=== PATIENT | female | born 1945 | race Caucasian/White ===

== ENCOUNTER → 2017-08-16 10:18 | Outpatient (CLI) | payer MEDICARE, SELFPAY ==
--- NOTE | 2017-08-16 10:23 | MM_ITS ---
. MM Dig screening mamm BI w/CAD CAD Screening ORDERING PHYSICIAN : Artem Osborne MD PATIENT AGE: 72 years GENDER: Female COMPARISON: Previous mammograms: August 2016, July 2015, June 2014. May 2013 INDICATION: No hormones no new complaints noncontributory family history TECHNIQUE: Standard CC and MLO images were obtained. R2 CAD reviewed. FINDINGS: Low-density breast with generalized fatty replacement bilaterally . There are some small scattered benign spherical calcifications bilaterally compatible with small lipoid cysts. No new areas of concern. Stable appearance and architecture both breast. No architectural distortion.. No areas of concern. . IMPRESSION: No new areas of concern. Stable bilateral mammogram. Low-density breast with Fatty replacement bilaterally. BI-RADS Category: 1 Negative RECOMMENDED FOLLOW-UP: 1YR - 1 YEAR FOLLOW-UP (A letter has been sent to the patient regarding results of the study.)
== END ==
PROVIDERS: PCP Family Medicine; Visit Provider Family Medicine
DX: Z12.31 Encounter for screening mammogram for malignant neoplasm of breast (principal)
CPT/HCPCS: 77067

== ENCOUNTER → 2018-01-03 10:21 | Outpatient (CLI) | payer MEDICARE, SELFPAY ==
[2018-01-03 11:14] LABS: Blood Urea Nitrogen 22 mg/dL (7-18); Creatinine,Serum 1.37 mg/dL (0.55-1.02); Estimated Glomerular Filt Rate 38 ml/min (>60); GFR (African American) 46 ML/MIN (>60)
== END ==
PROVIDERS: PCP Family Medicine; Visit Provider Family Medicine
DX: R10.32 Left lower quadrant pain (principal)
CPT/HCPCS: 36415; 82565; 84520

== ENCOUNTER → 2018-01-06 09:33 | Outpatient (CLI) | payer MEDICARE, SELFPAY ==
[2018-01-06 10:44] LABS: Blood Urea Nitrogen 22 mg/dL (7-18); Creatinine,Serum 1.09 mg/dL (0.55-1.02); Estimated Glomerular Filt Rate 49 ml/min (>60); GFR (African American) 60 ML/MIN (>60)
== END ==
PROVIDERS: PCP Family Medicine; Visit Provider Family Medicine
DX: N28.9 Disorder of kidney and ureter, unspecified (principal)
CPT/HCPCS: 36415; 82565; 84520

== ENCOUNTER → 2018-01-10 10:11 | Outpatient (CLI) | payer MEDICARE, SELFPAY ==
--- NOTE | 2018-01-10 10:20 | CT_ITS ---
CT abdomen pelvis w con CLINICAL INDICATION: Lower abdominal pain, left lower quadrant pain, nausea and diarrhea ITS.REASON: LLQ PAIN ORDERING PHYSICIAN: Artem Osborne MD PATIENT AGE: 72 years COMPARISON: None TECHNIQUE: Axial images obtained with sagittal and coronal reformats. All CT scans at the facility use one or more dose reduction, viz: automated exposure control, ma/kV adjustment per patient size (including targeted exams where dose is matched to indication, i.e. head), or iterative reconstruction technique. PROCEDURE: Oral Contrast: Redicat IV Contrast: 75 mL's of Isovue-370. FINDINGS: There is an 8 mm nodular opacity in the left lung base nonspecific. Mitral valve annular calcifications are present and there are coronary artery calcifications noted. 5 mm isodensity is present in the right hepatic lobe nonspecific. The liver is otherwise unremarkable. There has been a prior cholecystectomy with mild ductal dilatation. Small focus of gas noted in the lateral aspect of the pancreatic head and may be due to a diverticulum of the duodenum. This appears anterior to the common bile duct. The adrenal glands and pancreas are unremarkable. There are nonobstructing bilateral renal calculi measuring up to 3 mm in the lower pole on the right and 8 mm in the mid to lower pole on the left. No hydronephrosis. No ureteral calculi. There is a 3.5 cm left renal cyst. There is some peripheral calcification along the lower aspect of the cyst nonspecific. Follow-up recommended to confirm stability. There is diverticulosis of the descending colon. No evidence of diverticulitis. Small umbilical hernia containing fat. No pelvic mass abnormal fluid collection or focal inflammatory change evident within the pelvis. Multilevel degenerative disc disease is present in the lumbar spine. IMPRESSION: 1. No acute findings. 2. Nonobstructing bilateral renal calculi. 3. Diverticulosis of the descending colon. No evidence of diverticulitis 4. Other nonacute findings as described above
== END ==
PROVIDERS: PCP Family Medicine; Visit Provider Family Medicine
DX: R10.32 Left lower quadrant pain (principal)
CPT/HCPCS: 74177; Q9967

== ENCOUNTER → 2018-01-13 14:37 | Outpatient (CLI) | payer MEDICARE, SELFPAY ==
[2018-01-13 14:40] LABS: Microscopic, Urine URINE MICROSCOPIC (MICROSCOPIC)
[2018-01-13 15:00] LABS: Appearance,Urine SL CLOUDY (Clear); Bilirubin,Urine Negative (Negative); Blood, Urine Negative (Negative); Color,Urine YELLOW (Yellow); Glucose,Urine (UA) Negative (Negative); Ketones,Urine Negative (Negative); Leukocyte Esterase,Urine 2+ (Negative); Nitrate,Urine Negative (Negative); Protein,Urine Negative (Negative); Urobilinogen,Urine 0.2 EU/dl (0.2)
[2018-01-13 15:27] LABS: Bacteria,Urine 2+ /lpf; RBC,Urine Occasional #/hpf (0-3); WBC,Urine 20-50 #/hpf (0-3)
== END ==
PROVIDERS: PCP Family Medicine; Visit Provider Family Medicine
DX: N39.0 Urinary tract infection, site not specified (principal)
CPT/HCPCS: 81001; 87086; 87088; 87186

== ENCOUNTER → 2018-02-02 08:45 | Outpatient (CLI) | payer MEDICARE, SELFPAY ==
--- NOTE | 2018-02-02 09:16 | MR_ITS ---
MR abdomen wo/w con 3-D MRCP included Ordering Physician: Krystin Munoz Patient Age: 72 years: Female HISTORY: ITS.REASON: Small LIVER MASSreported on a previous CT abdominal pain 9 months intermittent nausea vomiting. TECHNIQUE: Pre and postcontrast imaging abdomen. Precontrast images: Multiplanar multisequence imaging 1.5 T MR Dynamic Postcontrast imaging following 17 mL ProHance with subsequent axial arterial phase, venous phase, equilibrium phase and 5 minute delayed imaging performed along with the three-minute coronal postcontrast image In addition to MRCP performed which included 3-D processing presentation of this data. It. 76 CPT Today's study images extends down to the superior to the iliac crest.-Just to the inferior aspect of kidneys. Pelvis not imaged COMPARISON :CT abdomen pelvis from 01/10/2018 FINDINGS Lung bases. No prominent findings. Breathing motion Motion artifact obscures the small likely benign 8mm nodular density just above left hemidiaphragm. Also note similar small focal nodular density adjacent right heart border just above right hemidiaphragm... I suspect these are benign densities possibility due to some scarring but would benefit from a follow-up CT chest May-July. Heart upper normal in size. No pericardial effusion. Pre and postcontrast MR Abdomen: Liver. Very small 6 mm area at the central right lobe liver is again noted. Benign-appearing feature. Fluid signal and overall suspect this is most likely a small debris filled cyst by MR as well as CT.. This shows no enhancement. No additional lesions in liver Gallbladder removed surgically.No biliary ductal dilatation. Pancreas. There is normal. No masses. No pancreatic ductal dilatation. . Small dot of air between just anterior to the ampulla of duodenum/most likely related air and duodenum were possibly a small diverticulum. 'Prior CT and today's study. What is seen at the small bowel and stomach are unremarkable on this MR. The upper portions of the large bowel unremarkable. Pelvis was not imaged. The final images include the Aorta normal caliber with no retroperitoneal adenopathy here at the upper abdomen Right Kidney:. Unremarkable Left Kidney.: 3.6 cm AP x 3.2 cm transverse. Lobulated cyst upper pole left kidney There is layering of different signal character fluid within posterior aspect of this slightly lobulated/slightly multilocular cyst. This likely reflects some hemorrhagic cyst component with the deep dependent fluid posteriorly dark on T1 weighted images and bright on T2... Just opposite of the typical simple cyst fluid. This area has a Rather Vandem[place] leaf shape with few thin septations associated but with no definitive enhancement. Also there likely some minimal calcification inferior margin of the cyst as seen on previous CT. This Bosniak 2F type cyst would also benefit from follow-up CT abdomen with contrast May-July 2018. . There is also flat ovoid cyst off the anterior mid right kidney measuring near 18 transverse x 10 mm AP. There was a moderate size 7 mm calculus immediately inferior & adjacent to the medial aspect of the cyst on prior recent CT. This Calcification difficult to appreciate by MR. Other small renal calculi seen on prior CT but again not evident on MR-Due to the nature of this MR.; (Whereas CT is a highly sensitive calcification detector).. Multilevel degenerative disc changes spine. Moderate Dextroscoliosis at the lumbar spine most notable. . Slight compensatory levoscoliosis at the thoracolumbar region/lower thoracic spine. IMPRESSION 1. Liver. No significant appearing findings. Tiny 6 mm probably benign cyst again seen at the central right lobe. Stable since recent CT 2. Left Renal Cysts ... Most notable Up to
[2018-02-02 09:26] LABS: Alanine Aminotransferase 21 U/L (12-78); Albumin Level 3.7 gm/dL (3.4-5.0); Alkaline Phosphatase 140 U/L (46-116); Anion Gap 10.9 mEq/L (5-15); Aspartate Amino Transferase 14 U/L (15-37); Bilirubin,Total 0.8 mg/dL (0.2-1.0); Blood Urea Nitrogen 19 mg/dL (7-18); Calcium 8.8 mg/dL (8.5-10.1); Carbon Dioxide 28 mmol/L (21.0-32.0); Chloride 104 mmol/L (98-107); Estimated Glomerular Filt Rate 62 ml/min (>60); GFR (African American) 75 ML/MIN (>60); Globulin 3.6 gm/dl (1.3-3.2); Glucose 101 mg/dL (74-106); Potassium 3.9 mmoL/L (3.5-5.1); Sodium 139 mmol/L (136-145); Total Protein,Serum 7.3 gm/dL (6.4-8.2)
[2018-02-02 09:31] LABS: Basophils # 0.1 K/mm3 (0-0.2); Basophils % 0.6 % (0.1-2.0); Eosinophils # 0.3 K/mm3 (0.0-0.4); Eosinophils % 3.4 % (0.1-12.0); Hematocrit 40.1 % (37.0-47.0); Lymphocytes # 2.1 K/mm3 (0.7-4.5); Lymphocytes % 28.4 K/mm3 (10-50); Mean Corpuscular HGB Conc 32.6 g/dL (31.8-35.4); Mean Corpuscular Hemoglobin 29.2 pg (27.0-31.2); Mean Corpuscular Volume 89.8 fl (81-99); Mean Platelet Volume 6.9 fl (7.4-10.4); Monocytes # 0.5 K/mm3 (0.1-1.0); Monocytes % 6.1 % (1.7-9.3); Neutrophils # 4.6 K/mm3 (1.8-7.8); Neutrophils % 61.5 % (37.0-80.0); Platelet Count 274 K/mm3 (142-424); Red Blood Count 4.46 M/mm3 (4.20-5.40); Red Cell Distribution Width 15.6 % (11.5-17.5); White Blood Count 7.5 K/mm3 (4.8-10.8)
--- NOTE | 2018-02-02 10:52 | HMH.ITSHM ---
ASTORVASTATIN LOSARTAN LEVOTHYROXINE ASPIRIN POTASSIUM VITAMIN D
[2018-02-03 12:40] LABS: AFP, Tumor Marker 10.3 ng/mL (0.0-8.3)
== END ==
PROVIDERS: PCP Family Medicine; Visit Provider Nurse Practitioner Acute Care
DX: R16.0 Hepatomegaly, not elsewhere classified (principal); R93.2 Abnormal findings on diagnostic imaging of liver and biliary tract
CPT/HCPCS: 36415; 74183; 80053; 82105; 85025; A9576

== ENCOUNTER → 2018-02-13 10:09 | Outpatient (CLI) | payer MEDICARE, SELFPAY ==
[2018-02-13 11:02] LABS: Basophils % 0.5 % (0.1-2.0); Eosinophils # 0.2 K/mm3 (0.0-0.4); Eosinophils % 2.7 % (0.1-12.0); Hematocrit 36.5 % (37.0-47.0); Hemoglobin 12.2 g/dL (12.2-16.2); Lymphocytes # 2.2 K/mm3 (0.7-4.5); Lymphocytes % 28.2 K/mm3 (10-50); Mean Corpuscular HGB Conc 33.5 g/dL (31.8-35.4); Mean Corpuscular Hemoglobin 29.5 pg (27.0-31.2); Mean Corpuscular Volume 88.1 fl (81-99); Mean Platelet Volume 7.2 fl (7.4-10.4); Monocytes # 0.4 K/mm3 (0.1-1.0); Monocytes % 5.3 % (1.7-9.3); Neutrophils # 4.8 K/mm3 (1.8-7.8); Neutrophils % 63.2 % (37.0-80.0); Platelet Count 286 K/mm3 (142-424); Red Blood Count 4.14 M/mm3 (4.20-5.40); Red Cell Distribution Width 14.7 % (11.5-17.5); White Blood Count 7.6 K/mm3 (4.8-10.8)
[2018-02-13 11:06] LABS: INR 1.02 (0.9-1.1); Prothrombin Time 10.5 seconds (9.4-11.8)
[2018-02-13 11:53] LABS: Alanine Aminotransferase 18 U/L (12-78); Albumin Level 3.5 gm/dL (3.4-5.0); Albumin/Globulin Ratio 1.1 (1.1-1.8); Alkaline Phosphatase 128 U/L (46-116); Anion Gap 14.2 mEq/L (5-15); Aspartate Amino Transferase 17 U/L (15-37); Bilirubin,Total 0.7 mg/dL (0.2-1.0); Blood Urea Nitrogen 23 mg/dL (7-18); Calcium 9.1 mg/dL (8.5-10.1); Carbon Dioxide 27 mmol/L (21.0-32.0); Chloride 104 mmol/L (98-107); Creatinine,Serum 0.93 mg/dL (0.55-1.02); Estimated Glomerular Filt Rate 59 ml/min (>60); Ferritin 24 ng/mL (8-388); GFR (African American) 72 ML/MIN (>60); Globulin 3.1 gm/dl (1.3-3.2); Glucose 117 mg/dL (74-106); Potassium 3.2 mmoL/L (3.5-5.1); Sodium 142 mmol/L (136-145); Total Protein,Serum 6.6 gm/dL (6.4-8.2)
[2018-02-14 09:18] LABS: Hep A Ab, IgM Negative (Negative); Hepatitis B Core Antibody IgM Negative (Negative); Hepatitis B Surface Antigen Negative (Negative); Iron 74 ug/dL (27-139); Iron Saturation 23 % (15-55); UIBC 253 ug/dL (118-369)
[2018-02-14 10:20] LABS: Ceruloplasmin 28.7 mg/dL (19.0-39.0); Immunoglobulin A, Qn 226 mg/dL (64-422); Immunoglobulin G, Qn 840 mg/dL (700-1600)
[2018-02-14 15:24] LABS: Angiotensin Converting Enzyme 38 U/L (14-82)
[2018-02-15 07:29] LABS: AFP, Tumor Marker 9.2 ng/mL (0.0-8.3)
[2018-02-15 07:29] LABS: Actin (Smooth Muscle) Antibody 10 Units (0-19); Deamidated Gliadin Abs, IgA 4 units (0-19); Endomysial IgA Antibody Negative (Negative); Hepatitis C Antibody <0.1 s/co ratio (0.0-0.9); Immunoglobulin M, Qn 82 mg/dL (26-217); Liver-Kidney Microsomal Ab <1.0 Units (0.0-20.0); Mitochondrial (M2) Antibody <20.0 Units (0.0-20.0); Tissue Transglutaminase IgG Ab <2 U/mL (0-5)
[2018-02-15 07:30] LABS: Antinuclear Antibodies, IFA Negative (.)
[2018-02-15 14:19] LABS: Deamidated Gliadin Abs, IgG 3 units (0-19); Tissue Transglutaminase IgA Ab <2 U/mL (0-3)
[2018-02-15 16:24] LABS: Alpha-1-Antitrypsin 150 mg/dL (90-200)
[2018-02-16 08:08] LABS: Reticulin IgA Antibody Negative titer (Neg:<1:2.5)
[2018-02-16 09:24] LABS: ALT (SGPT) P5P 11 IU/L (0-40); AST (SGOT) P5P 19 IU/L (0-40); Alpha 2-Macroglobulins, Qn 190 mg/dL (110-276); Apolipoprotein A-1 126 mg/dL (116-209); Bilirubin, Total 0.5 mg/dL (0.0-1.2); Cholesterol, Total 137 mg/dL (100-199); Fibrosis Score 0.21 (0.00-0.21); GGT 15 IU/L (0-60); Glucose 116 mg/dL (65-99); Haptoglobin 181 mg/dL (34-200); Steatosis Score 0.58 (0.00-0.30); Triglycerides 168 mg/dL (0-149)
== END ==
PROVIDERS: PCP Family Medicine; Visit Provider Nurse Practitioner Acute Care
DX: R94.5 Abnormal results of liver function studies (principal); R16.0 Hepatomegaly, not elsewhere classified; K57.30 Diverticulosis of large intestine without perforation or abscess without bleeding; K59.00 Constipation, unspecified; K30 Functional dyspepsia; R93.3 Abnormal findings on diagnostic imaging of other parts of digestive tract
CPT/HCPCS: 36415; 80053; 80074; 81256; 82103; 82104; 82105; 82164; 82390; 82728; 82784; 83516; 83540; 83550; 85025; 85610; 86038; 86255; 86256; 86376

== ENCOUNTER → 2018-03-06 10:44 | Outpatient (POV) | payer MEDICARE, SELFPAY | PROVIDERS: Visit Provider Nurse Practitioner Acute Care | DX: Z00.00 Encounter for general adult medical examination without abnormal findings (principal) ==

== ENCOUNTER → 2018-03-09 09:03 | Outpatient (CLI) | payer MEDICARE, SELFPAY ==
[2018-03-09 09:06] LABS: Microscopic, Urine URINE MICROSCOPIC (MICROSCOPIC)
[2018-03-09 09:18] LABS: Appearance,Urine CLEAR (Clear); Bilirubin,Urine Negative (Negative); Blood, Urine Negative (Negative); Color,Urine YELLOW (Yellow); Glucose,Urine (UA) Negative (Negative); Ketones,Urine Negative (Negative); Leukocyte Esterase,Urine Negative (Negative); Nitrate,Urine Negative (Negative); Protein,Urine Negative (Negative); Urobilinogen,Urine 0.2 EU/dl (0.2)
[2018-03-09 09:29] LABS: Bacteria,Urine 1+ /lpf; Mucus,Urine 3+ /lpf
== END ==
PROVIDERS: Visit Provider Family Medicine
DX: Z87.440 Personal history of urinary (tract) infections (principal); R82.90 Unspecified abnormal findings in urine
CPT/HCPCS: 81001; 87086

== ENCOUNTER → 2018-05-15 16:06 | Outpatient (POV) | payer MEDICARE, SELFPAY | PROVIDERS: Visit Provider Nurse Practitioner Acute Care | DX: Z00.00 Encounter for general adult medical examination without abnormal findings (principal) ==

== ENCOUNTER → 2018-06-21 09:29 | Outpatient (CLI) | payer MEDICARE, SELFPAY ==
--- NOTE | 2018-06-21 09:34 | CT_ITS ---
CT chest w con HISTORY: Follow-up lung nodule ITS.REASON: LUNG NODULE ORDERING PHYSICIAN: Artem Osborne MD PATIENT AGE: 73 years COMPARISON: 01/10/2018 TECHNIQUE: Axial images obtained following the administration of 75 mL of Isovue 370 . Sagittal, and coronal reformatted images are also generated and reviewed. All CT scans at the facility use one or more dose reduction, viz: automated exposure control, ma/kV adjustment per patient size (including targeted exams where dose is matched to indication, i.e. head), or iterative reconstruction technique. FINDINGS: No mediastinal or hilar mass or adenopathy is evident. There is a small hiatal hernia. Coronary artery calcifications are present. There is a 12 x 9 mm nodular opacity in the right lung base medially adjacent to the right heart border. Not significantly changed. Continued follow-up is recommended. Small nodular opacities present in the left lung base well measuring 8 mm unchanged. No effusions or infiltrates. No acute bony findings. There is mild thoracic scoliosis convex left with tortuosity of the thoracic aorta. There are degenerative changes in the thoracic spine. IMPRESSION: There is a 12 x 8 mm nodular opacity in the right lung base medially possibly due to an intrapulmonary lymph node. Cannot exclude the possibility of neoplasm. The nodular opacity in the left lung base is unchanged and may be related to an area of fibrosis. Continued six-month follow-up is recommended.
--- NOTE | 2018-06-21 09:35 | CT_ITS ---
CT abdomen w con CLINICAL INDICATION: Follow-up renal mass ITS.REASON: RENAL NEOPLASM ORDERING PHYSICIAN: Artem Osborne MD PATIENT AGE: 73 years COMPARISON: 02/02/2018, 01/10/2018 TECHNIQUE: Axial images obtained with sagittal and coronal reformats. All CT scans at the facility use one or more dose reduction, viz: automated exposure control, ma/kV adjustment per patient size (including targeted exams where dose is matched to indication, i.e. head), or iterative reconstruction technique. PROCEDURE: Oral Contrast: None IV Contrast: 75 mL's Optiray 350. FINDINGS: Lower thorax: Please see chest CT report of same day for description of the lung bases There is a small isodensity in the right hepatic lobe at 4 mm not significant change. No new liver lesions evident. Postcholecystectomy change. The spleen, adrenal glands, and pancreas are unremarkable. There is a small duodenal diverticulum projecting off the descending portion of the duodenum medially. A lobulated left renal cyst is once again noted along the posterior aspect of the left kidney measuring 3.6 x 3.4 cm not significant changed. There is minimal calcification along the wall process anteriorly. A nonobstructing stone is present in the mid pole of the left kidney at 10 mm. 4 mm stone along the lower pole the left kidney nonobstructing as well as a additional 2 mm stone. These are not significantly changed. Punctate calculus also noted lower pole of the right kidney at 2 mm. Calyceal diverticulum is present in the upper pole on the left at 18 mm unchanged. No new abnormalities of the kidneys. There is a small umbilical hernia containing fat. No acute bony anomalies. There are degenerative changes of the thoracic lumbar spine. IMPRESSION: Overall stable CT appearance of the upper abdomen with bilateral nephrolithiasis and lobulated left renal cyst as well as a small calyceal diverticulum. No change 4 mm isodensity of the liver which may represent small hepatic cyst.
--- NOTE | 2018-06-21 10:01 | HMH.ITSHM ---
Current Home Medications as stated by this patient Pebbles Jackson or account services representative. []LIPITOR,LOSARTIN,LEVOTHYROXINE,ASPRIN BACTRIM
== END ==
PROVIDERS: PCP Family Medicine; Visit Provider Family Medicine
DX: D49.519 Neoplasm of unspecified behavior of unspecified kidney (principal); R91.1 Solitary pulmonary nodule
CPT/HCPCS: 71260; 74160

== ENCOUNTER → 2018-09-08 09:10 | Outpatient (CLI) | payer MEDICARE, SELFPAY ==
--- NOTE | 2018-09-08 09:13 | MM_ITS ---
MM Dig screening mamm BI w/CAD ORDERING PHYSICIAN : Artem Osborne MD PATIENT AGE: 73 years GENDER: Female COMPARISON: August, July 2015. June 2014 INDICATION: I.Routine screening mammogram. Period. No hormones. No new complaints. Noncontributory family history. TECHNIQUE: Standard CC and MLO images were obtained. R2 CAD reviewed. Additional CC nipple profile view bilateral. FINDINGS: Low-density breast with diffuse fatty replacement.. Mammography screening is most optimal breast of this character No new areas of significant concern. No suspicious nor dominant mass Scattered benign calcifications bilaterally. Tiny oil cysts bilaterally. Some with partially calcified spherical margin. RIGHT BREAST:Stable right mammogram follow-up in one year LEFT BREAST:Stable left mammogram. . Follow up one year bilateral IMPRESSION: ............ Stable bilateral mammogram with no significant new findings. Low-density breast. Diffuse fatty replacement Bilateral follow-up one year recommended BI-RADS Category: 1 Negative RECOMMENDED FOLLOW-UP: 1YR 1 YEAR FOLLOW-UP (A letter has been sent to the patient regarding results of the study.)
== END ==
PROVIDERS: PCP Family Medicine; Visit Provider Family Medicine
DX: Z12.31 Encounter for screening mammogram for malignant neoplasm of breast (principal)
CPT/HCPCS: 77067

== ENCOUNTER → 2019-05-22 14:48 | Outpatient (POV) | payer MEDICARE, SELFPAY | PROVIDERS: Visit Provider Dermatology | DX: Z00.00 Encounter for general adult medical examination without abnormal findings (principal) ==

== ENCOUNTER → 2019-12-19 09:14 | Outpatient (CLI) | payer MEDICARE, SELFPAY ==
[2019-12-19 09:46] LABS: Basophils % 0.5 % (0.1-2.0); Eosinophils # 0.2 K/mm3 (0.0-0.4); Eosinophils % 2.6 % (0.1-12.0); Hematocrit 35.2 % (37.0-47.0); Hemoglobin 11.9 g/dL (12.2-16.2); Lymphocytes # 1.9 K/mm3 (0.7-4.5); Lymphocytes % 26.8 % (10-50); Mean Corpuscular HGB Conc 33.9 g/dL (31.8-35.4); Mean Corpuscular Hemoglobin 29.6 pg (27.0-31.2); Mean Corpuscular Volume 87.3 fl (81-99); Mean Platelet Volume 7.3 fl (7.4-10.4); Monocytes # 0.3 K/mm3 (0.1-1.0); Monocytes % 4.2 % (1.7-9.3); Neutrophils # 4.7 K/mm3 (1.8-7.8); Neutrophils % 65.9 % (37.0-80.0); Platelet Count 299 K/mm3 (142-424); Red Blood Count 4.03 M/mm3 (4.20-5.40); Red Cell Distribution Width 15.9 % (11.5-17.5); White Blood Count 7.1 K/mm3 (4.8-10.8)
[2019-12-19 10:01] LABS: Chloride 104 mmol/L (98-107)
[2019-12-19 10:02] LABS: Potassium 3.7 mmoL/L (3.5-5.1); Sodium 139 mmol/L (136-145)
[2019-12-19 10:04] LABS: Alanine Aminotransferase 14 U/L (12-78); Albumin Level 3.9 g/dl (3.5-5.0); Albumin/Globulin Ratio 1.4 (1.1-1.8); Alkaline Phosphatase 136 U/L (38-126); Anion Gap 12.7 mEq/L (5-15); Aspartate Amino Transferase 27 U/L (14-36); Blood Urea Nitrogen 18 mg/dl (7-17); Carbon Dioxide 26 mmol/L (22.0-30.0); Estimated Glomerular Filt Rate 70 ml/min (>60); GFR (African American) 85 ML/MIN (>60); Globulin 2.7 g/dL (1.3-3.2); Total Protein,Serum 6.6 g/dl (6.3-8.2)
[2019-12-19 10:05] LABS: Calcium 9.1 mg/dl (8.4-10.2); Chol/HDL Ratio 2.7 (1-3.5); Cholesterol 152 mg/dl (140-200); Glucose 102 mg/dl (74-100); HDL Cholesterol 57 mg/dl (40-60); Triglycerides 118 mg/dl (30-150); VLDL Cholesterol 24 mg/dL (0-40)
[2019-12-19 10:16] LABS: Direct LDL Cholesterol 76.19 mg/dL (100-129)
[2019-12-19 10:20] LABS: Microalbumin/Creatinine Ratio 14.2
[2019-12-19 10:22] LABS: Free T4 (Free Thyroxine) 1.74 ng/dl (0.78-2.19)
[2019-12-19 10:31] LABS: Creatinine,Urine Random 134 mg/dL (Not Estab.)
[2019-12-20 16:17] LABS: Antistreptolysin O Ab 58.7 IU/mL (0.0-200.0)
== END ==
PROVIDERS: Visit Provider Family Medicine
DX: E89.0 Postprocedural hypothyroidism (principal); E78.00 Pure hypercholesterolemia, unspecified; I10 Essential (primary) hypertension; J02.9 Acute pharyngitis, unspecified
CPT/HCPCS: 36415; 80053; 80061; 82043; 82570; 84439; 84443; 85025; 86060

== ENCOUNTER → 2019-12-28 14:08 | Outpatient (CLI) | payer MEDICARE, SELFPAY ==
--- NOTE | 2019-12-28 14:11 | CT_ITS ---
PROCEDURE: CT SOFT TISSUE NECK WO CON CLINICAL HISTORY: DISORDER OF NECK, NODULE OF NECK Right side neck/head pain; COMPARISON: No exams were available for comparison TECHNIQUE: Oral Contrast: None IV Contrast: None Axial images obtained with sagittal and coronal reformats. All CT scans at the facility use one or more dose reduction, viz: automated exposure control, ma/kV adjustment per patient size (including targeted exams where dose is matched to indication, i.e. head), or iterative reconstruction technique. FINDINGS: Lobular soft tissue density is noted in the central and right aspect of the sphenoid sinus. This is somewhat more dense than what 1 would expect for simple retention cyst measuring approximately 1.6 by 1.6 cm with a Hounsfield unit measurement of 60. No underlying bony destructive process. The nasopharynx, oropharynx and hypopharynx and larynx and subglottic region have an unremarkable appearance. The epiglottis has a normal appearance. No obvious thyroid mass. No acute finding in the upper chest although there is good bay and motion artifact. There is degenerative disc disease at C3-C4 C5-C6 and C6-C7. Scattered small nodes are present in the neck with no dominant adenopathy IMPRESSION: 1. 1.6 cm smooth slightly hyperdense lesion of the sphenoid sinus possibly due to a complex retention cyst 2. Otherwise unremarkable CT neck without contrast Dictated by: Josh Leonardo MD 12/29/2019 14:21 Josh Leonardo MD in [place] 12/29/2019 14:21
== END ==
PROVIDERS: PCP Family Medicine; Visit Provider Family Medicine
DX: R22.1 Localized swelling, mass and lump, neck (principal); M53.82 Other specified dorsopathies, cervical region
CPT/HCPCS: 70490

== ENCOUNTER → 2020-01-08 10:46 | Outpatient (POV) | payer MEDICARE, SELFPAY | PROVIDERS: Visit Provider Otolaryngology | DX: Z00.00 Encounter for general adult medical examination without abnormal findings (principal) ==

== ENCOUNTER 2020-02-15 08:30 | Outpatient (RCR) | payer MEDICARE, SELFPAY ==
--- NOTE | 2020-01-09 11:05 | HMH.PTOPEV ---
PT Outpatient Evaluation Rehab PT Outpatient Evaluation Start: 01/09/20 09:58 Freq: Status: Active Protocol: Document 01/09/20 10:50 PHOABISAI (Rec: 01/09/20 11:05 PHORNE [id number]) Electronically Signed By Baljit Anderson, PT 01/09/20 10:50 Outpatient Therapy Subjective History Subjective History Pt is 74 yowf who presents with c/o pain in R side of neck and shld with intermittent tingling to the elbow x 2-3 mos with insidious onset of symptoms. Pt reports she has been doing increased gardening over this time, but no other new activity. She reports intermittent headache as well. She had CT performed which shows cervical DDD. She reports PMH of HTN. Chief Complaint Pain Symptom Type Ache,Sharp,Dull,Tingling Symptoms Relieved By Rest/Positioning Symptoms Aggravated By Physical Activity Prior Functional Limitations None Current Functional Limitations Driving,Sleeping,Recreation Activity Symptom Description Intermittent,Activity Dependent Level of pain today (0-10) 0 Pain scale - at its worst (0-10) 7 Cervical Eval Palpation Cervical Muscles R Cervical Paraspinal,R Suboccipital,R Upper Trapezius Cervical/Thoracic Palpation Findings Tenderness Flexibility Deficits Upper Trapezius Muscle Length (L) Mild Tightness,(R) Moderate Tightness Levaetor Scapulae Muscle Length (L) Mild Tightness,(R) Moderate Tightness Passive Joint Mobility Cervical PIVM Dec: R C3/4 L C3/4 R C4/5 L C4/5 R C5/6 L C5/6 R C6/7 L C6/7 R C7/T1 L C7/T1 WNL: R OA L OA R AA L AA R C2/3 L C2/3 AROM Cervical Spine Extension Active Range of 0-25 Motion (degrees) Cervical Spine Flexion Active Range of 0-45 Motion (degrees) Cervical Spine Ri
== END 2020-02-15 08:35 | disposition home or self-care (01) ==
LOC: PT 08:30
PROVIDERS: PCP Family Medicine; Visit Provider Family Medicine
DX: M50.90 Cervical disc disorder, unspecified, unspecified cervical region (principal); M53.82 Other specified dorsopathies, cervical region
CPT/HCPCS: 97010; 97014; 97033; 97035; 97110; 97140; 97163; G0283

== ENCOUNTER → 2020-06-02 08:57 | Outpatient (POV) | payer MEDICARE, SELFPAY ==
[2020-06-02 09:16] VITALS: BP 125/85; PULSE 74; RESP 18; TEMP 36.8; O2SAT 98; BMI 32.0
--- NOTE | 2020-06-02 13:34 | HMH.PMCON ---
Assessment and Plan (1) Occipital neuralgia Status: Chronic Category: Medical Code(s): M54.81 - Occipital neuralgia - Assessment and plan all Dx Assessment and Plan for all problems:: We will start the patient on gabapentin 100 mg up to 3 times at bedtime. We will also schedule a right occipital nerve block for the patient. We had a long discussion in regards to occipital nerve pain and what to expect. Patient's been instructed to call the office if yet any issues prior to next appointment. Dr. Sommer has reviewed this note and agrees with this plan of care. This note was dictated using voice recognition software and may contain errors or omissions HPI - Data of Consult Consult date: 06/02/20 Requesting Physician: Jeanne Santana APRN Primary Care Provider: Artem Osborne MD - Consult Narrative Reason for consult: Neck and head pain History of present illness: Ms. Jackson is a 75 year old female who presents today for consultation in regards to her neck and head pain. While discussing her pain pattern it originates at the base of her skull on the right side and moves up into her scalp. Patient states that if she has this constant nervelike pain. Patient originally thought that this was shingles. Patient has not had any relief from her symptomology for quite some time. She has tried physical therapy with no relief. She tried multiple medications with no relief. Patient rates her pain a 5 out of 10. Patient states she is also having constant headaches. CC: Jeanne Santana APRN [facility] History I have reviewed the patient's past medical history: Yes Medical History: Reports:: Hyperlipidemia, Hypertension Denies:: Cancer, Diabetes Mellitus Type 1, Diabetes Mellitus Type 2, Internal Pacemaker, Lung Disease, MRSA, Seizures *Have you ever received a pneumonia vaccine?: Yes *Have you received a flu vaccine this season?: Yes Other Medical History: Reports: Arthritis Other Surgeries: Yes: Appendectomy, Other (eye sx, adhesion removal). No: Pacemaker Amputation: No Fractures: No - *Social History Smoking Status: Never smoker Alcohol Intake: never *Occupational Status:: retired, other Housing: house Household Members: other *Travel in the last 8 weeks: None Family Hx:: Unable to obtain Review of Systems - Review of Systems ROS General: no recent weight change, no fever, no sleep disturbances Respiratory: no cough, no shortness of air, no recurring pulmonary infections Cardiovascular/Peripheral Vascular: No chest pain, No palpitations, no edema, no shortness of breath. Gastrointestinal: no new onset incontinence, normal bowel movements reported Genitourinary: no new onset incontinence Musculoskeletal: Occipital nerve pain Psychiatric: normal mood/ affect Neurological: [denies new onset weakness in extremities], [denies new onset balance issues] Meds Home Medications Medication Instructions Recorded Confirmed Type L.acidoph,Paracasei, B.lactis 1 each PO DAILY 02/24/18 02/24/18 History [Probiotic] Levothyroxine Sodium [Synthroid 100 mcg PO DAILY 02/24/18 02/24/18 History 100mcg (0.1mg) tablet] Losartan/Hydrochlorothiazide 1 each PO DAILY 02/24/18 02/24/18 History [Losartan-Hctz 100-25 mg Tab] Methylcellulose [Fiber] 500 mg PO DAILY 02/24/18 02/24/18 History Atorvastatin Calcium [Lipitor 20mg 20 mg PO HS 02/27/18 02/27/18 History Tablet] Gabapentin [Neurontin 100mg 100 mg PO TID #90 cap 06/02/20 Rx cap] Allergies Allergy/AdvReac Type Severity Reaction Status Date / Time No Known Allergies Allergy Verified 02/22/18 13:51 Objective Vital signs: Temp Pulse Resp BP Pulse Ox 98.2 F 74 18 125/85 98 06/02/20 09:16 06/02/20 09:16 06/02/20 09:16 06/02/20 09:16 06/02/20 09:16 Narrative: Physical Exam General: Alert and oriented x3, no acute distress, pleasant and cooperative, [on room air] Lungs: Resps E/U, Symmetrical chest
== END ==
PROVIDERS: PCP Family Medicine; Visit Provider Clinical Nurse Specialist Family Health
DX: M54.81 Occipital neuralgia (principal)
CPT/HCPCS: 99212; G0463

== ENCOUNTER 2020-06-13 10:10 | Day surgery (SDC) | payer MEDICARE, SELFPAY ==
[2020-06-13 10:28] VITALS: BP 149/76; PULSE 98; RESP 18; TEMP 36.8; O2SAT 98; BMI 32.0
[2020-06-13 10:50] VITALS: BP 131/74; BP 132/77; PULSE 71; PULSE 85; RESP 18; O2SAT 99
--- NOTE | 2020-06-13 10:50 | HMH.PMPROC ---
- Procedure Date: 06/13/20 Time: 10:50 Anesthesiologist:: Royer Sommer MD Complications:: None Pre-procedure Diagnosis:: Occipital neuralgia Post-procedure Diagnosis:: Same Indications for Procedure:: This patient is a pleasant 75-year-old white female who we are treating for right-sided occipital neuralgia. She has been having headaches and right-sided pain emanating from the base of her skull in the occipital region. We will do a right-sided occipital nerve block to help her with her pain symptoms today. Procedure Details:: Right occipital nerve block Informed consent was obtained the risk and benefits of the procedure were explained to the patient. Patient was taken to the procedure room. The right occiput was cleansed using ChloraPrep. A 25-gauge needle was used and in a fanlike distribution we deposited 10 mL bupivacaine 0.25% and Depo-Medrol 40 mg over the right greater and lesser occipital nerves. Patient tolerated procedure well with no complications. Plan and Disposition:: We will follow-up with her in 2 weeks. Will reevaluate symptoms at that time.
[2020-06-13 11:10] VITALS: BP 158/72; PULSE 85; RESP 20; O2SAT 98
== END 2020-06-13 11:10 | disposition home or self-care (01) ==
LOC: SC.PAINP 10:11
PROVIDERS: PCP Family Medicine; Visit Provider Anesthesiology
DX: M54.81 Occipital neuralgia (principal); I10 Essential (primary) hypertension; E78.5 Hyperlipidemia, unspecified; E03.9 Hypothyroidism, unspecified; Z82.49 Family history of ischemic heart disease and other diseases of the circulatory system; Z83.438 Family history of other disorder of lipoprotein metabolism and other lipidemia
CPT/HCPCS: 64405; J1040

== ENCOUNTER → 2020-07-28 09:11 | Outpatient (POV) | payer MEDICARE, SELFPAY ==
[2020-07-28 09:30] VITALS: BP 142/76; PULSE 100; RESP 20; O2SAT 97; BMI 32.0
--- NOTE | 2020-07-28 12:19 | HMH.PAINSOAP ---
[facility] Pain Management SOAP Note Subjective:: Patient is a pleasant 75-year-old old white female who presents today for follow-up. Patient was given a right occipital nerve block which was beneficial for a week. Since then her pain has returned and worsened. She is now having symptomology of trigeminal neuralgia including jaw pain, mouth pain, right ear pain. She also has notable swelling at the base of her neck on the anterior side I discussed I do not believe that this is a side effect of the injection however I am concerned in regard to it. She is had her thyroid removed. Patient tried gabapentin with no success. She is very uncomfortable she rates her pain today a 10 out of 10 ROS General: no recent weight change, no fever, no sleep disturbances Respiratory: no cough, no shortness of air, no recurring pulmonary infections Cardiovascular/Peripheral Vascular: No chest pain, No palpitations, no edema, no shortness of breath. Gastrointestinal: no new onset incontinence, normal bowel movements reported Genitourinary: no new onset incontinence Musculoskeletal: Right-sided facial pain, headaches, neck pain, swelling to anterior right side of the neck Psychiatric: normal mood/ affect Neurological: [denies new onset weakness in extremities], [denies new onset balance issues] Objective:: Physical Exam General: Alert and oriented x3, no acute distress, pleasant and cooperative, [on room air] Lungs: Resps E/U, Symmetrical chest expansion, Eyes: PERRL Musculoskeletal: Flexion and extension of cervical spine somewhat guarded secondary to pain, deep tendon reflexes normal, strength in upper and lower extremities [5/5], normal gait noted Neurological: speech clear, school commissioner equal, no gross sensory deficits Assessment:: Occipital neuralgia, trigeminal neuralgia, swelling anterior portion of the neck Plan:: We will send the patient for CT of her neck to help determine the cause of swelling. We will start her on Lyrica 75 mg 1 p.o. twice daily and tramadol 50 mg 1 p.o. 3 times daily I will see her back in 3 days. She has been instructed to call the office if she has any issues prior to her next appointment. Dr. Sommer has reviewed this note and agrees with this plan of care. This note was dictated using voice recognition software and may contain errors or omissions [facility] History I have reviewed the patient's past medical history: Yes Medical History: Reports:: Hyperlipidemia, Hypertension Denies:: Cancer, Diabetes Mellitus Type 1, Diabetes Mellitus Type 2, Internal Pacemaker, Lung Disease, MRSA, Seizures *Have you ever received a pneumonia vaccine?: Yes *Have you received a flu vaccine this season?: Yes Other Medical History: Reports: Arthritis, Thyroid Disease Other Surgeries: Yes: Appendectomy, Cholecystectomy, Other (eye sx, adhesion removal post appendectomy). No: Pacemaker Amputation: No Fractures: No - *Social History Smoking Status: Never smoker Alcohol Intake: never *Occupational Status:: retired Housing: house Household Members: spouse *Travel in the last 8 weeks: None Family Hx:: Unable to obtain
== END ==
PROVIDERS: PCP Family Medicine; Visit Provider Clinical Nurse Specialist Family Health
DX: R22.1 Localized swelling, mass and lump, neck (principal); M54.81 Occipital neuralgia; G50.0 Trigeminal neuralgia
CPT/HCPCS: 99212; G0463

== ENCOUNTER → 2020-07-29 07:47 | Outpatient (CLI) | payer MEDICARE, SELFPAY ==
--- NOTE | 2020-07-29 07:50 | CT_ITS ---
PROCEDURE: CT CERVICAL SPINE WO CON CLINICAL INDICATION: NECK/SHOULDER PAIN COMPARISON: No exams were available for comparison TECHNIQUE: Axial images obtained with sagittal and coronal reformats. All CT scans at the facility use one or more dose reduction, viz: automated exposure control, ma/kV adjustment per patient size (including targeted exams where dose is matched to indication, i.e. head), or iterative reconstruction technique. Axial spiral CT scanning performed of the cervical spine beginning at the base of the skull and continuing to the upper T-spine. 3-D multiplanar reconstruction with 3-D manipulation of volumetric data set in image rendering was completed by the radiologist and/or technologist with the supervision of the radiologist on independent workstation. FINDINGS: There is normal alignment. No acute fracture or dislocation. No lytic or blastic change. C2-C3: Unremarkable. C3-C4: Degenerative disc disease with endplate hypertrophic change and subcortical cystic changes as well as a Schmorl's node in the superior endplate of C4. There is mild bilateral foraminal narrowing. There is narrowing of the canal at this level at 11 mm. C3-C4: Unremarkable. C4-C5: Degenerative disc disease with endplate sclerosis and subcortical cystic changes as well as endplate ridging. There is borderline narrowing of the canal at 11 mm. Mild left-sided foraminal narrowing. C6-C7: Degenerative disc disease with endplate sclerotic and subchondral cystic change. C7-T1: Unremarkable. Degenerative disc disease is present at T2-T3. A marker is placed in the right supraclavicular region at an area of palpable concern. No mass or enlarged node evident immediately deep to this region. IMPRESSION: Multilevel cervical spondylosis as detailed above. Dictated by: Josh Leonardo MD 07/29/2020 08:57 Josh Leonardo MD in [place] 07/29/2020 08:57
== END ==
PROVIDERS: PCP Family Medicine; Visit Provider Clinical Nurse Specialist Family Health
DX: M54.2 Cervicalgia (principal); M25.511 Pain in right shoulder
CPT/HCPCS: 72125

== ENCOUNTER → 2020-07-31 08:42 | Outpatient (POV) | payer MEDICARE, SELFPAY ==
[2020-07-31 09:06] VITALS: BP 134/69; PULSE 75; RESP 18; O2SAT 98; BMI 31.4
--- NOTE | 2020-07-31 09:13 | P.CONS_ITS ---
[facility] Pain Management SOAP Note Subjective:: Patient is a pleasant 75-year-old white female who presents today for follow-up. Patient was seen on Tuesday she was having significant pain rating it a 10 out of 10 with symptomology of trigeminal neuralgia including jaw pain, mouth pain, right ear pain. She had notable swelling at the base of her neck on the anterior side on the right. Patient did have a CT scan which showed degenerative changes of the spine however it did not show any issues in the area where she was having swelling. Patient is doing much better she is on Lyrica and tramadol at this time. She rates her pain a 3 out of 10. She is resting comfortably. We discussed additional injections however I do believe she needs to be on the medication for several weeks prior to this. She is agreeable. ROS General: no recent weight change, no fever, no sleep disturbances Respiratory: no cough, no shortness of air, no recurring pulmonary infections Cardiovascular/Peripheral Vascular: No chest pain, No palpitations, no edema, no shortness of breath. Gastrointestinal: no new onset incontinence, normal bowel movements reported Genitourinary: no new onset incontinence Musculoskeletal: Right-sided facial and neck pain Psychiatric: normal mood/ affect Neurological: [denies new onset weakness in extremities], [denies new onset balance issues] Objective:: Physical Exam General: Alert and oriented x3, no acute distress, pleasant and cooperative, [on room air] Lungs: Resps E/U, Symmetrical chest expansion, Eyes: PERRL Musculoskeletal: Flexion and extension of cervical spine somewhat guarded secondary to pain, deep tendon reflexes normal, strength in upper and lower extremities [5/5], normal gait noted Neurological: speech clear, social science manager equal, no gross sensory deficits Assessment:: Degenerative disc disease cervical spine cervical radiculopathy, trigeminal neuralgia Plan:: I will see the patient back in 2 weeks reassess her symptoms at that time she can continue her Lyrica and tramadol until then. She has been instructed to call the office if she has any issues prior to next appointment. Dr. Sommer has reviewed this note and agrees with this plan of care. This note was dictated using voice recognition software and may contain errors or omissions [facility] History I have reviewed the patient's past medical history: Yes Medical History: Reports:: Hyperlipidemia, Hypertension Denies:: Cancer, Diabetes Mellitus Type 1, Diabetes Mellitus Type 2, Internal Pacemaker, Lung Disease, MRSA, Seizures *Have you ever received a pneumonia vaccine?: Yes *Have you received a flu vaccine this season?: Yes Other Medical History: Reports: Arthritis, Thyroid Disease Other Surgeries: Yes: Appendectomy, Cholecystectomy, Other (eye sx, adhesion removal post appendectomy). No: Pacemaker Amputation: No Fractures: No - *Social History Smoking Status: Never smoker Alcohol Intake: never *Occupational Status:: other Housing: house Household Members: spouse *Travel in the last 8 weeks: None Family Hx:: Unable to obtain
== END ==
PROVIDERS: PCP Family Medicine; Visit Provider Clinical Nurse Specialist Family Health
DX: M50.10 Cervical disc disorder with radiculopathy, unspecified cervical region (principal); G50.0 Trigeminal neuralgia
CPT/HCPCS: 99212; G0463

== ENCOUNTER → 2020-08-14 08:55 | Outpatient (POV) | payer MEDICARE, SELFPAY ==
--- NOTE | 2020-08-14 09:11 | P.CONS_ITS ---
[facility] [place] Pain Management SOAP Note Subjective:: Patient is a pleasant 75-year-old white female who presents today for follow-up. Patient rates her pain today a 5 out of 10 she is more good days and bad days she still having quite a bit of neck pain radiating into her right arm at times and up into her room head. She is on Lyrica and tramadol which does help with the pain. Patient had a CT scan showing degenerative changes of the spine in the cervical area. She is continuing with her tramadol and her Lyrica Yung #[id number] reviewed and appropriate. She and I discussed epidural injection she would like to move forward with this I do believe it would benefit her. ROS General: no recent weight change, no fever, no sleep disturbances Respiratory: no cough, no shortness of air, no recurring pulmonary infections Cardiovascular/Peripheral Vascular: No chest pain, No palpitations, no edema, no shortness of breath. Gastrointestinal: no new onset incontinence, normal bowel movements reported Genitourinary: no new onset incontinence Musculoskeletal: Neck pain, headaches, radiculopathy at times Psychiatric: normal mood/ affect Neurological: [denies new onset weakness in extremities], [denies new onset balance issues] Objective:: Physical Exam General: Alert and oriented x3, no acute distress, pleasant and cooperative, [on room air] Lungs: Resps E/U, Symmetrical chest expansion, Eyes: PERRL Musculoskeletal: Flexion and extension of cervical spine somewhat guarded secondary to pain, deep tendon reflexes normal, strength in upper and lower extremities [5/5], normal gait noted Neurological: speech clear, electrician supervisor substation equal, no gross sensory deficits Assessment:: Degenerative disc disease cervical spine cervical radiculopathy, occipital neuralgia trigeminal neuralgia Plan:: We will schedule the patient for C5-C6 cervical epidural steroid injection. Patient is not on any anticoagulation therapy. I will follow-up with her afterwards reassess her symptoms at that time she has been instructed to call the office if she has any issues prior to her next appointment. Dr. Sommer has reviewed this note and agrees with this plan of care. This note was dictated using voice recognition software and may contain errors or omissions [facility] [place] History I have reviewed the patient's past medical history: Yes Medical History: Reports:: Hyperlipidemia, Hypertension Denies:: Cancer, Diabetes Mellitus Type 1, Diabetes Mellitus Type 2, Internal Pacemaker, Lung Disease, MRSA, Seizures *Have you ever received a pneumonia vaccine?: Yes *Have you received a flu vaccine this season?: Yes Other Medical History: Reports: Arthritis, Thyroid Disease Other Surgeries: Yes: Appendectomy, Cholecystectomy, Other (eye sx, adhesion removal post appendectomy). No: Pacemaker Amputation: No Fractures: No - *Social History Smoking Status: Never smoker Alcohol Intake: never *Occupational Status:: other Housing: house Household Members: spouse *Travel in the last 8 weeks: None Family Hx:: Unable to obtain
[2020-08-14 10:02] VITALS: BP 132/79; PULSE 69; RESP 18; O2SAT 98; BMI 32.0
== END ==
PROVIDERS: PCP Family Medicine; Visit Provider Clinical Nurse Specialist Family Health
DX: M50.10 Cervical disc disorder with radiculopathy, unspecified cervical region (principal); G50.0 Trigeminal neuralgia; M54.81 Occipital neuralgia
CPT/HCPCS: 99212; G0463

== ENCOUNTER 2020-08-15 10:11 | Day surgery (SDC) | payer MEDICARE, SELFPAY ==
[2020-08-15 10:26] VITALS: BP 198/73; PULSE 78; RESP 18; TEMP 35.9; O2SAT 97; BMI 32.0
[2020-08-15 11:01] VITALS: BP 142/78; PULSE 79; RESP 18; O2SAT 99
[2020-08-15 11:06] VITALS: BP 142/89; PULSE 85; RESP 18; O2SAT 99
--- NOTE | 2020-08-15 11:09 | HMH.PMPROC ---
- Procedure Date: 08/15/20 Time: 11:09 Anesthesiologist:: Royer Sommer MD Complications:: None Pre-procedure Diagnosis:: Degenerative disc disease of the cervical spine with cervical radiculopathy symptoms Post-procedure Diagnosis:: Same Indications for Procedure:: Patient is a pleasant 75-year-old white female who we are treating for neck pain with cervical radiculopathy symptoms. She has increasing pain in her neck radiating into her right arm and occipital region. We will do a cervical epidural steroid injection today to see if this helps with her pain symptoms. Procedure Details:: Cervical epidural steroid injection under fluoroscopy Informed consent was obtained and the risks and benefits of the procedure was explained to the patient. The patient was taken to the procedure room placed prone on the procedure table. The neck was prepped using ChloraPrep. The skin and subcutaneous tissues were anesthetized using lidocaine. I placed a 18-gauge epidural needle into the C5-C6 interspace and advanced using [id number] to air and fluoroscopic guidance. After confirmation of needle placement in the epidural space with dye, I injected 3 mL's lidocaine 1.5% and Depo-Medrol 80 mg. The patient tolerated the procedure well with no complications. Plan and Disposition:: We will follow-up with her in 2 weeks. Will reevaluate symptoms at that time. If she does not get significant benefit we may proceed with a right occipital nerve block.
[2020-08-15 11:23] VITALS: BP 170/76; PULSE 67; RESP 20; O2SAT 97
== END 2020-08-15 11:24 | disposition home or self-care (01) ==
LOC: SC.PAINP 10:12
PROVIDERS: PCP Family Medicine; Visit Provider Anesthesiology
DX: M50.10 Cervical disc disorder with radiculopathy, unspecified cervical region (principal); E78.5 Hyperlipidemia, unspecified; I10 Essential (primary) hypertension; M19.90 Unspecified osteoarthritis, unspecified site; F41.9 Anxiety disorder, unspecified; F32.9 Major depressive disorder, single episode, unspecified; E07.9 Disorder of thyroid, unspecified; Z90.49 Acquired absence of other specified parts of digestive tract
CPT/HCPCS: 62321; J1040; Q9966

== ENCOUNTER → 2020-09-04 09:44 | Outpatient (POV) | payer MEDICARE, SELFPAY ==
--- NOTE | 2020-09-04 10:11 | P.CONS_ITS ---
[facility] Pain Management SOAP Note Subjective:: Is a pleasant 75-year-old white female who presents today for follow-up after cervical epidural steroid injection. Patient is doing much better rating her pain a 2 out of 10. Patient is still on Lyrica 75 mg 1 p.o. twice daily. Patient denies side effects to this medication. Patient has had a right occipital nerve block in the past and at the time did not get much relief however her complaints today are that of right occipital neuralgia. Patient's been having headaches along with pain at the base of her skull. Patient and I discussed revisiting the right occipital nerve block and she is agreeable. ROS General: no recent weight change, no fever, no sleep disturbances Respiratory: no cough, no shortness of air, no recurring pulmonary infections Cardiovascular/Peripheral Vascular: No chest pain, No palpitations, no edema, no shortness of breath. Gastrointestinal: no new onset incontinence, normal bowel movements reported Genitourinary: no new onset incontinence Musculoskeletal: Headache, neck pain Psychiatric: normal mood/ affect Neurological: [denies new onset weakness in extremities], [denies new onset balance issues] Objective:: Physical Exam General: Alert and oriented x3, no acute distress, pleasant and cooperative, [on room air] Lungs: Resps E/U, Symmetrical chest expansion, Eyes: PERRL Musculoskeletal: Flexion and extension of cervical spine somewhat guarded secondary to pain, deep tendon reflexes normal, strength in upper and lower extremities [5/5], slightly antalgic gait noted Neurological: speech clear, information systems security manager equal, no gross sensory deficits Assessment:: Occipital neuralgia Plan:: We will plan on a right occipital nerve block for the patient. I do believe it would benefit her given her symptomology. She has been instructed to call the office if she has any issues prior to her next appointment. Dr. Sommer has reviewed this note and agrees with this plan of care. This note was dictated using voice recognition software and may contain errors or omissions [facility] History I have reviewed the patient's past medical history: Yes Medical History: Reports:: Hyperlipidemia, Hypertension Denies:: Cancer, Diabetes Mellitus Type 1, Diabetes Mellitus Type 2, Internal Pacemaker, Lung Disease, MRSA, Seizures *Have you ever received a pneumonia vaccine?: No *Have you received a flu vaccine this season?: No Other Medical History: Reports: Arthritis, Thyroid Disease Other Surgeries: Yes: Appendectomy, Cholecystectomy, Other (eye sx, adhesion removal post appendectomy). No: Pacemaker Amputation: No Fractures: No - *Social History Smoking Status: Never smoker Alcohol Intake: never *Occupational Status:: retired Housing: house Household Members: spouse *Travel in the last 8 weeks: None Family Hx:: Unable to obtain
[2020-09-04 10:12] VITALS: BP 141/71; PULSE 74; RESP 18; TEMP 36.8; O2SAT 98; BMI 32.0
== END ==
PROVIDERS: PCP Family Medicine; Visit Provider Clinical Nurse Specialist Family Health
DX: M54.81 Occipital neuralgia (principal)
CPT/HCPCS: 99212; G0463

== ENCOUNTER 2020-09-19 13:44 | Day surgery (SDC) | payer MEDICARE, SELFPAY ==
[2020-09-19 14:04] VITALS: BP 148/89; PULSE 58; RESP 18; TEMP 36.7; O2SAT 99; BMI 32.0
--- NOTE | 2020-09-19 14:21 | P.PCN_ITS ---
- Procedure Date: 09/19/20 Time: 14:21 Anesthesiologist:: Royer Sommer MD Complications:: None Pre-procedure Diagnosis:: Occipital neuralgia Post-procedure Diagnosis:: Same Indications for Procedure:: Patient is a pleasant 75-year-old white female who we are treating for right- sided occipital neuralgia. She has had previous cervical epidural steroid injection which did help some. She has had an occipital nerve block in the past which did not give her much relief. We will do a repeat right occipital nerve block today to see if this helps with her symptoms. Her pain is in the dist ribution of the right greater and lesser occipital nerve. Procedure Details:: Occipital nerve block right side Informed consent was obtained the risk and benefits of the procedure were explained to the patient. Patient was taken the procedure room. The right occiput was prepped using ChloraPrep. 25-gauge needle was used and into the distribution of the right greater and lesser occipital nerves we injected 5 mL bupivacaine 0.25% and Depo-Medrol 40 mg. The patient tolerated the procedure well with no complications. Plan and Disposition:: We will follow-up with her in 2 weeks. Will reevaluate symptoms at that time.
[2020-09-19 14:23] VITALS: BP 128/89; PULSE 87; RESP 18
[2020-09-19 14:24] VITALS: BP 138/89; PULSE 79; RESP 18; O2SAT 99
[2020-09-19 14:40] VITALS: BP 137/60; PULSE 59; RESP 18; O2SAT 99
== END 2020-09-19 14:40 | disposition home or self-care (01) ==
LOC: SC.PAINP 13:45
PROVIDERS: PCP Family Medicine; Visit Provider Anesthesiology
DX: M54.81 Occipital neuralgia (principal)
CPT/HCPCS: 64405; J1030

== ENCOUNTER → 2020-09-26 10:47 | Outpatient (CLI) | payer MEDICARE, SELFPAY ==
--- NOTE | 2020-09-26 10:52 | MR_ITS ---
PROCEDURE INFORMATION: Exam: MR Cervical Spine Without Contrast Exam date and time: 09/26/2020 10:52 AM Age: 75 years old Clinical indication: Neck pain; Additional info: Cervicalgia. RT sided neck pain [id number]. No injury or trauma. Headache. Prior CT 07-29-20 TECHNIQUE: Imaging protocol: Multiplanar magnetic resonance images of the cervical spine without contrast. COMPARISON: CT CERVICAL SPINE WO CON 07/29/2020 8:10 AM FINDINGS: Vertebrae: The cervical spine alignment is maintained. Spinal cord: The vertebral body heights and marrow signal are normal. There is no cord mass, focal atrophy or abnormal internal cord signal. Discs/Spinal canal/Neural foramina: C2/3: Mild central posterior disc osteophyte complex effacing the anterior thecal sac but not compressing the cord. C3/4: Moderate diffuse posterior disc osteophyte complex effacing the anterior thecal sac and resulting in mild spinal canal stenosis. There is moderate bilateral neural foraminal narrowing secondary to uncovertebral hypertrophy and facet arthropathy. C4/5: Normal. C5/6: Moderate diffuse posterior disc osteophyte complex effacing the anterior thecal sac and resulting in mild spinal canal stenosis. Moderate left neural foraminal narrowing secondary to bulky facet arthropathy and uncovertebral hypertrophy. C6/7: Minimal diffuse posterior disc osteophyte complex slightly effacing the anterior thecal sac but not resulting in significant spinal canal stenosis. [id number] left neural foraminal narrowing secondary to facet arthropathy and uncovertebral hypertrophy. C7/T1: Minimal posterior disc osteophyte complex without significant spinal canal stenosis. The neural foramen are mildly narrowed. Brain: Images through the posterior cranial fossa appear unremarkable. Vasculature: Expected flow voids in the vertebral arteries. Soft tissues: The prevertebral and paraspinous soft tissues are grossly unremarkable. IMPRESSION: Degenerative changes in the cervical spine as detailed above level by level.
== END ==
PROVIDERS: PCP Family Medicine; Visit Provider Neurological Surgery
DX: M54.2 Cervicalgia (principal)
CPT/HCPCS: 72141; 76376

== ENCOUNTER → 2020-10-20 08:37 | Outpatient (POV) | payer MEDICARE, SELFPAY ==
[2020-10-20 08:48] VITALS: BP 137/76; PULSE 69; RESP 18; O2SAT 97; BMI 24.7
--- NOTE | 2020-10-20 12:21 | HMH.PAINSOAP ---
[facility] Pain Management SOAP Note Subjective:: Patient is a 75-year-old white female who presents today for follow-up. The patient was recently treated for occipital neuralgia and did undergo a occipital nerve block. Patient says that her pain worsened following the injection. Patient is having pain in the right side of her neck. After further discussion today, however, the patient is also having difficulty with swallowing as well as edema to the right side of her neck. This is intermittent. She says that the pain is migrating from the neck near the esophagus to the back of the neck and behind the ear . Patient says she is also having great difficulty with swallowing. She says she has pressure in the right side of her neck as well. She has had a thyroidectomy in the past. She was seeing physical therapy who performed traction but noticed increased swelling into the right side of her neck and as result therapy has been postponed until further evaluation. She says this has been ongoing for the last 10 months. She is unable to swallow on the right side. She says that it feels as though food is getting stuck into the right side of her neck when she swallows. She has had a constant sore throat as well. Patient says she has noticed some vision problems intermittently over the last 10 months for which she was having floaters as well. Patient has seen Dr. Martinez in the past. She is also scheduled to see an ENT today. She says she will be undergoing a swallow evaluation today. Patient I discussed that we could continue her Lyrica and place her on a 5-day dose of prednisone, however, I would like the patient to follow-up with her primary care provider and ENT regarding the steroids. Though I will order the medication she has been advised to discuss any further lab work or procedures that may be skewed if she does take steroids at this time. She will consult with her primary care provider and her ENT today. She rates her pain a 7 out of 10. The patient's pain is severe with movement. She says turning her head while driving causes significant pain. She says that the injections have not given her much relief at this point. The patient is not having any numbness or tingling in her upper extremities. Review of Systems General: No recent weight changes, no fever, no sleep disturbances Respiratory: No cough, no shortness of air, no recurring pulmonary infections Cardiovascular/peripheral vascular: No chest pain, no palpitations, no edema, no shortness of breath Gastrointestinal: No new onset incontinence, normal bowel movements reported, difficulty swallowing, frequent sore throat Genitourinary: No new onset incontinence Musculoskeletal: Neck pain with radiation behind ear and head Psychiatric: Normal mood/affect Neurological: [Denies weakness in extremities], [denies balance issues] Objective:: Physical exam General: Alert and oriented x3, no acute distress, pleasant and cooperative, [on room air], generalized edema noted to right side neck Lungs: Respirations even and unlabored, symmetrical chest expansion Eyes: PERRL Musculoskeletal: Flexion and extension of cervical spine somewhat guarded secondary to pain, deep tendon reflexes normal, strength in upper and lower extremities [5/5], normal gait noted Neurological: Speech clear, package winder equal, no gross sensory deficit Assessment:: Degenerative disc disease cervical spine with cervical radiculopathy symptoms, edema right side neck Plan:: Patient would like to follow-up with ENT before proceeding with any further injective therapy in the clinic which I think is a great idea at this point. She does have some generalized edema noted to the right side of her neck today. We will continue the patient's Lyrica 75 mg 1 tablet p.o. twice daily. We will order the patient prednisone 25 mg 1 tablet p.o. twice daily for 5 days, however, she will consult with her primary care provider and with her ENT
== END ==
PROVIDERS: Visit Provider Clinical Nurse Specialist Family Health
DX: M50.10 Cervical disc disorder with radiculopathy, unspecified cervical region (principal); R60.0 Localized edema
CPT/HCPCS: 99212; G0463

== ENCOUNTER → 2020-10-20 10:48 | Outpatient (CLI) | payer MEDICARE, SELFPAY ==
--- NOTE | 2020-10-20 10:53 | FL_ITS ---
PROCEDURE: FL BARIUM SWALLOW MODIFIED CLINICAL INDICATION: PHARYNGEAL DYSPHAGIA COMPARISON: No exams were available for comparison FINDINGS: Patient was observed drinking various consistencies of barium in the lateral position under fluoroscopy. There were a few episodes of in and out penetration occurred with thin liquids and promptly cleared. No evidence of penetration or aspiration on any other consistency tested. Epiglottic tilt and laryngeal elevation were normal. Cricopharyngeus relaxation appear to be within normal limits. There were some degenerative changes noted at C3-4. Please see the speech therapy note for further detail. IMPRESSION: A few episodes of in and out penetration which occurred with thin liquids. Otherwise unremarkable modified barium swallow. See comment above. Dictated by: Armaan Rendon 10/21/2020 08:52 Armaan Rendon in [place] 10/21/2020 08:52
--- NOTE | 2020-10-20 13:21 | HMH.SLMBS2 ---
Speech & Language Evaluation Speech/Language Mod Barium Swallow Start: 10/20/20 12:57 Freq: once Status: Complete Protocol: Document 10/20/20 12:57 MIGUEL (Rec: 10/20/20 13:21 MIGUEL [id number]) General Information General Current Food Consistancy Regular,Thin Liquids Dentition Good Dentition Oxygen Status Room Air Facial Symmetry Symmetrical Patient Orientation Person,Place,Time,Situation Ability to Follow Directions Excellent Communication Ability No Impairment MBS Recommendations Diet Dietary Recommendations Regular,Thin Liquids Treatment/Strategies Treatment Recommendation Oral Motor Exercises, Pharyngeal Resistive Exer, Compens. Strategy Educat. Strategy/Precaution Recommend Sitting Upright (90 deg),Small Bites and Sips,Alternate Liquids/Solids Mod Barium Swallow Impressions Summary and Impressions Oral Phase Impression No Impairment (WFL) Oral Phase Summary Ms. Jackson was given the following consistencies: thins via straw and open cup, pudding, mechanical soft, regular, and pill with thin wash. Ms. Jackson reports difficulty turning head and neck from side to side and up and down preventing her from using compensatory strategies. Pharyngeal Phase Impression Mild Impairment Pharyngeal Phase Summary Ms. Jackson exhibited mild pharyngeal wall residue resulting in the possibility of aspiration. It is recommended that she have speech therapy to address her dysphagia. However, speech therapy needs to wait until lab results are in about her neck. Speech/Language MBS Assessment/Goals/Plan Assessment Date of Evaluation: 10/20/20 Evaluation Type Initial Certification Assessment/Problems dysphagia Does Patient Qualify for Service Yes Qualify/Failure Comment It is recommended that she have speech therapy to address her dysphagia. However, speech therapy needs to wait until lab results are in about her neck. Recommendations PHYSICIAN CERTIFICATION: The specified therapy ser
== END ==
PROVIDERS: PCP Family Medicine; Visit Provider Family Medicine
DX: R13.13 Dysphagia, pharyngeal phase (principal)
CPT/HCPCS: 70371; 92611; 99212; G0463

== ENCOUNTER → 2020-11-03 09:11 | Outpatient (POV) | payer MEDICARE, SELFPAY ==
[2020-11-03 09:34] VITALS: BP 166/63; PULSE 94; RESP 18; O2SAT 98; BMI 32.1
--- NOTE | 2020-11-03 11:22 | HMH.PAINSOAP ---
[facility] Pain Management SOAP Note Subjective:: Patient is a 75-year-old white female who presents today for follow-up. The patient is being treated for right-sided neck pain with radiation behind ear and head. Patient was recently treated with occipital neuralgia with an occipital nerve block. She says her pain worsened following the injection. She does have some swelling noted to her right neck area. She is having difficulty with swallowing as well as pain behind her ear and vision changes. Patient also says that she has sore throat with tingling on the right side of her head. Along with the patient's dysphagia, she says that she is having food that is getting lodged in the right side of her throat. She does say this was also evaluated and being treated by her speech pathologist. She is following up with Dr. Osborne today. At her last visit we discussed an ENT visit. She did see ENT at [facility], however, did not feel that the appointment was appropriate or that she received adequate care. Patient is seeing speech therapy for swallowing. She did undergo swallowing evaluation and was noted to be having some difficulty during the procedure. She says that she has had dysphagia since she began to have her right side neck pain. She is also having to hold the right side of her neck for relief. This pain has been ongoing for more than 6 months. She would like to discuss a further plan of care with Dr. Osborne before any further treatment options in our clinic. She is managed with us with Lyrica. She says she is continuing to take this. Patient says she only followed up today to discuss a further plan of care with us so that we were involved in her care. She rates her pain a 7 out of 10. Review of Systems General: No recent weight changes, no fever, no sleep disturbances Respiratory: No cough, no shortness of air, no recurring pulmonary infections Cardiovascular/peripheral vascular: No chest pain, no palpitations, no edema, no shortness of breath Gastrointestinal: No new onset incontinence, normal bowel movements reported Genitourinary: No new onset incontinence Musculoskeletal: Right side neck pain, vision changes, difficulty swallowing Psychiatric: Normal mood/affect Neurological: [Denies weakness in extremities], [denies balance issues] Objective:: Physical exam General: Alert and oriented x3, no acute distress, pleasant and cooperative, [on room air] Lungs: Respirations even and unlabored, symmetrical chest expansion Eyes: PERRL Musculoskeletal: Flexion and extension of [] cervical spine somewhat guarded secondary to pain, deep tendon reflexes normal, strength in upper and lower extremities [5/5], normal gait noted Neurological: Speech clear, aeronautical drafter equal, no gross sensory deficit Assessment:: Neck pain right side, dysphagia Plan:: Patient I discussed imaging today. I do think she would benefit from some imaging of her neck, however, patient is deferring on any imaging or any treatment options at this time. She wants to discuss a further plan of care with Dr. Osborne before proceeding with treatments or imaging in our clinic. We also discussed, due to her concerns with her ENT appointment here, a referral to another ENT specialist. The patient again would like to defer until she is talked to Dr. Osborne. Patient is refusing any treatments in the clinic at this time. We will see her back after her appointment with Dr. Osborne and discuss a further plan of care if she does want to continue with a referral or treatment options. [facility] History I have reviewed the patient's past medical history: Yes Medical History: Reports:: Hyperlipidemia, Hypertension Denies:: Cancer, Diabetes Mellitus Type 1, Diabetes Mellitus Type 2, Internal Pacemaker, Lung Disease, MRSA, Seizures *Have you ever received a pneumonia vaccine?: Yes *Have you received a flu vaccine this season?: Yes Other Medical History: Reports: Arthritis, Thy
== END ==
PROVIDERS: PCP Family Medicine; Visit Provider Clinical Nurse Specialist Family Health
DX: M54.2 Cervicalgia (principal); R13.10 Dysphagia, unspecified
CPT/HCPCS: 99212; G0463

== ENCOUNTER 2020-12-08 14:00 | Outpatient (RCR) | payer MEDICARE, SELFPAY | END 2020-12-08 15:00 | disposition home or self-care (01) | LOC: PT 14:00 | PROVIDERS: PCP Family Medicine; Visit Provider Neurological Surgery | DX: M54.2 Cervicalgia (principal) | CPT/HCPCS: 97010; 97012; 97014; 97035; 97110; 97140; 97163; 97164; G0283 ==

== ENCOUNTER 2020-12-08 15:00 | Outpatient (RCR) | payer MEDICARE, SELFPAY ==
--- NOTE | 2020-10-29 15:23 | HMH.SLDYSPHA ---
Speech & Language Evaluation Speech/Language Dysphagia Evaluation Start: 10/29/20 15:01 Freq: ONCE Status: Active Protocol: Document 10/29/20 15:01 MIGUEL (Rec: 10/29/20 15:22 MIGUEL [id number]) Dysphagia Assess/Goals/Plan Assessment Date of Evaluation: 10/29/20 Evaluation Type Initial Certification Assessment/Problems Dysphagia Does Patient Qualify for Service Yes Qualify/Failure Comment Patient would benefit from speech therapy to address dysphagia. Recommendations PHYSICIAN CERTIFICATION: The specified therapy services are required, authorized, and reviewed every 30 days. Pt will be seen # times/week 2 for # weeks 8 Diet Recommendations Normal Liquid Type Recommendations Normal/Thin SL Swallow Guidelines Standard Aspiration Prec. Dysphagia Swallow Precautions/Strategies Sitting Upright (90 deg),Small Bites and Sips,Alternate Liquids/Solids Plan Pt/Guardian verbally ack understanding Yes of dx/prognosis/goals G -code Required No STG-Other Comment/Non-Specific Pebbles will complete 10 Lauren (Tongue-Hold) exercises with minimal cues. Pebbles will complete 5 Shaker exercises wiht minimal cues. Pebbles will complete 10 Modified Shaker exercises with minimal cues. Pebbles will complete Falsetto /i/ 30 times, holding it for 5 seconds, with minimal cues. [employer] Goals Diet regular with Liquids Thin Liquids General Information General Current Food Consistancy Regular,Thin Liquids Dentition Good Dentition Oxygen Status Room Air Facial Symmetry Symmetrical Patient Orientation Person,Place,Time,Situation Ability to Follow Directions Excellent Communication Ability No Impairment Dysphagia:Food Presentation Evaluation Dysphagia Evaluation Summary Modified Barium Swallow dated: 10/20/2020 results accepted. Results as follows: General Information General Current Food Consistancy Regular,Thin Liquids Dentition Good Dentition
== END 2020-12-08 15:05 | disposition home or self-care (01) ==
LOC: ST 15:00
PROVIDERS: Visit Provider Family Medicine
DX: R13.13 Dysphagia, pharyngeal phase (principal)
CPT/HCPCS: 92526; 92610

== ENCOUNTER → 2021-02-10 15:49 | Outpatient (CLI) | payer MEDICARE, SELFPAY | PROVIDERS: PCP Family Medicine; Visit Provider Nurse Practitioner | DX: Z20.822 Contact with and (suspected) exposure to COVID-19 (principal) | CPT/HCPCS: C9803; U0003; U0005 ==

== ENCOUNTER → 2021-03-31 09:05 | Outpatient (CLI) | payer MEDICARE, SELFPAY ==
[2021-03-31 10:24] LABS: Blood Urea Nitrogen 25 mg/dl (7-17); Estimated Glomerular Filt Rate 70 ml/min (>60); GFR (African American) 85 ML/MIN (>60)
[2021-03-31 10:29] LABS: Erythrocyte Sedimentation Rate 26 mm/hr (0-30)
== END ==
PROVIDERS: Visit Provider Otolaryngology
DX: M54.2 Cervicalgia (principal); R13.10 Dysphagia, unspecified
CPT/HCPCS: 36415; 82565; 84520; 85651

== ENCOUNTER → 2021-04-03 13:25 | Outpatient (CLI) | payer MEDICARE, SELFPAY ==
--- NOTE | 2021-04-03 13:25 | CT_ITS ---
PROCEDURE: CT SOFT TISSUE NECK W CON CLINICAL HISTORY: right neck pain COMPARISON: No exams were available for comparison TECHNIQUE: Oral Contrast: None IV Contrast: 75 mL Isovue 370 Axial images obtained with sagittal and coronal reformats. All CT scans at the facility use one or more dose reduction, viz: automated exposure control, ma/kV adjustment per patient size (including targeted exams where dose is matched to indication, i.e. head), or iterative reconstruction technique. FINDINGS: The nasopharynx, oropharynx, and hypopharynx have an unremarkable appearance. Unremarkable epiglottis, glottic and subglottic region. No thyroid mass. The parotid glands and submandibular glands are unremarkable. There are few scattered small nodes in the neck. No abnormal fluid collection. No enlarged lymph nodes. There is a retention cyst in the floor of the sphenoid sinus at 1.7 by 0.9 cm. No sinus air-fluid level. The mastoid sinuses are unremarkable in the middle ears are aerated. Lung apices are clear. Degenerative disc disease C3-C4 C5-C6 and C6-C7 IMPRESSION: No mass, adenopathy or abnormal fluid collection. Retention cyst within the sphenoid sinus. Dictated by: Josh Leonardo MD 04/04/2021 09:01 Josh Leonardo MD in [place] 04/04/2021 09:01
== END ==
PROVIDERS: PCP Family Medicine; Visit Provider Otolaryngology
DX: M54.2 Cervicalgia (principal); R13.10 Dysphagia, unspecified
CPT/HCPCS: 70491; Q9967

== ENCOUNTER 2021-06-16 10:00 | Outpatient (RCR) | payer MEDICARE, SELFPAY ==
--- NOTE | 2021-01-28 11:37 | HMH.PTOPEV ---
PT Outpatient Evaluation Rehab PT Outpatient Evaluation Start: 01/28/21 11:14 Freq: Status: Active Protocol: Document 01/28/21 11:14 PHORCLAUDETTE (Rec: 01/28/21 11:37 PHORNE [id number]) Electronically Signed By Baljit Anderson, PT 01/28/21 11:14 Outpatient Therapy Subjective History Subjective History Pt is 75 year old female who presents with c/o of neck pain for ~ 1 year. Pt reports her pain used to be diffuse into her R shoulder but has localized to R neck and R jehovah's witness. She states she frequently has headaches in her R jehovah's witness and occasional R ear aches. Pt reports neck stiffness and aching pain at 3 /10 this morning. Pain is aggravated to 6/10 with movement. Distraction and ibuprofen help manage pain. She reports difficulty with sleeping secondary to pain. Eval completed by Anjali Can , ANGÉLICA. Chief Complaint Pain,Stiff Symptom Type Ache,Dull Symptoms Relieved By Rest/Positioning,OTC Meds Symptoms Aggravated By Physical Activity Prior Functional Limitations None Current Functional Limitations Housework,Driving,Sleeping, Recreation Activity Symptom Description Constant but Variable Level of pain today (0-10) 3 Pain scale - at its best (0-10) 3 Pain scale - at its worst (0-10) 6 Cervical Eval Palpation Cervical Muscles R Cervical Paraspinal,R Suboccipital,R Upper Trapezius Cervical/Thoracic Palpation Findings Tenderness Posture Head/C-Spine Posture Sitting Position Flexed Flexibility Deficits Upper Trapezius Muscle Length (R) Moderate Tightness Passive Joint Mobility Cervical PIVM Dec: R C2/3 R C3/4 R C4/5 R C5/6 AROM Cervical Spine Extension Active Range of 25 Motion (degrees) Cervical Spine Flexion Active Range of 30 Motion (degrees) Cervical Spine Right Lateral Flexion 15 Active Range of Motion (degrees) Cervical Spine Left Lateral Flexion 10 Active Range of Motion (degrees) Cervical Spine Right Rotation Active 45 Range of Motion (degrees) Cervical Spine Left Rotation Active 35 Range of Motion (degrees) Special Test C-Spine Foramina
--- NOTE | 2021-02-23 09:07 | HMH.RHREAS ---
Rehab Reassessment Rehab OP Re-assessment Start: 02/23/21 08:57 Freq: Status: Active Protocol: Document 02/23/21 08:58 ROBERTO (Rec: 02/23/21 09:07 PHORCLAUDETTE [id number]) Electronically Signed By Baljit Anderson, PT 02/23/21 08:58 Rehab Re-assessment Subjective Subjective Pt reports no pain at rest, but 7/10 pain with movement of the neck. She recently returned from a trip to the [place] area and c/o increased pain in her R ear during this trip. Objective Objective Notes Cervical AROM (in deg): Flex= 0-45, Ext= 0-30, R SB= 0-15, L SB= 0-15, R Rot= 0-50, L Rot= 0-45. Palpation tenderness: 3/4 to R mastoid process, 2/4 R UT, R occiput, R SCM sternal insertion. Assessment Progress Assessment Progressing as Expected Assessment Notes Pt AROM is considerable improved in cervical spine, but pain remains increased on R side of neck/head and around the right ear. Differential diagnoss includes neural irritation from muscular tightness, facet arthropathy, and inner ear pathology of unknown type. Patient goals met ST,2,[address] LT,2,3,4 Revised Goals none Plan Plan Continue per initial POC Frequency of Therapy 2 x/wk Duration of therapy 8 wks Time and Billing Re-Eval Time 15 Re-Eval Billing Units 0 PHYSICIAN CERTIFICATION: I certify the specified therapy services for Pebbles Jackson are required, authorized, and reviewed every 30 days.
--- NOTE | 2021-03-24 10:41 | HMH.RHREAS ---
Rehab Reassessment Rehab OP Re-assessment Start: 02/23/21 08:57 Freq: Status: Active Protocol: Document 03/24/21 10:39 ROBERTO (Rec: 03/24/21 10:41 ROBERTO [id number]) Electronically Signed By Baljit Anderson, PT 03/24/21 10:39 Rehab Re-assessment Subjective Subjective Pt reports, I'm having less pain, but it still hurts right at the back of my head on the right side. Objective Objective Notes Cervical AROM (in deg): FLEX= 0-45, EXT= 0-40, R SB= 0-30, L SB= 0-25, R ROT= 0-50, L ROT= 0-45. Pain at worst: 10/16 Assessment Progress Assessment Progressing as Expected Assessment Notes Continues to show improved AROM with less pain overall. Some facet involvement remains due to underlying facet arthropathy throughout cervical spine. Patient goals met ST,2,[address] LT,2,3,4 Revised Goals none Plan Plan Continue per initial POC Frequency of Therapy 2 x/wk Duration of therapy 8 wks Time and Billing Re-Eval Time 15 Re-Eval Billing Units 0 PHYSICIAN CERTIFICATION: I certify the specified therapy services for Pebbles Jackson are required, authorized, and reviewed every 30 days.
--- NOTE | 2021-04-28 10:29 | HMH.RHREAS ---
Rehab Reassessment Rehab OP Re-assessment Start: 02/23/21 08:57 Freq: Status: Active Protocol: Document 04/28/21 10:26 ROBERTO (Rec: 04/28/21 10:29 ROBERTO [id number]) Electronically Signed By Baljit Anderson, PT 04/28/21 10:26 Rehab Re-assessment Subjective Subjective Pt reports she is still able to sleep better, but contineus to have pain in R side of neck and R side headache. Objective Objective Notes Cervical AROM (in deg): FLEX= 0-45, EXT= 0-35, R SB= 0-30, L SB= 0-30, R ROT= 0-45, L ROT= 0-45. Pain currently: 4/10 Pain at worst: 6/10 Assessment Progress Assessment Progressing as Expected Assessment Notes Continues to have increased R side muscle tightness in the neck and upper trap, and continued crepitus with certain movements in the C- spine. Overall pain is decreased, needs to improve ROM. Patient goals met ST,2,[address] LT,2,3,4 Revised Goals none Plan Plan Continue per initial POC Frequency of Therapy 2 x/wk Duration of therapy 8 wks Time and Billing Re-Eval Time 15 Re-Eval Billing Units 0 PHYSICIAN CERTIFICATION: I certify the specified therapy services for Pebbles Jackson are required, authorized, and reviewed every 30 days.
--- NOTE | 2021-06-05 09:28 | HMH.RHREAS ---
Rehab Reassessment Rehab OP Re-assessment Start: 02/23/21 08:57 Freq: Status: Active Protocol: Document 06/05/21 09:24 ROBERTO (Rec: 06/05/21 09:27 PHORNE [id number]) Electronically Signed By Baljti Anderson, PT 06/05/21 09:24 Rehab Re-assessment Subjective Subjective Pt reports she has increased pain and tenderness along the R lateral and anterior neck. Also continued pain to the R side of the head with some tingling intermittently. Objective Objective Notes Cervical AROM (in deg): FLEX= 0-50, EXT= 0-30, R SB= 0-25, L SB= 0-25, R ROT= 0-50, L ROT= 0-45. Pain currently: 7/10 Pain at worst: 8/10 Assessment Progress Assessment Slower Than Expected Assessment Notes Pt has increased pain aver the past 2 weeks and has ceased all activity that was thought to be exacerbating her symptoms (typically quilting). Significant increase in tenderness to palpation along the R SCM again this date that was present 2-3 mos ago and resolved. Significant change in status of symptoms this date. Patient goals met ST,2,[address] LT,2,3,4 Revised Goals none Plan Plan Continue per initial POC Frequency of Therapy 2 x/wk Duration of therapy 8 wks Time and Billing Re-Eval Time 15 Re-Eval Billing Units 1 PHYSICIAN CERTIFICATION: I certify the specified therapy services for Pebbles Jackson are required, authorized, and reviewed every 30 days.
== END 2021-06-16 10:05 | disposition home or self-care (01) ==
LOC: PT 10:00
PROVIDERS: PCP Family Medicine; Visit Provider Family Medicine
DX: M50.90 Cervical disc disorder, unspecified, unspecified cervical region (principal); M53.82 Other specified dorsopathies, cervical region
CPT/HCPCS: 20560; 97010; 97012; 97014; 97033; 97035; 97110; 97140; 97163; 97164; G0283

== ENCOUNTER → 2021-08-24 14:14 | Outpatient (POV) | payer MEDICARE, SELFPAY ==
[2021-08-24 14:38] VITALS: BP 162/78; PULSE 60; RESP 18; TEMP 36.7; O2SAT 99; BMI 32.0
--- NOTE | 2021-08-24 14:53 | HMH.PAINSOAP ---
[facility] Pain Management SOAP Note Subjective:: Patient is a pleasant 76-year-old female who presents today for follow-up. We last saw this patient last year. We were treating her for right occipital neuralgia and DDD Cervical with Cervical Radiculopathy. She has done well with the occipital nerve block and cervical epidural steroid injection. Patient presents today because she has been having worsening pain that is similar to what she had last year. She does have multiple complaints today. First, she says her occipital neuralgia is back and has been hurting in the same area as before. She uses an ice pack to relieve some of this pain. Tender to palpation around the right occipital nerve. Second, she is complaining of pain and numbness that originates from her posterior neck and radiates to her right hand. She states that she has been having issues driving with her right hand because of this pain and numbness. We have tried cervical epidural facet injection in the past that provided significant relief. Third, she is complaining of tightness around her right shoulder. She currently sees PT for this. They have tried dry needling, cupping, manipulation. She is finding relief from this. She wants to know if there is still something that we can do for that. Fourth, she is complaining of pain around her anterior neck. She states that when she swallows or drinks, she feels pain that comes out of my ear. She was also having trouble with pocket filling when she eats. She has seen speech therapy which helped with this. She was referred to ENT who said that there was not anything that they can do for her. Patient has a surgical hx of thyroidectomy. She takes Synthroid everyday for maintenance. For pain, she takes Tylenol and Advil. She also uses an ice pack to help relieve some of her right occipital neuralgia. Rates her pain today as 3 out of 10 today. Review of Systems: General: No recent weight changes, no fever, no sleep disturbances Respiratory: No cough, no shortness of air, no recurring pulmonary infections Cardiovascular/peripheral vascular: No chest pain, no palpitations, no edema, no shortness of breath Gastrointestinal: No new onset incontinence, normal bowel movements reported Genitourinary: No new onset incontinence Musculoskeletal: Neck pain, right occipital pain, shoulder pain Psychiatric: [Normal mood/affect] Neurological: [Denies weakness in extremities], [denies balance issues] Objective:: Physical Exam: General: Alert and oriented x3, no acute distress, pleasant and cooperative, [on room air] Lungs: Respirations even and unlabored, symmetrical chest expansion Eyes: PERRL Musculoskeletal: Flexion and extension of cervical [spine] somewhat guarded secondary to pain, [antalgic gait noted]; patient is tender to palpation around the right occipital nerve. She also has some tenderness around the right upper trapezius. 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 RT sided neck pain [id number]. No injury or trauma. Headache. Prior CT 07-29-20 TECHNIQUE: Imaging protocol: Multiplanar magnetic resonance images of the cervical spine without contrast. COMPARISON: CT CERVICAL SPINE WO CON 07/29/2020 8:10 AM FINDINGS: Vertebrae: The cervical spine alignment is maintained. Spinal cord: The vertebral body heights and marrow signal are normal. There is no cord mass, focal atrophy or abnormal internal cord signal. Discs/Spinal canal/Neural foramina: C2/3: Mild central posterior disc osteophyte complex e
== END ==
PROVIDERS: Visit Provider Student in an Organized Health Care Education/Training Program
DX: M79.2 Neuralgia and neuritis, unspecified (principal); M54.81 Occipital neuralgia; M50.10 Cervical disc disorder with radiculopathy, unspecified cervical region
CPT/HCPCS: 99212; G0463

== ENCOUNTER 2021-08-28 13:49 | Day surgery (SDC) | payer MEDICARE, SELFPAY ==
[2021-08-28 14:02] VITALS: BP 149/65; PULSE 84; RESP 18; TEMP 37; O2SAT 97; BMI 32.0
[2021-08-28 14:22] VITALS: BP 170/52; PULSE 72; RESP 18; O2SAT 96
--- NOTE | 2021-08-28 14:22 | HMH.PMPROC ---
- Procedure Date: 08/28/21 Time: 14:22 Anesthesiologist:: Kvng Gilmore CRNA Complications:: None Pre-procedure Diagnosis:: Right occipital neuralgia Post-procedure Diagnosis:: Same Indications for Procedure:: This patient is a pleasant 76-year-old white female that returns our clinic today for right right occipital nerve block. She has had significant response in regards to her cervical neck pain and chronic headaches with occipital nerve blocks as well as cervical epidural steroid injections in the past. She describes the pain as constant, dull, aching at times. The pain is in the posterior portion of the neck as well as headaches. Procedure Details:: Details of the procedure were explained to the patient. The patient was taken to the procedure room placed in the sitting position. The area over the right occiput was cleansed using alcohol swab. Using a 25-gauge needle 8 cc of 1% lidocaine +0.25% Marcaine and 30 mg of Depo-Medrol was injected in a fanning fashion over the right occipital area. Patient tolerated the procedure without difficulty. There were no complications. Plan and Disposition:: Patient was discharged without incident.
[2021-08-28 14:23] VITALS: BP 170/51; PULSE 79; RESP 18; O2SAT 96
[2021-08-28 14:30] VITALS: BP 118/44; PULSE 71; RESP 18; O2SAT 97
== END 2021-08-28 14:31 | disposition home or self-care (01) ==
LOC: SC.PAINP 13:50
PROVIDERS: PCP Family Medicine; Visit Provider Nurse Anesthetist, Certified Registered
DX: M54.81 Occipital neuralgia (principal); E78.5 Hyperlipidemia, unspecified; I10 Essential (primary) hypertension; M19.90 Unspecified osteoarthritis, unspecified site; E07.9 Disorder of thyroid, unspecified
CPT/HCPCS: 64405; J1040

== ENCOUNTER 2021-09-03 09:00 | Outpatient (RCR) | payer MEDICARE, SELFPAY ==
--- NOTE | 2021-07-28 15:05 | HMH.PTOPEV ---
PT Outpatient Evaluation Rehab PT Outpatient Evaluation Start: 07/28/21 14:48 Freq: Status: Active Protocol: Document 07/28/21 14:48 ROBERTO (Rec: 07/28/21 15:05 PHORCLAUDETTE [id number]) Electronically Signed By Baljit Anderson, PT 07/28/21 14:48 Outpatient Therapy Subjective History Subjective History Pt is 76 yowf who presents with c/o chronic R side neck and head pain x ~ 1 yr overall . She reports pain has decreased previously with therapy, but returns when she is away from therapy. She was recently gone for ~ 1 mo for vacation and pain has increased over that time. She states, I put the ice on it like you said and it helps. I do it about 20 times a day for a few minutes and it lasts for about 5 mins each time. Pt has sharp pain with limited movement in the head and neck and also c/o intermittent pains coming out my right ear . Chief Complaint Pain,Stiff Symptom Type Ache,Sharp Symptoms Relieved By Rest/Positioning,Ice Symptoms Aggravated By Sitting,Physical Activity, Twisting,Lifting Prior Functional Limitations None Current Functional Limitations Lifting,Housework,Recreation Activity Symptom Description Constant but Variable,Activity Dependent Level of pain today (0-10) 7 Pain scale - at its worst (0-10) 10 Cervical Eval Palpation Cervical Muscles R Cervical Paraspinal,R Suboccipital,R SCM,R CT Junction,R Upper Trapezius,R Thoracic Paraspinals Cervical/Thoracic Palpation Findings Tenderness,Muscle Guarding Posture Head/C-Spine Posture Sitting Position Flexed Head/C-Spine Posture Standing Position Flexed Flexibility Deficits Upper Trapezius Muscle Length (L) Mild Tightness,(R) Moderate Tightness Levaetor Scapulae Muscle Length (L) Mild Tightness,(R) Moderate Tightness Sternocleidomastoid Muscle Length (L) Mild Tightness,(R) Moderate Tightness Passive Joint Mobility Cervical PIVM Dec: R C2/3 L C2/3 R C3/4
--- NOTE | 2021-08-25 11:01 | HMH.RHREAS ---
Rehab Reassessment Rehab OP Re-assessment Start: 08/25/21 09:47 Freq: Status: Active Protocol: Document 08/25/21 09:50 SHYAMDakshaCLAUDETTE (Rec: 08/25/21 09:54 PHORCLAUDETTE [id number]) Electronically Signed By Baljit Anderson, PT 08/25/21 09:50 Rehab Re-assessment Subjective Subjective Pt reports pain today is 4/10 in the R side of her neck. Objective Objective Notes Cervical AROM (in deg): Flex= 0-50, Ext= 0-25, R SB= 0-25, L SB= 0-20, R ROT= 0-50, L ROT= 0-50. Assessment Progress Assessment Slower Than Expected Assessment Notes Pt has shown improvements in AROM of cervical spine and strength remains adequate. Pt however continues to suffer intermittent bouts of sharp pain along the R side of the head posterior and superior to the R ear. Patient goals met ST,2,3,4,5 Goals Not Met LT,2,3,4 Revised Goals none Plan Plan Continue per initial POC. Frequency of Therapy 2 x/wk Duration of therapy 4 wks Time and Billing Re-Eval Time 13 Re-Eval Billing Units 1 PHYSICIAN CERTIFICATION: I certify the specified therapy services for Pebbles Jackson are required, authorized, and reviewed every 30 days.
== END 2021-09-03 09:05 | disposition home or self-care (01) ==
LOC: PT 09:00
PROVIDERS: PCP Family Medicine; Visit Provider Family Medicine
DX: M54.81 Occipital neuralgia (principal); M54.12 Radiculopathy, cervical region
CPT/HCPCS: 97010; 97012; 97014; 97110; 97140; 97163; 97164; G0283

== ENCOUNTER 2021-12-08 14:00 | Outpatient (RCR) | payer MEDICARE, SELFPAY | END 2021-12-08 14:05 | disposition home or self-care (01) | LOC: PT 14:00 | PROVIDERS: PCP Family Medicine; Visit Provider Anesthesiology Pain Medicine | DX: M48.02 Spinal stenosis, cervical region (principal); G50.0 Trigeminal neuralgia; M79.10 Myalgia, unspecified site; M47.814 Spondylosis without myelopathy or radiculopathy, thoracic region; M26.609 Unspecified temporomandibular joint disorder, unspecified side; M47.812 Spondylosis without myelopathy or radiculopathy, cervical region; M54.81 Occipital neuralgia | CPT/HCPCS: 97010; 97014; 97110; 97140; 97163; 97164; G0283 ==

== ENCOUNTER 2022-06-08 09:27 | Day surgery (SDC) | payer MEDICARE, SELFPAY ==
[2022-06-04 09:36] VITALS: BMI 30.9
[2022-06-08 09:40] VITALS: BP 150/61; PULSE 69; RESP 18; TEMP 36.8; O2SAT 96
--- NOTE | 2022-06-08 10:13 | EXP.ANES.CKL ---
[facility] Disclaimer: The information contained in this section may have been updated after the patient was seen, as this information can be updated by other users. Medical History (Updated 06/04/22 @ 09:39 by Maine Duff RN) Hx of thyroid irradiation Hyperlipidemia Hypertension Hypothyroid Surgical History (Updated 06/04/22 @ 09:39 by Maine Duff RN) History of appendectomy History of cholecystectomy Hx of bilateral oophorectomy Hx of laparoscopy Family History (Updated 06/04/22 @ 09:34 by Maine Duff RN) Other Family history of acute heart failure Family history of cancer Family history of hypertension Family history of myocardial infarction Social History (Updated 06/04/22 @ 09:35 by Maine Duff RN) Smoking Status: Never smoker alcohol intake: never substance use type: denies use current occupational status: retired Travel in the last 8 weeks: None household members: spouse housing: house lives independently: Yes marital status: education level: college current occupational exposures/hazards: No caffeine: Yes special lawson needs: No agree to transfusion: No do you feel safe at home: Yes victim of physical abuse: No victim of emotional abuse: No victim of sexual abuse: No would you like helpful sources: No [facility] Anesthesia Checklist Patient Identification Patient Identification: Arm Band Structural Data Admitted From: Home Planned Operative Procedure/s: EGD/Colonoscopy Consent for Planned Operative Procedure(s) Verified: Yes Verified Documents: Surgical Consent and History and Physical NPO Status Verified Time NPO: 00:00 Additional verifications Anesthesia Reactions: No Hx Blood Transfusions: No Blood Transfusion Reaction: No Airway Assessment C-Spine Mobility Assessed: Yes TMJ Mobility Assessed: Yes Dentition: Good Dentition Neurological Assessment Level of Consciousness: Awake and Alert Anesthesia Plan Anesthesia Risk discussed: Yes Anesthesia Plan: Verified ASA Class: II Anesthesia Type: MAC
[2022-06-08 10:25] VITALS: O2SAT 96
[2022-06-08 11:07] VITALS: BP 87/50; PULSE 100; RESP 14; TEMP 36.6; O2SAT 96
--- NOTE | 2022-06-08 11:09 | P.PCN_ITS ---
Procedure: Date: 06/08/22 Patient Date of :: 1945 Procedure Performed:: Esophagogastroduodenoscopy with biopsy Colonoscopy Indications:: Anemia Occult blood in stool History of colon polyps Change in bowel habits Performing Provider:: Ganesh Adkins MD Referring Provider:: . Sedation:: Monitored anesthesia care Procedure:: After informed consent was obtained the patient was taken to the endoscopy suite . Sedation ensued after the patient was transferred to the left lateral decubitus position. Pulse, blood pressure, and oxygen saturation were monitored throughout the procedure. The endoscope was advanced beyond the duodenal bulb. Retroflexion within the gastric lumen was accomplished. The gastroscope was carefully removed. Digital rectal exam revealed no significant abnormality. The colonoscope was placed in position. The entire colon was evaluated. The colonoscope was carefully removed and the patient was transferred to recovery in stable condition. Please see findings and specimens below for detail. Findings:: Small sliding hiatal hernia Small adjacent punctate prepyloric ulcerations Tiny duodenal sweep/bulb punctate ulcerations No active bleeding or sign of recent hemorrhage Specimens:: Adjacent prepyloric ulceration biopsy Antral biopsy Recommendations:: Proton pump inhibition Follow-up pathology Likely repeat colonoscopy in 3-5 years Likely repeat esophagogastroduodenoscopy in 6-8 weeks Complications:: No immediate Estimated blood obtained (mL): 1
[2022-06-08 11:17] VITALS: BP 108/56; PULSE 101; RESP 16; O2SAT 96
[2022-06-08 11:27] VITALS: BP 115/65; PULSE 97; RESP 17; O2SAT 96
[2022-06-08 11:40] VITALS: BP 114/71; PULSE 82; RESP 16; O2SAT 98
== END 2022-06-08 12:00 | disposition home or self-care (01) ==
PROVIDERS: PCP Family Medicine; Visit Provider Surgery
PROC: 0DJ08ZZ Inspection of Upper Intestinal Tract, Via Natural or Artificial Opening Endoscopic (ICD-10-PCS; CPT 43235; principal; 2022-06-08 10:30)
DX: D64.9 Anemia, unspecified (principal); R19.5 Other fecal abnormalities; Z86.010 Personal history of colon polyps; K29.50 Unspecified chronic gastritis without bleeding; K44.9 Diaphragmatic hernia without obstruction or gangrene; Z79.899 Other long term (current) drug therapy
CPT/HCPCS: 43239; 45378; 88305

== ENCOUNTER 2022-07-27 09:31 | Day surgery (SDC) | payer MEDICARE, SELFPAY ==
[2022-07-27 09:51] VITALS: BP 139/47; PULSE 64; RESP 20; TEMP 36.9; O2SAT 100; BMI 28.3
--- NOTE | 2022-07-27 10:12 | EXP.ANES.CKL ---
[facility] Disclaimer: The information contained in this section may have been updated after the patient was seen, as this information can be updated by other users. Medical History Hx of thyroid irradiation Hyperlipidemia Hypertension Hypothyroid Surgical History History of appendectomy History of cholecystectomy History of colonoscopy History of esophagogastroduodenoscopy (EGD) Hx of bilateral oophorectomy Hx of laparoscopy Family History Other Family history of acute heart failure Family history of cancer Family history of hypertension Family history of myocardial infarction Social History (Updated 07/27/22 @ 09:47 by Maine Duff RN) Smoking Status: Never smoker alcohol intake: never substance use type: denies use current occupational status: retired Travel in the last 8 weeks: Inside the [place] household members: spouse housing: house lives independently: Yes marital status: education level: college current occupational exposures/hazards: No caffeine: Yes special lawson needs: No agree to transfusion: No do you feel safe at home: Yes victim of physical abuse: No victim of emotional abuse: No victim of sexual abuse: No would you like helpful sources: No [facility] Anesthesia Checklist Patient Identification Patient Identification: Arm Band Structural Data Admitted From: Home Planned Operative Procedure/s: EGD Consent for Planned Operative Procedure(s) Verified: Yes Verified Documents: Surgical Consent and History and Physical NPO Status Verified Time NPO: 00:00 Additional verifications Anesthesia Reactions: No Hx Blood Transfusions: No Blood Transfusion Reaction: No Airway Assessment C-Spine Mobility Assessed: Yes TMJ Mobility Assessed: Yes Dentition: Good Dentition Neurological Assessment Level of Consciousness: Awake and Alert Anesthesia Plan Anesthesia Risk discussed: Yes Anesthesia Plan: Verified ASA Class: II Anesthesia Type: MAC
--- NOTE | 2022-07-27 10:16 | HMH.SCOPE ---
Procedure: Date: 07/27/22 Patient Date of :: 1945 Procedure Performed:: Esophagogastroduodenoscopy with biopsy Indications:: Prepyloric ulceration and duodenal ulceration Helicobacter pylori infection Performing Provider:: Ganesh Adkins MD Referring Provider:: . Sedation:: Monitored anesthesia care Procedure:: After informed consent was obtained the patient was taken to the endoscopy suite. Sedation ensued after the patient was transferred to the left lateral decubitus position. Pulse, blood pressure, and oxygen saturation were monitored throughout the procedure. The endoscope was advanced beyond the duodenal bulb. Retroflexion within the gastric lumen was accomplished. The gastroscope was carefully removed and the patient was transferred to recovery in stable condition. Please see findings and specimens below for detail. Findings:: Mild patchy gastritis Ulcerations healed Small lobulated polyp at GE junction Specimens:: Biopsy of small lobulated polyp at gastroesophageal junction Antral biopsy Recommendations:: Follow-up pathology Continue proton pump inhibition Stool for H. pylori antigen to be ordered at return appointment Complications:: No immediate Estimated blood obtained (mL): 1
[2022-07-27 10:17] VITALS: O2SAT 100
[2022-07-27 10:35] VITALS: BP 97/50; PULSE 69; RESP 14; TEMP 36.5; O2SAT 91
[2022-07-27 10:45] VITALS: BP 108/60; PULSE 67; RESP 16; O2SAT 93
[2022-07-27 10:55] VITALS: BP 114/72; PULSE 62; RESP 17; O2SAT 96
[2022-07-27 11:05] VITALS: BP 132/74; PULSE 60; RESP 17; TEMP 36.6; O2SAT 99
== END 2022-07-27 11:10 | disposition home or self-care (01) ==
PROVIDERS: PCP Family Medicine; Visit Provider Surgery
PROC: 0DJ08ZZ Inspection of Upper Intestinal Tract, Via Natural or Artificial Opening Endoscopic (ICD-10-PCS; CPT 43235; principal; 2022-07-27 10:30)
DX: K26.9 Duodenal ulcer, unspecified as acute or chronic, without hemorrhage or perforation (principal); K25.9 Gastric ulcer, unspecified as acute or chronic, without hemorrhage or perforation; A04.8 Other specified bacterial intestinal infections; K22.82 Esophagogastric junction polyp; Z79.899 Other long term (current) drug therapy
CPT/HCPCS: 43239; 88305

== ENCOUNTER → 2022-08-11 13:44 | Outpatient (CLI) | payer MEDICARE, SELFPAY ==
[2022-08-14 06:11] LABS: H. pylori Stool Ag, EIA Negative (Negative)
== END ==
PROVIDERS: PCP Family Medicine; Visit Provider Surgery
DX: K27.7 Chronic peptic ulcer, site unspecified, without hemorrhage or perforation (principal); B96.81 Helicobacter pylori [H. pylori] as the cause of diseases classified elsewhere
CPT/HCPCS: 87338

== ENCOUNTER → 2023-02-16 12:56 | Outpatient (CLI) | payer MEDICARE, SELFPAY ==
--- NOTE | 2023-02-16 13:09 | MR_ITS ---
APPROVED REPORT [employer] Tender: CLINICAL INDICATION Volunteer, no symptoms TECHNIQUE Image Acquisition: Cardiac magnetic resonance (CMR) was performed on Siemens MRI 1.5T scanner. A set of three-plane, low-resolution, large [id number] localizers were initially acquired. Then axial, coronal, and sagittal TrueFISP, and axial HASTE images were obtained. These were followed by gated TrueFISP breathold cinematic sequences obtained in the short axis with 8 mm slices and 2 mm gaps, 2-chamber (vertical long axis), 3-chamber, 4-chamber (horizontal long axis). A bolus of contrast was injected intravenously with first-pass sequences obtained in the short axis and four-chamber planes. After approximately 10 minutes, a TI prop worker sequence was performed to determine the optimal TI time. Using the optimized TI time, delayed contrast enhancement segmented inversion???recovery TurboFLASH sequences were obtained in the short axis, 2-chamber, 3-chamber, and 4-chamber projections. 2D-velocity phase mapping was performed. Functional parameters were calculated by offline analysis on an independent workstation ([employer], [employer]). Contrast: ProHance??? (Gadoteridol) FINDINGS See below for the full quantitative analysis report. MORPHOLOGY AND FUNCTION Left ventricle: The left ventricle is normal in size. The indexed left ventricular end-diastolic volume (LVEDVi) is 81.1 ml/m2 (reference range 57-105 ml/m2 in males, 56-96 ml/m2 in females). Normal left ventricular systolic function is present. There is normal LV wall thickness. There are no regional wall motion abnormalities noted. LVEF is calculated at 57.0% (reference range 57-77%). Right ventricle: The right ventricle is normal in size. The indexed right ventricular end-diastolic volume (RVEDVi) is 75.0 ml/m2 (reference range 61-121 ml/m2 in males, 48-112 ml/m2 in females). Mild reduction in right ventricular systolic function is present. RVEF is calculated at 41.4 % (reference range 52-72% in males, 51-71% in females). Atria: The left atrium is mildly dilated. The maximum indexed left atrial volume is 54.7 ml/m2 (reference range 26-52 ml/m2 in males, 27-53 ml/m2 in females). The right atrium cavity is normal in size. The maximum indexed right atrial volume is 13.1 ml/m2 (reference range 18-90 ml/m2). Aorta: The diameter of the aortic annulus is normal, measuring 24.6 mm (coronal view reference range 21-30 mm in males, 19-27 mm in females). The diameter of the aortic sinus is normal, measuring 33.9 mm (coronal view reference range 25-42 mm in males, 24-36 mm in females). The diameter of the sinotubular junction is normal, measuring 25.3 mm (coronal view reference range 18-32 mm in males, 18-28 mm in females). The diameter of the ascending and descending thoracic aorta are normal. Main pulmonary artery: The main pulmonary artery diameter is normal. Pericardium: The pericardial thickness is normal. The pericardial thickness measures 1.4 cm. There is no pericardial effusion. VALVES The aortic valve leaflets appear to have restricted motion in systole, suggestive of aortic stenosis. The aortic valve aea is approximately 1.7 cm2. There is also transaortic signal void during diastole, consistent with aortic regurgitation. The mitral valve leaflets appear to have restricted motion, suggestive of possible mitral stenosis. There is also transmitral signal void during systole, consistent with mitral regurgitation. Systolic anterior motion of the mitral valve is not visualized. TISSUE CHARACTERIZATION Resting Perfusion: At rest, there is delayed blood flow to the inferior wall, suggestive of resting ischemia of the inferior LV wall. Myocardial Fibrosis and/or edema: Mid-myocardial late gadolinium enh
== END ==
PROVIDERS: PCP Family Medicine
DX: R07.89 Other chest pain (principal)

== ENCOUNTER 2023-03-13 16:24 | Emergency (ER) | payer MEDICARE, SELFPAY ==
[2023-03-13] VITALS (8 sets, daily range): BP systolic 124–175; BP diastolic 43–122; PULSE 41–67; RESP 16–20; TEMP 36.5–36.7; O2SAT 93–99; BMI 29.0
--- NOTE | 2023-03-13 16:29 | HMH.EDGENADL ---
Discharge Plan Disposition Patient Disposition: Home, Self-Care Condition: Good Prescriptions Prescriptions: New meclizine 25 mg tablet 25 mg PO DAILY PRN (Reason: motion sickness) Qty: 20 0RF No Action losartan 100 mg tablet 100 mg PO DAILY hydrochlorothiazide 25 mg tablet 25 mg PO DAILY esomeprazole magnesium [Nexium 24HR] 20 mg capsule,delayed release(DR/EC) 20 mg PO DAILY atorvastatin 20 MG tablet 20 mg PO HS levothyroxine 100 mcg tablet 75 mcg PO DAILY aspirin 81 mg Tablet,Delayed Release (Dr/Ec) 81 mg PO DAILY Referrals Follow up/Referrals: Artem Osborne MD [Primary Care Provider] - See instructions Activity Restrictions/Add. Instructions Additional Instructions/Restrictions: Please return to the emergency department if you experience any new or worsening symptoms. Clinical Impressions Clinical Impression: Vertigo, Bradycardia Instructions Patient Instructions: DI for Vertigo, DI for Diarrhea and Traveler's Diarrhea -- Adult Discharge ED Provider: Esau Gonzalez General Adult HPI General Chief complaint: Nausea/Vomiting/Diarrhea Stated complaint: vomit/diarrhea, dizzy Time Seen by Provider: 03/13/23 16:27 History of Present Illness HPI narrative: The patient presents with a chief complaint of vomiting, diarrhea, and dizziness for the past 24 hours. 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 The dizziness is described as a spinning sensation, accompanied by a headache located throughout the front of the head. The patient denies any previous episodes of similar symptoms. The patient reports abdominal pain, primarily in the lower region, and has been vomiting green bile. They have not eaten or drunk anything in the past 24 hours due to a lack of appetite and thirst. The patient also mentions feeling weak and numb all over their body. Upon palpation, the patient's abdomen is tender, but they deny any pain during bowel movements. The patient experienced a clammy episode yesterday afternoon but did not measure their temperature. They deny noticing any blood in their vomit or stool and have not experienced shortness of breath. The patient has a recent history of a heart MRI, which revealed two valve leakages and two blockages. They are scheduled for a stress test next week. The patient takes medications but is unsure of their purpose. 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 Related Data Home Medications Medication Instructions Recorded Confirmed atorvastatin 20 mg tablet 20 mg PO HS Cholesterol 02/27/18 03/13/23 hydrochlorothiazide 25 mg tablet 25 mg PO DAILY Fluid 04/29/21 03/13/23 losartan 100 mg tablet 100 mg PO DAILY BLOOD PRESSURE 04/29/21 03/13/23 aspirin 81 mg tablet,delayed 81 mg PO DAILY thinner 06/04/22 03/13/23 release esomeprazole magnesium 20 mg 20 mg PO DAILY 08/19/22 03/13/23 capsule,delayed release (Nexium 24HR) levothyroxine 100 mcg tablet 75 mcg PO DAILY thyriod 03/08/23 03/13/23 Previous Rx's Medication Instructions Recorded meclizine 25 mg tablet 25 mg PO DAILY PRN motion sickness 03/13/23 #20 tabs Allergies Allergy/AdvReac Type Severity Reaction Status Date / Time No Known Allergies Allergy Verified 03/13/23 16:45 [facility] Disclaimer: The information contained in this section may have been updated after the patient was seen, as this information can be updated by other users. Medical History (Updated 03/13/23 @ 20:01 by Esau Gonzalez MD) Abnormal MRI Abnormal myocardial perfusion study Aortic regurgitation Aortic stenosis Coronary artery calcification seen on CT scan Coronary artery disease Hx of thyroid irradiation Hyperlipidemia Hypertension Hypothyroid Mitral regurgitation Mitral stenosis Myocardial ischemia of inferior surface of left ventricle Surgical History (Reviewed 03/08/23 @ 13:38 by Shazia Díaz
--- NOTE | 2023-03-13 16:56 | CT_ITS ---
PROCEDURE INFORMATION: Exam: CTA Neck With Contrast Exam date and time: 03/13/2023 6:32 PM Age: 77 years old Clinical indication: Vertigo; Additional info: ERICKSON, vertigo TECHNIQUE: Imaging protocol: Computed tomographic angiography of the neck with contrast. Exam focused on the cervical segments of the vasculature. 3D rendering (Not supervised by radiologist): MIP and/or 3D reconstructed images were created by the technologist. Radiation optimization: All CT scans at this facility use at least one of these dose optimization techniques: automated exposure control; mA and/or kV adjustment per patient size (includes targeted exams where dose is matched to clinical indication); or iterative reconstruction. Contrast material: ISOVUE 370; Contrast volume: 100 ml; Contrast route: INTRAVENOUS (IV); REPORTING DATA: Count of CT and Cardiac NM exams in prior 12 months: This patient has received 0 known CTs and 0 known cardiac nuclear medicine studies in the 12 months prior to the current study. COMPARISON: CT SOFT TISSUE NECK W CON 04/03/2021 1:38 PM FINDINGS: Right common carotid artery: No stenosis. No dissection or occlusion. Right internal carotid artery: No stenosis of the extracranial segment. No dissection or occlusion. Right external carotid artery: No occlusion or stenosis of the origin. Left common carotid artery: No stenosis. No dissection or occlusion. Left internal carotid artery: Mild atherosclerotic changes contribute to less than 50% stenosis by NASCET criteria at the origin of left internal carotid artery. Left external carotid artery: No occlusion or stenosis of the origin. Right vertebral artery: No stenosis. No dissection or occlusion. Left vertebral artery: No stenosis. No dissection or occlusion. Soft tissues: Normal. No significant soft tissue swelling. Bones/joints: No acute fracture. IMPRESSION: 1. Mild atherosclerotic changes contribute to less than 50% stenosis by NASCET criteria at the origin of left internal carotid artery. 2. No occlusion or dissection along the major cervical arteries. REFERENCES: NASCET CRITERIA. The degree of stenosis in the cervical segment of the internal carotid artery is based on NASCET criteria. Normal is no stenosis. Mild is less than 50% stenosis. Moderate is 50-69% stenosis. Severe is 70% to 99% stenosis. Total occlusion is no detectable patent lumen.
--- NOTE | 2023-03-13 16:56 | CT_ITS ---
PROCEDURE INFORMATION: Exam: CT Abdomen And Pelvis With Contrast Exam date and time: 03/13/2023 6:38 PM Age: 77 years old Clinical indication: Abdominal pain; Generalized; Additional info: Suprapubic abdominal pain TECHNIQUE: Imaging protocol: Computed tomography of the abdomen and pelvis with contrast. Radiation optimization: All CT scans at this facility use at least one of these dose optimization techniques: automated exposure control; mA and/or kV adjustment per patient size (includes targeted exams where dose is matched to clinical indication); or iterative reconstruction. Contrast material: ISOVUE 370; Contrast volume: 75 ml; Contrast route: IV; REPORTING DATA: Count of CT and Cardiac NM exams in prior 12 months: This patient has received 0 known CTs and 0 known cardiac nuclear medicine studies in the 12 months prior to the current study. COMPARISON: ABDW CT abdomen w con 06/21/2018 9:48 AM FINDINGS: Lungs: Punctate left lower lobe granuloma Liver: Subcentimeter hypodensity in the right hepatic lobe is too small to accurately characterize. Gallbladder and bile ducts: There has been a cholecystectomy. Pancreas: No peripancreatic fluid stranding. No main pancreatic ductal dilation. Spleen: No splenomegaly. Adrenal glands: The adrenal glands are normal. Kidneys and ureters: Scattered subcentimeter hypodensities in both kidneys are too small to accurately characterize. There is a simple cyst in the left kidney. Nephrograms are symmetric. No nephrolithiasis or hydroureteronephrosis on either side. No solid lesions Stomach and bowel: No bowel wall thickening or distention. Duodenal diverticulum is incidentally noted. Appendix: A normal appendix is not well visualized. However, no evidence of inflammatory changes in the right lower quadrant to suggest acute appendicitis. Intraperitoneal space: There is no evidence of free intraperitoneal or pelvic fluid. Vasculature: The aorta demonstrates mild atherosclerotic calcification. Lymph nodes: No lymphadenopathy. Urinary bladder: Unremarkable as visualized. Reproductive: Unremarkable as visualized. Bones/joints: Multilevel degenerative changes of the included spine. No acute osseous abnormality. Soft tissues: Unremarkable. IMPRESSION: No acute abnormality in the abdomen or pelvis COMMENTS: Consistent with the [employer]'s Incidental Findings Committee white paper (J Am Jael Radiol 2018): Any incidental renal lesion less than 1 cm or classified as too small to characterize, or any incidental cystic renal lesion characterized as simple-appearing, is likely benign. No follow-up imaging is recommended for these lesions per consensus recommendations based on imaging criteria.
--- NOTE | 2023-03-13 16:56 | CT_ITS ---
PROCEDURE INFORMATION: Exam: CTA Head With Contrast, Arteriography Exam date and time: 03/13/2023 6:32 PM Age: 77 years old Clinical indication: Vertigo; Additional info: ERICKSON, vertigo TECHNIQUE: Imaging protocol: Computed tomographic angiography of the head with contrast. Exam focused on the arteries. 3D rendering (Not supervised by radiologist): MIP and/or 3D reconstructed images were created by the technologist. Radiation optimization: All CT scans at this facility use at least one of these dose optimization techniques: automated exposure control; mA and/or kV adjustment per patient size (includes targeted exams where dose is matched to clinical indication); or iterative reconstruction. Contrast material: ISOVUE 370; Contrast volume: 100 ml; Contrast route: INTRAVENOUS (IV); REPORTING DATA: Count of CT and Cardiac NM exams in prior 12 months: This patient has received 0 known CTs and 0 known cardiac nuclear medicine studies in the 12 months prior to the current study. COMPARISON: CT HEAD/BRAIN WO CON 03/13/2023 6:29 PM FINDINGS: ANTERIOR CIRCULATION: Right internal carotid artery: Intracranial segment is patent with no significant stenosis. No aneurysm. Right middle cerebral artery: No occlusion or significant stenosis. No aneurysm. Right anterior cerebral artery: No occlusion or significant stenosis. No aneurysm. Left internal carotid artery: Intracranial segment is patent with no significant stenosis. No aneurysm. Left middle cerebral artery: No occlusion or significant stenosis. No aneurysm. Left anterior cerebral artery: No occlusion or significant stenosis. No aneurysm. POSTERIOR CIRCULATION: Right vertebral artery: No occlusion or significant stenosis. No aneurysm. Left vertebral artery: No occlusion or significant stenosis. No aneurysm. Basilar artery: No occlusion or significant stenosis. No aneurysm. Right posterior cerebral artery: No occlusion or significant stenosis. No aneurysm. Left posterior cerebral artery: No occlusion or significant stenosis. No aneurysm. Brain: No definite mass, mass effect, or midline shift. Cerebral ventricles: No ventriculomegaly. Paranasal sinuses: Scattered mucosal thickening throughout the paranasal sinuses. Bones/joints: Unremarkable. No acute fracture. Soft tissues: Unremarkable. IMPRESSION: No large vessel occlusion
--- NOTE | 2023-03-13 16:56 | CT_ITS ---
PROCEDURE INFORMATION: Exam: CT Head Without Contrast Exam date and time: 03/13/2023 6:29 PM Age: 77 years old Clinical indication: Other: Vertigo; Additional info: ERICKSON, vertigo TECHNIQUE: Imaging protocol: Computed tomography of the head without contrast. Radiation optimization: All CT scans at this facility use at least one of these dose optimization techniques: automated exposure control; mA and/or kV adjustment per patient size (includes targeted exams where dose is matched to clinical indication); or iterative reconstruction. REPORTING DATA: Count of CT and Cardiac NM exams in prior 12 months: This patient has received 0 known CTs and 0 known cardiac nuclear medicine studies in the 12 months prior to the current study. COMPARISON: CT SOFT TISSUE NECK W CON 04/03/2021 1:38 PM FINDINGS: Brain: There is no evidence of acute intracranial hemorrhage, extra-axial collection or locoregional mass effect. There are scattered hypodensities in the periventricular and subcortical white matter. The appearance is nonspecific, but most likely represents chronic small vessel disease in a person of this age. Chronic lacunar infarct in the left caudate nucleus noted. Cerebral ventricles: The ventricles, sulci and cisterns are normal in size and configuration for patient's age. No hydrocephalus or midline structure shift Pituitary gland and sella: Sellar/parasellar structures, craniocervical junction and orbits are unremarkable Paranasal sinuses: Scattered mucosal thickening throughout the paranasal sinuses. Mastoid air cells: Visualized mastoid air cells are well aerated. Bones/joints: No calvarial fracture Soft tissues: Unremarkable. IMPRESSION: 1. No acute intracranial abnormality. If focal neurological symptoms persist brain MRI can be obtained for better evaluation 2. Chronic lacunar infarct in the left caudate nucleus.
--- NOTE | 2023-03-13 16:57 | XR_ITS ---
PROCEDURE INFORMATION: Exam: XR Chest Exam date and time: 03/13/2023 5:59 PM Age: 77 years old Clinical indication: Other: Nausea, vomiting, diarrhea; Additional info: N/v/diarrhea, cardiac HX TECHNIQUE: Imaging protocol: Radiologic exam of the chest. Views: 1 view. COMPARISON: CHESTW CT chest w con 06/21/2018 9:48 AM FINDINGS: Lungs: No evidence of pneumonia or interstitial edema. Pleural spaces: Unremarkable. No pleural effusion. No pneumothorax. Heart/Mediastinum: Cardiomegaly noted. Bones/joints: Unremarkable. IMPRESSION: No evidence of pneumonia or interstitial edema.
--- NOTE | 2023-03-13 16:59 | ECG_ITS ---
APPROVED REPORT Exam: Resting ECG HR:47 bpm ECG Measurements Heart Rate 47 AXES UT 173 P 1 QRSd 90 QRS 1 QT 481 T 3 QTc 444 Conclusion SINUS BRADYCARDIA BORDERLINE ECG UNCONFIRMED REPORT Electronically signed by : Teddy Villeda MD 03/14/2023 17:49:49
[2023-03-13 17:09] LABS: Basophils % 0.4 % (0.1-2.0); Eosinophils # 0.2 K/mm3 (0.0-0.4); Eosinophils % 2.7 % (0.1-12.0); Hematocrit 40.2 % (37.0-47.0); Hemoglobin 13.8 g/dL (12.2-16.2); Lymphocytes % 24.4 % (10-50); Mean Corpuscular HGB Conc 34.2 g/dL (31.8-35.4); Mean Corpuscular Hemoglobin 29.5 pg (27.0-31.2); Mean Corpuscular Volume 86.4 fl (81-99); Mean Platelet Volume 7.8 fl (7.4-10.4); Monocytes # 0.4 K/mm3 (0.1-1.0); Monocytes % 4.7 % (1.7-9.3); Neutrophils # 5.6 K/mm3 (1.8-7.8); Neutrophils % 67.8 % (37.0-80.0); Platelet Count 255 K/mm3 (142-424); Red Blood Count 4.66 M/mm3 (4.20-5.40); Red Cell Distribution Width 15.7 % (11.5-17.5); White Blood Count 8.3 K/mm3 (4.8-10.8)
[2023-03-13 17:10] LABS: Chloride 102 mmol/L (98-107); Sodium 138 mmol/L (136-145)
[2023-03-13 17:12] LABS: Blood Urea Nitrogen 21 mg/dl (7-17); Creatinine Clearance Estimated 54 mL/min (50-200); Estimated Glomerular Filt Rate 70 ml/min (>60); GFR (African American) 84 ML/MIN (>60); Lipase 100 U/L (23-300)
[2023-03-13 17:13] LABS: Alanine Aminotransferase 19 U/L (12-78); Albumin Level 4.5 g/dl (3.5-5.0); Albumin/Globulin Ratio 1.3 (1.1-1.8); Alkaline Phosphatase 171 U/L (38-126); Aspartate Amino Transferase 36 U/L (14-36); Bilirubin,Total 1.3 mg/dl (0.2-1.3); Calcium 8.9 mg/dl (8.4-10.2); Carbon Dioxide 27 mmol/L (22.0-30.0); Globulin 3.5 g/dL (1.3-3.2); Glucose 104 mg/dl (74-100); Magnesium 1.8 mg/dl (1.6-2.3); Phosphorous 4.5 mg/dl (2.5-4.5)
--- NOTE | 2023-03-13 17:19 | PC.NURSE ---
Pt gone to RAD via wheelchair
[2023-03-13 17:29] LABS: Troponin I < 0.01 ng/ml (0.00-0.034)
[2023-03-13 17:30] LABS: Free T4 (Free Thyroxine) 1.41 ng/dl (0.78-2.19)
--- NOTE | 2023-03-13 17:48 | PC.NURSE ---
Pt returned from RAD
--- NOTE | 2023-03-13 18:07 | PC.NURSE ---
Rounded on pt. No needs or complaints voiced. Call light within reach.
--- NOTE | 2023-03-13 18:49 | PC.NURSE ---
Dr. Gonzalez at BS to update pt on POC
[2023-03-13 19:35] LABS: Troponin I < 0.01 ng/ml (0.00-0.034)
== END 2023-03-13 20:12 | disposition home or self-care (01) ==
PROVIDERS: Emergency Provider Emergency Medicine; PCP Family Medicine
DX: R42 Dizziness and giddiness (principal); R00.1 Bradycardia, unspecified; R10.30 Lower abdominal pain, unspecified; R11.10 Vomiting, unspecified; R19.7 Diarrhea, unspecified; I10 Essential (primary) hypertension; E03.9 Hypothyroidism, unspecified; I25.10 Atherosclerotic heart disease of native coronary artery without angina pectoris; E78.5 Hyperlipidemia, unspecified
CPT/HCPCS: 36415; 70450; 70496; 70498; 71045; 74177; 80053; 83690; 83735; 84100; 84439; 84443; 84484; 85025; 93005; 96360; 96361; 96374; 99285; J2405; Q9967

== ENCOUNTER → 2023-03-22 06:44 | Outpatient (CLI) | payer MEDICARE, SELFPAY ==
--- NOTE | 2023-03-22 06:44 | CA_ITS ---
APPROVED REPORT Exam: Pharmacologic Technologist: Archana Camarena Ht: 5 ft 2 in Wt: 160 lbs BSA: 1.74 m2 HR: 49 bpm BP: 174/58 mmHg Rhythm: NSR Indications: Valvular disorder, abnormal imaging MRI Medical History Medications: Levothyroxine,,,,, Aspirin,,,,, Losartan,,,,, Atorvastatin,,,,, HCTZ,,,,, Nexium,,,,, Stress Test Details Test: LEXISCAN HR Resting HR: 50 bpm Max Heart Rate (APMHR): 144 bpm Max HR Achieved: 78 bpm Target HR (85% APMHR): 122 bpm % of APMHR: 54 Recovery HR: 68 bpm BP Resting BP: 174.0/58.0 mmHg Max BP: 195.0/68.0 mmHg Recovery BP: 138.0/63.0 mmHg ECG Resting ECG: Sinus bradycardia Stress ECG: No ST changes Arrhythmia: PACs Clinical Exercise duration: 04:02 min Highest Stage Achieved: Exercise capacity: 1.0 METs Stress ECG Conclusion Symptoms: Dyspnea, Headache Arrhythmias/Ectopy: PACs ST-T Changes: No significant ST changes Conclusion: Unremarkable Lexiscan stress test. Myoview images are reported separately. Test Summary REST . . . . . . . Resting REST 09:32 . . 50 . 174/ 58 . . Stage 1 . . . . . . . Myoview Injected Stage 1 01:00 . . 69 . . . . Stage 2 01:00 . . 74 . 137/ 56 . . Stage 3 01:00 . . 66 . . . . Stage 4 01:00 . . 59 . 145/ 64 . . Stage 4 01:02 . . 58 . 145/ 64 . Stop exercise at 04:02 RECOVERY 01:00 . . 70 . 147/ 57 . . RECOVERY 02:00 . . 70 . 143/ 57 . . RECOVERY 03:00 . . 62 . 138/ 63 . . RECOVERY 03:18 . . 64 . 138/ 63 . . Electronically signed by : Neema Cole MD 03/29/2023 10:43:31
--- NOTE | 2023-03-22 06:44 | CA_ITS ---
APPROVED REPORT EXAM: Comprehensive 2D, Doppler, and color-flow Echocardiogram Improvement Lead: Tatianna Alan, ANJELICA, RVS Ht: 5 ft 2 in Wt: 160lbs BSA: 1.74 BP: 147/79 mmHg Indications: murmur, valvular disease per cardiac MRI, CAD, HTN, HLD 2D Dimensions IVSd 0.97 cm LVEF (Visual) 56.40 % PWd 1.04 cm LA Volume 107.60 mL LVDd 5.15 cm LA Volume Index 60.40 mL/m2 (M/F) 16-34 LVDs 3.62 cm Aortic Root 2.97 cm Left Atrium 4.46 cm LVOT 2.09 cm (M/F) 1.5-2.5 M-Mode Dimensions RVDd 2.76 cm (0.9-2.6) LA Diam 5.12 cm (1.9-4.0) LVDd 5.56 cm (3.5-5.7) Ao Diam 3.40 cm (2.0-3.7) LVDs 3.65 cm (3.5-5.7) IVSd 1.06 cm (0.6-1.1) PWd 1.02 cm (0.6-1.1) EF (Teich) 62.80% EPSs 1.66 cm FS 34.40% EDV (Teich) 151.20 mL TAPSE 1.91 (<1.7) ESV (Teich) 56.30 mL LV Diastology E Decel Time 363.00 (160-240 msec) E/A Ratio 0.83 MED E' 4.00 (< 7 cm/sec) MED A' 5.30 cm/s E'/MED E' Ratio 31.80 (>14) LAT E' 7.60 (<10 cm/sec) LAT A' 6.10 cm/s E/LAT E' Ratio 16.74 (>14) Aortic Valve LVOT Max 127.00 (70-110 cm/s) LVOT VTI 30.27 cm AoV Peak Deep. 163.00 (50-130 cm/s) AI PHT 741.00 ms AO Peak GR. 10.70 mmHg AO Mean GR. 5.30 (<5 mmHg) AO VTI 37.45 (18-25 cm) JESSICA (VTI) 2.77 (2.5-4.5 cm2) Mitral Valve MV A Velocity 153.00 (40-130 cm/s) E/A Ratio 0.83 MV Decel. Time 363.00 (160-240 ms) MV Mean Gr. 3.60 (<2mmHg) Pulmonary Valve RI End VMAX 150.00 cm/s Tricuspid Valve TR P. Velocity 279.00 cm/s RAP Estimate 10.00 mmHg RVSP 41.20 mmHg Left Ventricle The left ventricle is normal size. The left ventricular systolic function is normal. The left ventricular ejection fraction is within the normal range. There is increased LV wall thickness. There is normal LV segmental wall motion. Grade 2 diastolic dysfunction is present. LVEF is 60%. Right Ventricle The right ventricle is normal size. The right ventricular systolic function is normal. Atria Left atrium is severely dilated. The right atrium size is normal. Aortic Valve The aortic valve is moderately thickened. Mild to moderate aortic stenosis. AV area by 2D planimetry is 1.4 cm2. Peak velocity 1.7 m/s. Mean AV gradient is 5 mmHg. Max AV gradient is 10 mmHg. SVi=59 mL/m2. The true AV gradients may be underestimated in this study. Mild aortic regurgitation. PHT is 740 ms. Mitral Valve The mitral valve is mildly thickened. No evidence of mitral valve stenosis. Moderate mitral regurgitation. Tricuspid Valve The tricuspid valve leaflets are thin and pliable. Mild tricuspid regurgitation. RVSP is 30-35 mmHg. Pulmonic Valve The pulmonary valve is normal in structure. Mild pulmonic regurgitation. Great Vessels The aortic root is normal in size. The ascending aorta is normal in size. IVC is normal in size and collapses >50% with inspiration. Pericardium There is no pericardial effusion. Other Information Study Quality: Fair Conclusion Normal biventricular systolic function. Grade 2 diastolic dysfunction. Mild to moderate (AV area by 2D planimetry is 1.4 cm2. Peak velocity 1.7 m/s. Mean AV gradient is 5 mmHg. Max AV gradient is 10 mmHg. SVi=59 mL/m2. The true AV gradients may be underestimated in this study). Mild AI. Moderate MR. Mild TR. Elevated RVSP 30-35 mmHg. Electronically signed by : Neema Cole MD 03/26/2023 20:25:49
--- NOTE | 2023-03-22 06:44 | NM_ITS ---
APPROVED REPORT Exam: Nuclear Stress Test Indication: VAVULAR DISEASE, OBESITY, HTN, HYPERLIPIDEMIA, FM HX, SYNCOPE, ABNORMAL CARDIAC MRI Patient Location: Outpatient Stress Tech: Archana Camarena NH Tech:Mackenzie Harley JOSEPH RT (R)(N)(M) Ht: 5 ft 2 in Wt: 159 lbs Bra Size: DD HR: 49 bpm BP: 174/58 mmHg BSA: 1.73 m2 Rhythm: NSR TID: 1.04 BMI: 29.0 History: VAVULAR DISEASE, OBESITY, HTN, HYPERLIPIDEMIA, FM HX, SYNCOPE, ABNORMAL CARDIAC MRI Procedure: Patient received 0.4 mg of intravenous Lexiscan, resting heart rate 49 bpm, resting blood pressure 174/58 mmHg, with Lexiscan maximum heart rate achieved was 74 bpm which is % of the maximum predicted heart rate and blood pressure was 137/56 mmHg. With Lexiscan, patient denied any complaint of chest pain. Cardiac Stress and Resting SPECT Images: Cardiac Stress and Resting SPECT images were obtained using technetium 99m Myoview 31.8 mCi stress and 10.61 mCi at rest. Resting and stress imaging in supine position demonstrate a medium sized, mild, fixed perfusion defect in the distal anterior LV wall. This is no longer visualized with prone stress imaging. Findings are suggestive of soft tissue attenuation. Gated imaging demonstrates normal global and regional LV systolic function. LVEF is calculated at 68%. Conclusion: Soft tissue attenuation is present. No definite evidence of fixed or reversible perfusion defects. Gated imaging demonstrates normal global and regional LV systolic function. LVEF is calculated at 68%. Electronically signed by : Neema Cole MD 03/29/2023 10:45:15
--- NOTE | 2023-03-22 09:42 | MM_ITS ---
PROCEDURE INFORMATION: Exam: MG Bilateral Screening 3D Mammography Exam date and time: 03/22/2023 9:48 AM Age: 77 years old Clinical indication: Screening examination TECHNIQUE: Imaging protocol: Bilateral Screening tomosynthesis and 2D mammography including computer-aided detection (CAD) when performed. COMPARISON: 1. MG DIG MAMM-SCREEN DILMA 09/08/2018 9:40 AM 2. MG SCBI MM Dig screening mamm BI w/CAD 08/16/2017 10:36 AM FINDINGS: MAMMOGRAPHY: Breast composition: There are scattered areas of fibroglandular density. Mass: None. Architectural distortion: None. Calcifications: No suspicious calcifications. Asymmetric density: None. Skin thickening: None. Axillary adenopathy: None. IMPRESSION: No mammographic evidence of malignancy. Annual screening is recommended unless otherwise clinically indicated. ASSESSMENT: BI-RADS Category 1: Negative
== END ==
PROVIDERS: PCP Family Medicine; Visit Provider Internal Medicine
DX: E78.5 Hyperlipidemia, unspecified (principal); I05.0 Rheumatic mitral stenosis; I10 Essential (primary) hypertension; I25.10 Atherosclerotic heart disease of native coronary artery without angina pectoris; I35.0 Nonrheumatic aortic (valve) stenosis; I35.1 Nonrheumatic aortic (valve) insufficiency; R93.89 Abnormal findings on diagnostic imaging of other specified body structures; R94.39 Abnormal result of other cardiovascular function study; Z12.31 Encounter for screening mammogram for malignant neoplasm of breast
CPT/HCPCS: 77063; 77067; 78452; 93017; 93018; 93306; A9502; J2785

== ENCOUNTER 2023-04-30 06:52 | Emergency (ER) | payer MEDICARE, SELFPAY ==
[2023-04-30 06:54] VITALS: BP 169/82; PULSE 58; RESP 16; TEMP 36.7; O2SAT 98; BMI 28.3
[2023-04-30 07:02] VITALS: BP 169/82; PULSE 62; O2SAT 99
--- NOTE | 2023-04-30 07:07 | CT_ITS ---
PROCEDURE INFORMATION: Exam: CT Abdomen And Pelvis Without Contrast Exam date and time: 04/30/2023 7:19 AM Age: 78 years old Clinical indication: Abdominal pain; Flank; Right; Prior surgery; Surgery date: 6+ months; Surgery type: Removal of appendix and gallbladder; Additional info: Right flank pain, dysuria TECHNIQUE: Imaging protocol: Computed tomography of the abdomen and pelvis without contrast. Radiation optimization: All CT scans at this facility use at least one of these dose optimization techniques: automated exposure control; mA and/or kV adjustment per patient size (includes targeted exams where dose is matched to clinical indication); or iterative reconstruction. REPORTING DATA: Count of CT and Cardiac NM exams in prior 12 months: This patient has received 4 known CTs and 0 known cardiac nuclear medicine studies in the 12 months prior to the current study. COMPARISON: CT ABDOMEN PELVIS W CON 03/13/2023 6:38 PM FINDINGS: Diaphragm: Small hiatal hernia. Liver: Normal. No mass. Gallbladder and bile ducts: Previous cholecystectomy. Pancreas: Normal. No ductal dilation. Spleen: Normal. No splenomegaly. Adrenal glands: Normal. No mass. Kidneys and ureters: No hydronephrosis. Multiple nonobstructing renal calculi bilaterally, largest on the left measures 12 mm. Stable lobulated cystic lesion in the superior pole left kidney. Stomach and bowel: Colonic diverticulosis without CT evidence of diverticulitis. Stable duodenal diverticulum. Appendix: No evidence of appendicitis. Intraperitoneal space: Unremarkable. No free air. No significant fluid collection. Vasculature: Unremarkable. No abdominal aortic aneurysm. Lymph nodes: Unremarkable. No enlarged lymph nodes. Urinary bladder: Unremarkable as visualized. Reproductive: Unremarkable as visualized. Bones/joints: Severe degenerative changes lumbar spine. Soft tissues: Unremarkable. IMPRESSION: 1. No hydronephrosis. Multiple nonobstructing renal calculi bilaterally, largest on the left measures 12 mm. 2. Stable lobulated cystic lesion in the superior pole left kidney.
--- NOTE | 2023-04-30 07:10 | HMH.EDGENADL ---
Discharge Plan Disposition Patient Disposition: Home, Self-Care Prescriptions Prescriptions: New nitrofurantoin monohyd/m-cryst 100 mg capsule 100 mg PO BID 5 Days Qty: 10 0RF Rx Instructions: must administer with a meal/food No Action losartan 100 mg tablet 100 mg PO DAILY hydrochlorothiazide 25 mg tablet 25 mg PO DAILY meclizine 25 mg tablet 25 mg PO DAILY PRN (Reason: motion sickness) Qty: 20 0RF levothyroxine 100 mcg tablet 75 mcg PO DAILY Referrals Follow up/Referrals: Artem Osborne MD [Primary Care Provider] - See instructions Activity Restrictions/Add. Instructions Additional Instructions/Restrictions: Please return to the emergency department with refractory symptoms after antibiotic course or any worsening symptoms such as a high fever or other concerns. Clinical Impressions Clinical Impression: UTI (urinary tract infection) Instructions Patient Instructions: DI for Urinary Tract Infection (UTI), DI for Urinary Tract Infection in Children Discharge ED Provider: Michael Valles General Adult HPI General Chief complaint: Urogenital-Female Stated complaint: frequency,burning,pain with urination Time Seen by Provider: 04/30/23 07:00 Mode of Arrival: Ambulatory Source of Information: Patient Limitations: No Limitations Description of Symptoms (Recalled from ER Triage Doc. by RN): Patient c/o right flank pain, painful urination, and frequency. History of Present Illness HPI narrative: Patient is a 78-year-old female presenting today with dysuria urinary urgency and right flank pain. States this began suddenly about 10:00 last night has been constant since that time and she is been unable to sleep because she has been so much discomfort. States she has a history of kidney stone and this feels similar. Denies any fevers or chills denies any other medical problems denies any significant abdominal pain etc. Related Data Home Medications Medication Instructions Recorded Confirmed hydrochlorothiazide 25 mg tablet 25 mg PO DAILY Fluid 04/29/21 04/30/23 losartan 100 mg tablet 100 mg PO DAILY BLOOD PRESSURE 04/29/21 04/30/23 levothyroxine 100 mcg tablet 75 mcg PO DAILY thyriod 03/08/23 04/30/23 Previous Rx's Medication Instructions Recorded meclizine 25 mg tablet 25 mg PO DAILY PRN motion sickness 03/13/23 #20 tabs nitrofurantoin 100 mg PO BID 5 days #10 caps 04/30/23 monohydrate/macrocrystals 100 mg capsule Allergies Allergy/AdvReac Type Severity Reaction Status Date / Time No Known Allergies Allergy Verified 03/29/23 10:14 [facility] Disclaimer: The information contained in this section may have been updated after the patient was seen, as this information can be updated by other users. 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
[2023-04-30 07:26] LABS: Microscopic, Urine URINE MICROSCOPIC (MICROSCOPIC)
[2023-04-30 07:31] VITALS: BP 152/62; PULSE 48; O2SAT 97
[2023-04-30 07:31] LABS: Chloride 101 mmol/L (98-107); Sodium 134 mmol/L (136-145)
[2023-04-30 07:32] LABS: Potassium 3.6 mmoL/L (3.5-5.1)
[2023-04-30 07:33] LABS: Appearance,Urine CLEAR (Clear); Bilirubin,Urine Negative (Negative); Blood, Urine Negative (Negative); Color,Urine YELLOW (Yellow); Glucose,Urine (UA) Negative (Negative); Ketones,Urine Negative (Negative); Leukocyte Esterase,Urine 2+ (Negative); Nitrate,Urine Negative (Negative); PH,Urine 6.5 (5.0-8.5); Protein,Urine Negative (Negative); Specific Gravity, Urine 1.015 (1.005-1.030)
[2023-04-30 07:34] LABS: Alanine Aminotransferase 18 U/L (12-78); Albumin/Globulin Ratio 1.3 (1.1-1.8); Alkaline Phosphatase 156 U/L (38-126); Anion Gap 12.6 mEq/L (5-15); Aspartate Amino Transferase 31 U/L (14-36); Bilirubin,Total 0.7 mg/dl (0.2-1.3); Blood Urea Nitrogen 24 mg/dl (7-17); Carbon Dioxide 24 mmol/L (22.0-30.0); Creatinine Clearance Estimated 52 mL/min (50-200); Estimated Glomerular Filt Rate 70 ml/min (>60); GFR (African American) 84 ML/MIN (>60); Globulin 3.2 g/dL (1.3-3.2); Total Protein,Serum 7.2 g/dl (6.3-8.2)
[2023-04-30 07:35] LABS: Calcium 8.1 mg/dl (8.4-10.2); Glucose 101 mg/dl (74-100)
[2023-04-30 07:37] LABS: Basophils # 0.1 K/mm3 (0-0.2); Basophils % 0.7 % (0.1-2.0); Eosinophils # 0.3 K/mm3 (0.0-0.4); Eosinophils % 4.4 % (0.1-12.0); Hematocrit 36.7 % (37.0-47.0); Hemoglobin 12.2 g/dL (12.2-16.2); Lymphocytes # 1.7 K/mm3 (0.7-4.5); Lymphocytes % 24.9 % (10-50); Mean Corpuscular HGB Conc 33.3 g/dL (31.8-35.4); Mean Corpuscular Hemoglobin 28.9 pg (27.0-31.2); Mean Corpuscular Volume 86.7 fl (81-99); Mean Platelet Volume 8.2 fl (7.4-10.4); Monocytes # 0.3 K/mm3 (0.1-1.0); Monocytes % 4.2 % (1.7-9.3); Neutrophils # 4.5 K/mm3 (1.8-7.8); Neutrophils % 65.7 % (37.0-80.0); Platelet Count 289 K/mm3 (142-424); Red Blood Count 4.23 M/mm3 (4.20-5.40); Red Cell Distribution Width 14.5 % (11.5-17.5); White Blood Count 6.9 K/mm3 (4.8-10.8)
[2023-04-30 07:54] LABS: WBC,Urine 20-50 #/hpf (0-3)
[2023-04-30 08:03] VITALS: BP 141/45; PULSE 55; RESP 18; TEMP 36.7; O2SAT 95
--- NOTE | 2023-05-04 12:04 | PC.NURSE ---
urine culture showed proteus mirabilis/penneri, pt dc on macrobid, aware, no further action
== END 2023-04-30 08:07 | disposition home or self-care (01) ==
PROVIDERS: Student in an Organized Health Care Education/Training Program; Emergency Provider Emergency Medicine; PCP Family Medicine
DX: N39.0 Urinary tract infection, site not specified (principal); B96.4 Proteus (mirabilis) (morganii) as the cause of diseases classified elsewhere; R10.31 Right lower quadrant pain; I11.9 Hypertensive heart disease without heart failure; I25.10 Atherosclerotic heart disease of native coronary artery without angina pectoris; E78.5 Hyperlipidemia, unspecified; E03.9 Hypothyroidism, unspecified; I35.0 Nonrheumatic aortic (valve) stenosis
CPT/HCPCS: 74176; 80053; 81001; 85025; 87086; 96374; 96375; 99284; J2405

== ENCOUNTER 2023-09-29 09:06 | Outpatient (CLI) | payer MEDICARE, SELFPAY ==
--- NOTE | 2023-09-29 09:06 | CA_ITS ---
APPROVED REPORT EXAM: Comprehensive 2D, Doppler, and color-flow Echocardiogram Bumper And Painter: Alcira Al RDCS Ht: 5 ft 2 in Wt: 158lbs BSA: 1.73 BP: 125/72 mmHg Indications: CAD,MS,MR,AI M-Mode Dimensions RVDd 2.08 cm (0.9-2.6) LA Diam 4.64 cm (1.9-4.0) LVDd 5.87 cm (3.5-5.7) LVDs 4.19 cm (3.5-5.7) IVSd 1.17 cm (0.6-1.1) PWd 0.95 cm (0.6-1.1) EF (Teich) 54.40% FS 28.60% EDV (Teich) 171.20 mL ESV (Teich) 78.10 mL LV Diastology E Decel Time 477 (160-240 msec) E/A Ratio 1.0 Aortic Valve JESSICA Index 0.98 cm2/m2 AoV Peak Deep. 134.0 (50-130 cm/s) AO Peak GR. 7.20 mmHg AO Mean GR. 3.60 (<5 mmHg) AO VTI 31.2 (18-25 cm) JESSICA (VTI) 1.73 (2.5-4.5 cm2) Mitral Valve MV E Max Deep. 110.0 (40-130 cm/s) MV A Velocity 113.0 (40-130 cm/s) E/A Ratio 0.97 MV PHT 140.0 ms Tricuspid Valve TR P. Velocity 236.00 cm/s RAP Estimate 10.00 mmHg RVSP 32.40 mmHg Left Ventricle The left ventricle is normal size. The left ventricular systolic function is normal. The left ventricular ejection fraction is within the normal range. There is increased LV wall thickness. There is normal LV segmental wall motion. Grade 2 diastolic dysfunction. LVEF is 55%. Right Ventricle Right ventricle is mildly dilated. The right ventricular systolic function is normal. Atria Left atrium is severely dilated. Right atrium is mildly dilated. There no Doppler evidence of interatrial shunt. Aortic Valve The aortic valve is mildly thickened. Mild aortic stenosis. JESSICA by 2D planimetry is 1.7 cm2. Peak velocity 1.8 m/s. Mean AV gradient is 5 mmHg. Max AV gradient is 8 mmHg. Mild aortic regurgitation. Mitral Valve Moderate mitral annular calcification (MAC). The mitral valve is mildly thickened. No evidence of mitral valve stenosis. Mean MV gradient 3 mmHg (HR 50 bpm). Mild to moderate mitral regurgitation. Tricuspid Valve The tricuspid valve leaflets are thin and pliable. Mild tricuspid regurgitation. RVSP is 20-25 mmHg. Pulmonic Valve The pulmonary valve is normal in structure. Mild pulmonic regurgitation. Great Vessels The aortic root is normal in size. The ascending aorta is normal in size. IVC is normal in size and collapses >50% with inspiration. Pericardium There is no pericardial effusion. Other Information Study Quality: Fair Conclusion Normal biventricular systolic function. Mild RV dilation. Biatrial dilation. Mild (JESSICA by 2D planimetry is 1.7 cm2). Mild AI, mild TR, mild PI. Mild to moderate MR. Compared to prior study from 03/2023, there are no significant changes. The severity is unchanged. Electronically signed by : Neema Cole MD 10/02/2023 21:13:02
== END 2023-09-29 23:59 | disposition home or self-care (01) ==
LOC: RT 09:06
PROVIDERS: PCP Family Medicine; Visit Provider Internal Medicine
DX: I25.9 Chronic ischemic heart disease, unspecified (principal); I11.9 Hypertensive heart disease without heart failure; I25.10 Atherosclerotic heart disease of native coronary artery without angina pectoris; R94.39 Abnormal result of other cardiovascular function study; I34.0 Nonrheumatic mitral (valve) insufficiency; I35.1 Nonrheumatic aortic (valve) insufficiency; I35.0 Nonrheumatic aortic (valve) stenosis; R93.89 Abnormal findings on diagnostic imaging of other specified body structures; E78.5 Hyperlipidemia, unspecified
CPT/HCPCS: 93306

== ENCOUNTER 2024-11-19 13:40 | Outpatient (CLI) | payer MEDICARE, SELFPAY ==
--- OUTSIDE RECORDS SUMMARY | 2024-04-14 17:00 | XMS_ITS ---
Author Organization [facility] Address [address] [place] [address] Care Team Providers Care Pollution Control Engineer Name Role Phone Artem Osborne Primary Care Provider Loco Diggs Unavailable Migration, Provider Unavailable Unavailable REASON FOR VISIT [facility] To [facility] Conversion Encounter Medications Medication SIG (Take, [...] Active Encounters Encounter Location Date Provider Diagnosis [facility] [address] [place] [address] 04/14/2024 Provider Migration Plan Of Treatment No Information Progress Notes * Marlyn MARINOeDOB:1945 (79 yo F)Acc No.[id number]:04/14/2024 Patient: Pebbles MANCIA Provider: Savanah huntley Migration :1945 A ge:79 Y S ex:Female Date:04/14/2024 Address:[address] [place] [address], [place], [id number] Pcp:Artem Osborne Subjective: * Chief Complaints: * 1 . [facility] En[facility]. * Medical History: * [...] Electronic signature of Iker roy Migration on 11/19/2024 at 01:48 PM EDT Sign off status: Pending * Provider: Savanah huntley Migration Date: 06/15/2023 Generated for Valentina leblanc/Fabio/Ana on: 0 11/19/2024 01:48 PM EDT
--- OUTSIDE RECORDS SUMMARY | 2024-05-18 09:30 | XMS_ITS ---
Author Organization [facility] Address [address] [place] [id number] Care Team Providers Care Simulation Software Engineer Name Role Phone Artem Osborne Primary Care Provider REASON FOR VISIT ckup & labs Encounters Encounter Location Date Provider Diagnosis [facility] [address] [place] [id number] 05/18/2024 Artem Osborne Plan Of Treatment Next Appt Details Provider Name:Artem Garcia ry, 05/13/2025 10:15:00 AM, [address], [address], [place], [id number], Progress Notes * CORINNAMarlyn BROWNeDOB:1945 (79 yo F)Acc No.[id number]:05/18/2024 Progress Notes Patient: Pebbles MANCIA Provider: Teagan Osborne M.D. :1945 A ge:79 Y S ex:Female Date:05/18/2024 Address:[address] [id number] Subjective: * Chief Complaints: * 1 . Ckup & labs. * Medical History: Objective: * Vitals: Assessment: Plan: * Treatment: * Images: Billing Information: * Visit Code: * Procedure Codes: * Electronic signature of Yusra Osborne MD on 11/19/2024 at 01:48 PM EDT Sign off status: Pending * Provider: Teagan Osborne M.D. Date: 0 05/18/2024 Generated for Valentina leblanc/Fabio/Ana on: 0 11/19/2024 01:48 PM EDT
--- OUTSIDE RECORDS SUMMARY | 2024-06-01 06:00 | XMS_ITS ---
Author Organization [facility] Address [address] [facility] [address] [place] [phone] Care Team Providers Care Legal Associate Name Role Phone Artem Osborne Primary Care Provider Allergies No Known Allergies Results Component Value Reference Range Notes P-Comprehensive Metabolic Pa hay (CMP) Reviewed date:06/04/2024 08:39:24 AM Interpretation:bun 25, alk phos 136 Performing Lab: Notes/Report: Test performed by [facility] [address] [place] [address] , [address], [place] [address] Kai Kaplan MD, Blueprint Processor CLIA: [id number] Sodium 138 135-145 mmol/L Potassium 4.2 3.5-5.3 mmol/L Chloride 101 97-108 mmol/L CO2 25 22-32 mmol/L Glucose 88 65-99 mg/dL BUN 25 8-23 mg/dL Creatinine 0.73 0.50-1.00 mg/dL Calcium 9.1 8.6-10.4 mg/dL eGFR by Creatinine 84 >59 mL/min/1.73m2 Protein 6.7 6.0-8.3 g/dL Albumin 4.2 3.5-5.3 g/dL Alkaline Phosphatase 136 35-121 IU/L ALT (SGPT) 11 <5-47 IU/L AST (SGOT) 20 <5-40 IU/L Bilirubin, Total 1.0 <0.2-1.2 mg/dL A/G Ratio 1.7 1.1-2.5 P-T4 Free (thyroxine) Reviewed date:06/04/2024 08:39:24 AM Interpretation: Normal Performing Lab: Notes/Report: Test performed by [facility] [address] [place] [address] , [address], [place] [address] Kai Kaplan MD, Blueprint Processor CLIA: [id number] Thyroxine Free (free T4) 1.56 0.86-1.76 ng/dL P-Lipid Panel Reviewed date:06/04/2024 08:39:24 AM Interpretation:non-hdl 144 Performing Lab: Notes/Report: Test performed by [facility] [address] [place] [address] , [address], [place] [address] Kai Kaplan MD, Blueprint Processor CLIA: [id number] Cholesterol 199 <200 mg/dL Triglycerides 90 <150 mg/dL HDL Cholesterol 55 >39 mg/dL Cholesterol / HDL Ratio 3.62 0.00-4.44 Ratio Non-HDL Cholesterol 144 <130 mg/dL LDL Cholesterol (Calculation) 126 <130 mg/dL LDL Cholesterol Levels* Less than 100 mg/dL Optimal 100 to 129 mg/dL Near Optimal/ Above Optimal 130 to 159 mg/dL Borderline High 160 to 189 mg/dL High 190 mg/dL and above Very High * Categories as recommended by the 2004 ATPIII guidelines LDL/HDL Ratio 2.3 <3.3 Ratio LDL Cholesterol Patient History Test Date: 05/25/2022 LDL Results: 80 Units: mg/dL % Change: - Test Date: 06/01/2024 LDL Results: 126 Units: mg/dL % Change: +57% P-TSH Reviewed date:06/04/2024 08:39:24 AM Interpretation:6.44 Performing Lab: Notes/Report: Test performed by [facility] [address] [place], [place] [address] [place] , [facility] [address], [place] [address] Kai Kaplan MD, Blueprint Processor CLIA: [id number] TSH 6.44 0.43-5.25 mU/L P-Microalbumin/Creatinine, R andom Urine Sample Reviewed date:06/04/2024 08:39:24 AM Interpretation: Normal Performing Lab: Notes/Report: Test performed by [facility] [address] [place], [place] [address] [place] , [address], [place] [address] Kai Kaplan MD, Blueprint Processor CLIA: [id number] Albumin/Creatinine Ratio, Urine 22 0-30 ug/m g Microalbumin, Urine, Random 1.8 Creatinine, Urine 80.1 REASON FOR VISIT CKUP & REFILLS Medications Medication SIG (Take, Route, Frequency, Duration) Notes Start Date End Date Status Aspirin 81 MG 1 TAB(S) ORALLY ONCE A DAY Active Losartan Potassium 100 MG 1 tablet Orall y Once a day; Duration: 90 days Active Triamcinolone Acetonide 0.1 % 1 applicat ion Externally Twice a day 06/01/2024 Active Atorvastatin Calcium 20 MG 1 tablet Oral ly Once a day; Duration: 90 days Active hydroCHLOROthiazide 25 MG 1 tab(s) orall y once a day; Duration: 90 days Active Levothyroxine Sodium 75 MCG TAKE 1 TABLE T BY MOUTH ONCE DAILY; Duration: 90 Active Problems Problem Type SNOMED Code ICD Code Onset Dates Problem Status W/U Status Risk Notes Problem Acquired hypothyroidism (238615834) Acquired hypothyroidism (E03.9) Active confirmed Vital Signs Weight 164.5 lbs 06/01/2024 Blood pressure systolic 130 mm Hg 06/01/19 25 Blood pressure diastolic 78 mm Hg 025 Heart Rate 73 /min 06/01/2024 Height 60.50 in 06/01/2024 BMI 31.59 kg/m2 06/01/2024 Encounters Encounter Location Date Provider Diagnosis [facility] [address] [facility] [address] [facility] [address] [place] [id number] 06/01/2024 Artem Osborne Essential hypertensi on, hypertension with unspecified goal I10 ; Pure hypercholesterolemia E78.00 ; Acquired hypothyroidism E03.9 and Rash R21 Assessments Encounter Date Diagnosis (ICD Code) Assessment Notes Treatment Notes Treatment Clinical Notes Section Notes 06/01/2024 Essential hypertensi on, hypertension with unspecified goal (ICD-10 - I10) 06/01/2024 Pure hypercholesterolemia (ICD-10 - E78.00) 06/01/2024 Acquired hypothyroid ism (ICD-10 - E03.9) 06/01/2024 Rash (ICD-10 - R21) Plan Of Treatment Medication Medication Name Sig Start Date Stop Date Notes Triamcinolone Acetonide 0.1 % 1 applicat ion Externally Twice a day 06/01/2024 Next Appt Details Follow Up: via phone to repo rt test results, 6 Months, Reason: Provider Name:Artem Garcia ry, 05/13/2025 10:15:00 AM, [address] [facility] 36 [facility], [address], [place], [phone], Progress Notes * Satinder MARINOOB:1945 (79 yo F)Acc No.[id number]:06/01/2024 Progress Notes Patient: Kade MANCIAnie Provider: Teagan Osborne M.D. :1945 A ge:79 Y S ex:Female Date:06/01/2024 Address:[address] [place] [address] [phone] Subjective: * Chief Complaints: * 1 . CKUP & REFILLS. * HPI: C ardiology: 79 year old female presents with c/o Blood Pressure Elevated?Pt here to f/u on hypertension, states she is doing well and does not have any concerns. c/o Hyperlipidemia P t is fasting today. E ndocrinology: c/o Hypothyroidism P t here to f/u. * ROS: D ERMATOLOGY: no R adam. n o H kuldeep. G ASTROENTEROLOGY: no N ausea. n o V omiting. U ROLOGY: no D ifficulty urinating. n o B lood in urine. * Medical History: H ypertension , Graves Disease , Hyperlipidemia, Psorisis, Cervical spine osteoarthritis, Cervical Disc Disease, Occipital neuralgia, Colon polyps. * Surgical History: R uptured Appendix 1947, Adhesions 1959, cholecystectomy 1996, oophorectomy, bilateral 2004, colonoscopy 2015, colonoscopy 2017. * Hospitalization/Major Diagno stic Procedure: D enies Past Hospitalization. * Family History: F ather: , Testicular Cancer. M other: , Heart Attack. S iblings: One brother Heart Attack & Heart Transplant. 3 brother(s) . 2 son(s) , 1 daughter(s) - healthy. . * Social History: C URRENT TOBACCO USE S moking Status: Patient does NOT smoke. C affeine: yes, frequency: 1 cup a day. Exercise: yes, Curves. Marital Status: . Past smoking status: no. * Medications: T aking Aspirin 81 MG ENTERIC COATED TABLET 1 TAB(S) ORALLY ONCE A DAY , Taking Losartan Potassium 100 MG Tablet 1 tablet Orally Once a day , Taking Atorvastatin Calcium 20 MG Tablet 1 tablet Orally Once a day , Taking hydroCHLOROthiazide 25 MG Tablet 1 tab(s) orally once a day , Taking Levothyroxine Sodium 75 MCG Tablet TAKE 1 TABLET BY MOUTH ONCE DAILY , Discontinued Cyclobenzaprine HCl 5 MG Tablet 1 or 2 tablets as needed Orally every 8 hours , Discontinued Paxlovid (300/100) 20 x 150 MG & 10 x 100MG Tablet Therapy Pack 3 tablets Orally Twice a day , Discontinued Potassium Chloride ER 10 MEQ Tablet Extended Release 1 tab(s) orally once a day * Allergies: N .K.D.A. Objective: * Vitals: W t:164.5, Temp:97.8, BP:130/78, HR:73, Nurse:tomasa, Ht: 60.50, BMI:31.59. * Examination: C ardiology: General Appearance: p leasant, NAD. H EENT: u nremarkable. H eart sounds: R RR, normal S1, S2. L ungs: c lear, no rales or wheezes.?Extremities: n o leg edema. P eripheral pulses: 2 plus bilateral. ? G eneral Examination: Skin: s mall rough, dry scaling patch of skin on the right christian. Assessment: * Assessment: 1. E ssential hypertension, hypertension with unspecified goal - I10 (Primary) 2 . P ure hypercholesterolemia - E78.00 3 . A cquired hypothyroidism - E03.9? 4. R adam - R21 Plan: * Treatment: Value Reference Range A /G Ratio 1.7 1.1-2.5 - * A lbumin 4.2 3.5-5.3 - g/dL * A lkaline Phosphatase 136 H 35-121 - IU/L * A LT (SGPT) 11 <5-47 - IU/L * A ST (SGOT) 20 <5-40 - IU/L * B ilirubin, Total 1.0 <0.2-1.2 - mg/dL * B UN 25 H 8-23 - mg/dL * C alcium 9.1 8.6-10.4 - mg/dL * C hloride 101 97-108 - mmol/L * C O2 25 22-32 - mmol/L * C reatinine 0.73 0.50-1.00 - mg/dL * G lucose 88 65-99 - mg/dL * P otassium 4.2 3.5-5.3 - mmol/L * S odium 138 135-145 - mmol/L * P rotein 6.7 6.0-8.3 - g/dL * e GFR by Creatinine 84 >59 - mL/min/1.73m2 * Yamileth Heller 06/04/2024 8:39: 19 AM >See phone encounter ?LAB: P-Microalbumin/Creatinine, Random Urine Sample (Collection Date & Time - 06/01/2024 09:46 AM)?Normal* Value Reference Range A lbumin/Creatinine Ratio, Urine 22 0-30 - ug /mg * C reatinine, Urine 80.1 - mg/dL * M icroalbumin, Urine, Random 1.8 - mg/dL * Yamileth Heller 06/04/2024 8:39: 19 AM >See phone encounter 2.?Pure hypercholesterolemia?LAB: P-Comprehensive Metabolic Panel (CMP) (Collection Date & Time - 06/01/2024 09:46 AM)?bun 25, alk phos 136* Value Reference Range A /G Ratio 1.7 1.1-2.5 - * A lbumin 4.2 3.5-5.3 - g/dL * A lkaline Phosphatase 136 H 35-121 - IU/L * A LT (SGPT) 11 <5-47 - IU/L * A ST (SGOT) 20 <5-40 - IU/L * B ilirubin, Total 1.0 <0.2-1.2 - mg/dL * B UN 25 H 8-23 - mg/dL * C alcium 9.1 8.6-10.4 - mg/dL * C hloride 101 97-108 - mmol/L * C O2 25 22-32 - mmol/L * C reatinine 0.73 0.50-1.00 - mg/dL * G lucose 88 65-99 - mg/dL * P otassium 4.2 3.5-5.3 - mmol/L * S odium 138 135-145 - mmol/L * P rotein 6.7 6.0-8.3 - g/dL * e GFR by Creatinine 84 >59 - mL/min/1.73m2 * Yamileth Hleler 06/04/2024 8:39: 19 AM >See phone encounter ?LAB: P-Lipid Panel (Collection Date & Time - 06/01/2024 09:46 AM)?non-hdl 144* Value Reference Range C holesterol / HDL Ratio 3.62 0.00-4.44 - Ratio * C holesterol 199 <200 - mg/dL * H DL Cholesterol 55 >39 - mg/dL * L DL Cholesterol (Calculation) 126 <130 - mg/d L * L DL/HDL Ratio 2.3 <3.3 - Ratio * N on-HDL Cholesterol 144 H <130 - mg/dL * T riglycerides 90 <150 - mg/dL * Yamileth Heller 06/04/2024 8:39: 19 AM >See phone encounter 3.?Acquired hypothyroidism?LAB: P-T4 Free (thyroxine) (Collection Date & Time - 06/01/2024 09:46 AM)? Normal* Value Reference Range T hyroxine Free (free T4) 1.56 0.86-1.76 - ng/d L * Yamileth Heller 06/04/2024 8:39: 19 AM >See phone encounter ?LAB: P-TSH (Collection Date & Time - 06/01/2024 09:46 AM)?6.44* Value Reference Range T SH 6.44 H 0.43-5.25 - mU/L * Yamileth Heller 06/04/2024 8:39: 19 AM >See phone encounter 4.?Rash? Start Triamcinolone Acetonide Cream, 0.1 %, 1 application, Externally, Twice a day, 15 grams, Refills 0.?? * Procedure Codes: G 2211 Complex e/m visit add on * Follow Up: v ia phone to report test results, 6 Months * Images: Billing Information: * Visit Code: 91128 Office Visit, Est Pt., Level 4. * Procedure Codes: G2211 Complex e/m visit add on. * Electronic signature of Yusra Osborne MD on 11/19/2024 at 01:48 PM EDT Sign off status: Pending * Provider: Teagan Osborne M.D. Date: 0 06/01/2024 Generated for Valentina leblanc/Fabio/eTransmitting on: 0 11/19/2024 01:48 PM EDT History and Physical Notes * HPI (History of Present Illness) Category Sub-Category Detail Notes Category Not es Endocrinology Hypothyroidism Pt here to f/u Cardiology Blood Pressure Elevated Pt here to f/u on hypertension, states she is doing well and does not have any concerns Hyperlipidemia Pt is fasting today Examination Category Sub-Category Detail Notes Category Not es General Examination Skin: small rough, dry scaling patch of skin on the right christian Cardiology Lungs: clear, no rales or wheezes HEENT: unremarkable Heart sounds: RRR, normal S1, S2 Extremities: no leg edema Peripheral pulses: 2 plus bilateral General Appearance: pleasant, NAD
--- OUTSIDE RECORDS SUMMARY | 2024-11-07 06:00 | XMS_ITS ---
Author Organization [facility] Address [address] [facility] [address] [place] [id number] Care Team Providers Care Cnc Specialist Name Role Phone Artem Osborne Primary Care [...] Interpretation:Normal Performing Lab: Notes/Report: Test performed by [facility] [address] [place] [address] [place] [address] Kai Kaplan MD, Casket Liner CLIA: [id number] Thyroxine Free (free T4) 1.49 0.86-1.76 ng/dL P-TSH Reviewed date:11/08/2024 03:16:25 PM Interpretation:7.8 Performing Lab: Notes/Report: Test performed by [facility] [address] [place] [address] [address], [place] [address] Kai Kaplan MD, Casket Liner CLIA: [id number] TSH 7.80 0.43-5.25 mU/L TEN-UTI panel Reviewed [...] y once a day Active Vital Signs Weight 164 lbs 11/07/2024 Blood pressure systolic 130 mm Hg 11/08/19 25 Blood pressure diastolic 78 mm Hg 025 Heart Rate 74 /min 11/07/2024 Height 60.50 in 11/07/2024 BMI 31.5 kg/m2 11/07/2024 Encounters Encounter Location Date Provider Diagnosis [facility] [address] [facility] [address] [place] [id number] 11/07/2024 Artem Osborne Acute UTI N39.0 ; [...] [address], [address], [place], [id number], Progress Notes * Satinder MARINOOB:1945 (79 yo F)Acc No.[id number]:11/07/2024 Progress Notes Patient: Pebbles MANCIA Provider: Teagan Osborne M.D. :1945 A ge:79 Y S ex:Female Date:11/07/2024 Address:[address] [place] [address], [place], [id number] Subjective: * Chief Complaints: * 1 . [...] G 2211 Complex e/[place], [address] Urinalysis, no micro, 1036F TOBACCO NON- USER, G8950 PREHTN/HTN BP DOC INDCD F/U DOC, G8752 MOST RECENT SYSTOLIC BP < 140MM HG, G8754 MOST RECENT DIASTOLIC BP < 90MM HG * Follow Up: 6 Months * Images: Billing Information: * Visit Code: 86251 Office Visit, Est Pt., Level 4. * Procedure Codes: G2211 Complex e/[place]. [address] Urinalysis, no micro. 1036F TOBACCO NON-USER. G8950 PREHTN/HTN BP DOC INDCD F/U DOC. G8752 MOST RECENT SYSTOLIC BP < 140MM HG. G8754 MOST RECENT DIASTOLIC BP < 90MM HG. * Electronic signature of Yusra Osborne MD on 11/19/2024 at 01:48 PM EDT Sign off status: Pending * Provider: Teagan Osborne M.D. Date: 11/07/2024 Generated for Valentina leblanc/Fagregoriog/eTransmitting on: 11/19/2024 01:48 PM EDT History and Physical [...]
--- NOTE | 2024-11-19 13:45 | CA_ITS ---
APPROVED REPORT EXAM: Comprehensive 2D, Doppler, and color-flow Echocardiogram Manager Credit Collections: Lori Juares CRT Ht: 5 ft 1 in Wt: 164lbs BSA: 1.74 BP: 143/67 mmHg Indications: Aortic Valve Stenosis, Hyperlipidemia, Hypertension/HDD 2D Dimensions LA Volume 45.70 mL LA Volume Index 25.70 mL/m2 (M/F) 16-34 M-Mode Dimensions RVDd 2.96 cm (0.9-2.6) LA Diam 4.78 cm (1.9-4.0) LVDd 4.46 cm (3.5-5.7) LVDs 3.23 cm (3.5-5.7) IVSd 1.71 cm (0.6-1.1) PWd 0.84 cm (0.6-1.1) EF (Teich) 53.70% FS 27.60% EDV (Teich) 90.50 mL ESV (Teich) 41.90 mL LV Diastology E Decel Time 433 (160-240 msec) E/A Ratio 1.02 MED A' 3.90 cm/s LAT A' 6.00 cm/s Aortic Valve JESSICA Index 1.88 cm2/m2 AoV Peak Deep. 125.0 (50-130 cm/s) AI PHT 846.00 ms AO Peak GR. 6.20 mmHg AO Mean GR. 4.00 (<5 mmHg) AO VTI 30.6 (18-25 cm) JESSICA (VTI) 3.35 (2.5-4.5 cm2) Mitral Valve MV A Velocity 132.0 (40-130 cm/s) E/A Ratio 1.02 MV Mean Gr. 2.80 (<2mmHg) MV PHT 107.0 ms Pulmonary Valve PV Peak Velocity 183.0 (50-150 cm/s) Tricuspid Valve TR P. Velocity 208.00 cm/s RAP Estimate 10.00 mmHg RVSP 27.30 mmHg Left Ventricle The left ventricle is normal size. The left ventricular systolic function is normal. The left ventricular ejection fraction is within the normal range. There is increased LV wall thickness. There is normal LV segmental wall motion. Diastolic function is indeterminate. LVEF is 65%. Right Ventricle Right ventricle is mildly dilated. The right ventricular systolic function is normal. Atria Left atrium is severely dilated. Right atrium is moderately dilated. There is no Doppler evidence of interatrial shunt. Aortic Valve The aortic valve is moderately thickened. Mild aortic regurgitation. Mild aortic stenosis is present. JESSICA by continuity question is 1.7 cm2. Peak velocity 1.9 m/s. Mean AV gradient 10 mmHg. Max AV gradient 15 mmHg. Mitral Valve Moderate mitral annular calcification is present. The mitral valve leaflets are moderately thickened. No evidence of mitral valve stenosis. Mean MV gradient 3 mmHg at HR 51 bpm. Mild to moderate mitral regurgitation. Tricuspid Valve Tricuspid valve is grossly normal in structure and function. Mild tricuspid regurgitation. RVSP is 20-25 mmHg. Pulmonic Valve The pulmonary valve is normal in structure. Mild pulmonic regurgitation. Great Vessels The aortic root is normal in size. The ascending aorta is borderline dilated, measuring 3.7 cm in diameter. IVC is normal in size and collapses >50% with inspiration. Pericardium There is no pericardial effusion. Other Information Study Quality: Fair Conclusion Normal biventricular systolic function. Mild RV dilation. Biatrial dilation. Mild (JESSICA by continuity question is 1.7 cm2. Peak velocity 1.9 m/s. Mean AV gradient 10 mmHg. Max AV gradient 15 mmHg). Mild to moderate MR. Mild AI, mild TR, mild PI. Borderline dilated ascending aorta (3.7 cm in diameter). Compared to prior study from 09/29/2023, there are no significant changes. The severity of aortic stenosis is unchanged. Electronically signed by : Neema Cole MD 11/24/2024 22:43:53
--- OUTSIDE RECORDS SUMMARY | 2024-11-19 13:48 | XMS_ITS | Patient Health Record ---
Author Organization [facility] Address [address] [place] [address] Care Team Providers Care Firm Administrator Name Role Phone Artem Osborne Primary Care Provider Unavailobed e Loco Bansal Unavailable Migration, Provider Unavailable Unavailable Allergies No Known Allergies Reason For Referral No Information Medications Medication SIG (Take, Route, Frequency, Duration) [...] for e-prescription and drug interaction check* Active Losartan Potassium 100 MG 1 tab(s) orall y once a day for 30 day(s) 09/07/2021 Active Problems Problem Type SNOMED Code ICD Code Onset Dates Problem Status W/U Status Risk Notes Problem Cervical root syndrome (810099650) Cervical root disorders, not elsewhere classified (G54.2) Active confirmed Problem Cervical spondylosis without myelopathy (371247100) Spondylosis without myelopathy or radiculopathy , cervical region (M47.812) Active confirmed Problem Thoracic spondylosis without myelopathy (598990127) Spondylosis without myelopathy or radiculopathy , thoracic region WRM (M47.814) Active confirmed Problem Occipital neuralgia (69392456) Occipital neuralgia WRM (M54.81) Active confirmed Problem 238602019 intermodal customer service (current) drug therapy WRM (Z79.899) Active confirmed Problem 8049408 Brachial plexopathy (G54.0) Active confirmed Problem Trigeminal neuralgia (16759082) Trigeminal neuralgia (G50.0) Active confirmed Problem Brachial plexus disorder (9674655) Brachial plexopathy WRM (G54.0) Active confirmed Problem Cervical spondylosis without myelopathy (163168953) Cervical spondylosis without myelopathy (M47.812) Active confirmed Patient cervica l area pain with headache is multifactorial in nature with contributions from the C0/1 joint on the right, C1/2 joint bilaterally, and C5/6 joint bilaterally with elements of the facet and IT ligament and nuchal ligament producing symptoms. Patient was counseled regarding the findings and injections were ordered to better delineate pain generators with an emphasis on an RFA to produce fdc pain management symptoms. Problem 39438541 Cervical spinal stenosis (M48.02) Active confirmed Encounters Encounter Location Date Provider Diagnosis [facility] [address] [place] [address] 04/14/2024 Provider Migration Plan Of Treatment Pending Test Test Name Order Date CMBB - Cervical 2-Level - Right (88261-4 ) 10/20/2021 Urine Drug Testing 09/07/2021 Future Test Test Name Order Date CMBB - Cervical 2-Level - Right (04934-6 ) 09/07/2021 TMBB - Thoracic 2-Level - Right (08426-2 ) 09/11/2021 TMJ Injection w/ fluoro - Right () 09/11/2021 Insurance Providers Payer Name Payer Address Payer Phone Subscriber Number Group Number Insured Name Patient Relationship to Insured Coverage Start Date Coverage End Date [place] [address] [place] [address] [id number] Pebbles Jackson Self - patient is the insured 2 [facility] Medicare Supplement [facility] [employer] [address] [place] [address] [id number] Pebbles Jackson Self - patient is the insured 2 Medical (General) History Medical History History ICD Code Headaches: Yes(portal) Thyroid disease: Yes(portal) Hypertension Dyslipidemia shingles - left forehead about 2017 shingles - possible on right forehead ab out 2018 Surgical History Surgery Date(Month/Year) thyroid removal with radation ovary removal gallbladder addhesions Appendectomy Hospitalization History Reason Date(Month/Year) Child Kidney Stones
--- OUTSIDE RECORDS SUMMARY | 2024-11-19 13:48 | XMS_ITS ---
Author Organization Unknown Results OrderDate OrderTestName ResultName ResultDate Value Units Range AbnormalFlag ResultStatus ObservationNotes TestCode ResultCode DateRecorded AccessionNumber DiagnosticSectionCode DiagnosticSectionName Sequence Interpretation 06/01/2024 00:00:00 P-Microalbumin/Creatinine, Random Urine Sample Microalbumin, Urine, Random 6766-41-85T20:00:00 1.8 mg/dL - mg/dL Yamileth Reynolds 06/04/2024 8:39:19 AM > See phone encounter P-Microalbumin/Creatinine, R andom Urine Sample 06/01/2024 00:00: 00:00:00P-Microalbumin/Creatinine, Random Urine SampleCreatinine, Imphn3007-10-26C19:00:0080.1mg/dL- mg/dLReYamileth Boone 06/04/2024 8:39:19 AM > See phone encounter Coding P-Microalbumin/Creatinine, R andom Urine Sample 06/01/2024 00:00: 00:00:00P-Microalbumin/Creatinine, Random Urine SampleAlbumin/Creatinine Ratio, Hnajk0767-78-13R93:00:0022ug/mg0-30 - ug/mg Yamileth Sánchez 06/04/2024 8:39:19 AM > See phone encounter Coding P-Microalbumin/Creatinine, R andom Urine Sample 06/01/2024 00:00: 00:00:58S-ZMLBLZ1705-78FGLCPK2602-74-93Z74:00:006.44mU/L0.43- 5.25 - mU/LHReYamileth Boone 06/04/2024 8:39:19 AM > See phone encounter Coding P-TSH 06/01/2024 00:00: 00:00:00P-Lipid PanelTriglycerides 4455-25-19I57:00:0090mg/dL<150 - mg/dLYamileth Sánchez 06/04/2024 8:39:19 AM > See phone encounter Coding P-Lipid Panel 06/01/2024 00:00: 00:00:00P-Lipid PanelNon-HDL Cholesterol 7926-91-35B19:00:42914ih/dL<130 - mg/dLYamileth Gunter 06/04/2024 8:39:19 AM > See phone encounter Coding P-Lipid Panel 06/01/2024 00:00: 00:00:00P-Lipid PanelLDL/HDL Ratio 5167-92-50W32:00:002.3Ratio<3.3 - RatioReYamileth Boone 06/04/2024 8:39:19 AM > See phone encounter Coding P-Lipid Panel 06/01/2024 00:00: 00:00:00P-Lipid PanelLDL Cholesterol (Calculation) 2304-68-03F30:00:53658gy/dL<130 - mg/dLYamileth Sánchez 06/04/2024 8:39:19 AM > See phone encounter Coding P-Lipid Panel 06/01/2024 00:00: 00:00:00P-Lipid PanelHDL Cholesterol 8509-21-29L41:00:0055mg/dL>39 - mg/dLYamileth Sánchez 06/04/2024 8:39:19 AM > See phone encounter Coding P-Lipid Panel 06/01/2024 00:00: 00:00:00P-Lipid PanelCholesterol 4787-50-44T45:00:22998on/dL<200 - mg/dLYamileth Sánchez 06/04/2024 8:39:19 AM > See phone encounter Coding P-Lipid Panel 06/01/2024 00:00: 00:00:00P-Lipid PanelCholesterol / HDL Ratio 7751-21-50E98:00:003.37Qpykm3.00-4.44 - RatioReYamileth Boone 06/04/2024 8:39:19 AM > See phone encounter Coding P-Lipid Panel 06/01/2024 00:00: 00:00:00P-T4 Free (thyroxine)Thyroxine Free (free T4)1789-61-64B93:00:001.56ng/dL0.86-1.76 - ng/dLReYamileth Boone 06/04/2024 8:39:19 AM > See phone encounter Coding P-T4 Free (thyroxine) 06/01/2024 00:00: 00:00:00P-Comprehensive Metabolic Panel (CMP)eGFR by Iptvqjgrpw6556-77-79E11:00:0084mL/min/1.73m2>59 - mL/min/1.74u2SoqnabrzYamileth Jones 06/04/2024 8:39:19 AM > See phone encounter Coding P-Comprehensive Metabolic Pa hay (CMP) 06/01/2024 00:00: 00:00:00P-Comprehensive Metabolic Panel (CMP) Ehgrghf8545-06-99V40:00:006.7g/dL6.0-8.3 - g/dLYamileth Sánchez 06/04/2024 8:39:19 AM > See phone encounter Coding P-Comprehensive Metabolic Pa hay (CMP) 06/01/2024 00:00: 00:00:00P-Comprehensive Metabolic Panel (CMP) Xnoaoh9732-11-25P67:00:12133eclb/G168-140 - mmol/LRevYamileth Guardado 06/04/2024 8:39:19 AM > See phone encounter Coding P-Comprehensive Metabolic Pa hay (CMP) 06/01/2024 00:00: 00:00:00P-Comprehensive Metabolic Panel (CMP) Maeexjxiq4333-38-25M50:00:004.2mmol/L3.5-5.3 - mmol/LRevYamileth Guardado 06/04/2024 8:39:19 AM > See phone encounter Coding P-Comprehensive Metabolic Pa hay (CMP) 06/01/2024 00:00: 00:00:00P-Comprehensive Metabolic Panel (CMP) Uoqhwgo9105-99-15K41:00:0088mg/dL65-99 - mg/dLYamileth Sánchez 06/04/2024 8:39:19 AM > See phone encounter Coding P-Comprehensive Metabolic Pa hay (CMP) 06/01/2024 00:00: 00:00:00P-Comprehensive Metabolic Panel (CMP) Rtenonjkgh4137-74-80W90:00:000.73mg/dL0.50-1.00 - mg/dLYamileth Sánchez 06/04/2024 8:39:19 AM > See phone encounter Coding P-Comprehensive Metabolic Pa hay (CMP) 06/01/2024 00:00: 00:00:00P-Comprehensive Metabolic Panel (CMP)CO2 4774-48-04Y13:00:0025mmol/L22-32 - mmol/LRevYamileth Guardado 06/04/2024 8:39:19 AM > See phone encounter Coding P-Comprehensive Metabolic Pa hay (CMP) 06/01/2024 00:00: 00:00:00P-Comprehensive Metabolic Panel (CMP) Pjgcljmd0871-75-99W51:00:29609jtfx/L97-108 - mmol/LRevYamileth Guardado 06/04/2024 8:39:19 AM > See phone encounter Coding P-Comprehensive Metabolic Pa hay (CMP) 06/01/2024 00:00: 00:00:00P-Comprehensive Metabolic Panel (CMP) Tuleinx8274-37-87L56:00:009.1mg/dL8.6-10.4 - mg/dLYamileth Sánchez 06/04/2024 8:39:19 AM > See phone encounter Coding P-Comprehensive Metabolic Pa hay (CMP) 06/01/2024 00:00: 00:00:00P-Comprehensive Metabolic Panel (CMP)BUN 5747-18-84L39:00:0025mg/dL8-23 - mg/dLYamileth Gunter 06/04/2024 8:39:19 AM > See phone encounter Coding P-Comprehensive Metabolic Pa hay (CMP) 06/01/2024 00:00: 00:00:00P-Comprehensive Metabolic Panel (CMP) Bilirubin, Zoyxh2542-16-16H36:00:001.0mg/dL<0.2-1.2 - mg/dLYamileth Sánchez 06/04/2024 8:39:19 AM > See phone encounter Coding P-Comprehensive Metabolic Pa hay (CMP) 06/01/2024 00:00: 00:00:00P-Comprehensive Metabolic Panel (CMP)AST (SGOT)3613-27-85U42:00:0020IU/L<5-40 - IU/LRYamileth Boyce 06/04/2024 8:39:19 AM > See phone encounter Coding P-Comprehensive Metabolic Pa hay (CMP) 06/01/2024 00:00: 00:00:00P-Comprehensive Metabolic Panel (CMP)ALT (SGPT)7376-14-56E81:00:0011IU/L<5-47 - IU/LRYamileth Boyce 06/04/2024 8:39:19 AM > See phone encounter Coding P-Comprehensive Metabolic Pa hay (CMP) 06/01/2024 00:00: 00:00:00P-Comprehensive Metabolic Panel (CMP) Alkaline Eacbifojqlb9999-51-55L14:00:91437NX/L35-121 - IU/LHYamileth Sánchez 06/04/2024 8:39:19 AM > See phone encounter Coding P-Comprehensive Metabolic Pa hay (CMP) 06/01/2024 00:00: 00:00:00P-Comprehensive Metabolic Panel (CMP) Rwgoree2447-36-71C98:00:004.2g/dL3.5-5.3 - g/dLRevieweYamileth English 06/04/2024 8:39:19 AM > See phone encounter Coding P-Comprehensive Metabolic Pa hay (CMP) 06/01/2024 00:00: 00:00:00P-Comprehensive Metabolic Panel (CMP)A/G Ozejc3571-39-60U33:00:001.71.1-2.5 -ReviewedYamileth Heller 06/04/2024 8:39:19 AM > See phone encounter Coding P-Comprehensive Metabolic Pa hay (CMP) 06/01/2024 00:00:00
--- OUTSIDE RECORDS SUMMARY | 2024-11-19 13:49 | XMS_ITS | Patient Health Record ---
[facility] Address [address] [facility] [address] [place] [id number] Care Team Providers Care Bung Driver Name Role Phone [place] Artem Primary Care Provider Allergies No Known Allergies Results Component Value Reference Range Notes P-Comprehensive Metabolic Pa hay (CMP) Reviewed date:06/04/2024 08:39:24 AM Interpretation:bun 25, alk phos 136 Performing Lab: Notes/Report: Test performed by [facility] [address] , [address], [place] [address] Kai Kaplan MD, Blueprint Assembler CLIA: [id number] Sodium 138 135-145 mmol/L Potassium 4.2 3.5-5.3 [...] Normal Performing Lab: Notes/Report: Test performed by [facility] [address] [place] [address] , [address], [place] [address] Kai Kaplan MD, Blueprint Assembler CLIA: [id number] Thyroxine Free (free T4) 1.56 0.86-1.76 ng/dL P-Lipid Panel Reviewed date:06/04/2024 08:39:24 AM Interpretation:non-hdl 144 Performing Lab: Notes/Report: Test performed by [facility] [address] [place] [address] , [address], [place] [address] Kai Kaplan MD, Blueprint Assembler CLIA: [id number] Cholesterol 199 <200 mg/dL Triglycerides 90 <150 [...] Interpretation:6.44 Performing Lab: Notes/Report: Test performed by [facility] [address] [place] [address] , [address], [place] [address] Kai Kaplan MD, Blueprint Assembler CLIA: [id number] TSH 6.44 0.43-5.25 mU/L P-Microalbumin/Creatinine, R andom Urine Sample Reviewed date:06/04/2024 08:39:24 AM Interpretation: Normal Performing Lab: Notes/Report: Test performed by [facility] [address] [place] [address] , [address], [place] [address] Kai Kaplan MD, Blueprint Assembler CLIA: [id number] Albumin/Creatinine Ratio, Urine 22 0-30 ug/mg Microalbumin, Urine, Random 1.8 Creatinine, Urine 80.1 Urinalysis - Inhouse Reviewed date:11/07/2024 11:58:24 AM Interpretation: Performing Lab: Notes/Report: Color/Clarity Yellow/Cloudy Leuk 1+ Nitrite Pos Urobili 16 Protein Trace pH 7.5 Blood Trace-Intact Sp. Gr. 1.015 Ketone Neg Bili Neg Gluc Neg P-T4 Free (thyroxine) Reviewed date:11/08/2024 03:16:25 PM Interpretation:Normal Performing Lab: Notes/Report: Test performed by [facility] [address] [place] [address] , [address], [place] [address] Kai Kaplan MD, Blueprint Assembler CLIA: [id number] Thyroxine Free (free T4) 1.49 0.86-1.76 ng/dL P-TSH Reviewed date:11/08/2024 03:16:25 PM Interpretation:7.8 Performing Lab: Notes/Report: Test performed by [facility] [address] [place] [address] , [address], [place] [address] Kai Kaplan MD, Blueprint Assembler CLIA: [id number] TSH 7.80 0.43-5.25 mU/L TEN-UTI panel Reviewed date:11/11/2024 01:21:48 PM Interpretation:Abnormal Performing Lab: Notes/Report: Abnormal Reason For Referral No Information Medications Medication SIG (Take, Route, Frequency, Duration) Notes Start Date End Date Status Nitrofurantoin Monohyd Macro 100 MG 1 capsule with food Orally every 12 hrs; Duration: 5 day(s) 11/07/2024 Active hydroCHLOROthiazide 25 MG 1 tab(s) orall y once a day; Duration: 90 days Active Losartan Potassium 100 MG 1 tablet Orall y Once a day; Duration: 90 days Active Levothyroxine Sodium 75 MCG 1 tablet in the morning on an empty stomach Orally Once a day; Duration: 90 days Active Atorvastatin Calcium 20 MG 1 tablet Oral ly Once a day; Duration: 90 days Active Triamcinolone Acetonide 0.1 % 1 applicat ion Externally Twice a day 06/01/2024 Active Cefuroxime Axetil 500 MG 1 tablet Orally every 12 hrs; Duration: 5 days 11/12/2024 Active Immunizations Vaccine Route Administration Date Status Comme nts COVID 19 Moderna Unknown 05/14/2020 Administered COVID 19 Moderna Unknown 06/11/2020 Administered COVID 19 Moderna Unknown 01/21/2021 Administered COVID 19 Moderna Unknown 08/08/2021 Administered Fluzone High Dose (65yr and older) Unknown 03/19/2022 Administered Fluzone High Dose (65yr and older) Unknown 02/16/2023 Administered PNEUMOVAX 23 VACCINE IM Intramuscular 07/29/2015 Administe red Prevnar (PCV13) IM Intramuscular 08/06/2013 Administered Prevnar (PCV20) IM Intramuscular 05/25/2022 Administered jUralyfg-miqeawukr-hmwdbsn e pts. IM Intramuscular 04/09/2011 Administered Problems Problem Type SNOMED Code ICD Code Onset Dates Problem Status W/U Status Risk Notes Problem Solitary nodule of lung (669347898) Lung nodule (R91.1) Active confirmed Problem Cervical radiculopathy (13652651) Cervical radiculopathy (M54.12) Active confirmed Problem Pure hypercholesterolemia (247970408) Pure hypercholesterolemia (E78.0) Active confirmed Problem Occipital neuralgia (56919594) Occipital neuralgia (M54.81) Active confirmed Problem Cervical disc diseas e (714288472) Cervical disc disease (M50.90) Active confirmed Problem Acquired hypothyroidism (271782938) Acquired hypothyroidism (E03.9) Active confirmed Problem Obesity (004421385) Non morbid o besity, unspecified obesity type (E66.9) Active confirmed Problem Sacroiliitis (28126701) Sacroiliitis (M46.1) Active confirmed Problem Sciatica (14650213) Right sided sciatica (M54.31) Active confirmed Problem Postablative hypothyroidism (662449142) Postablative hypothyroidism (E89.0) Active confirmed Problem Disorder of neck (684016397) Disorder of neck (M53.82) Active confirmed Problem Essential hypertension (38342353) Essential hypertension, hypertension with unspecified goal (I10) Active confirmed Problem Pharyngeal dysphagia (74070691920830) Pharyngeal dysphagia (R13.13) Active confirmed Problem Pure hypercholesterolemia (560523197) Pure hypercholesterolemia (E78.00) Active confirmed Problem Arthropathy of cervical spine facet joint (disorder) (375318683) Facet arthropathy, cervical (M47.812) Active confirmed Vital Signs Heart Rate 74 /min 11/07/2024 Blood pressure diastolic 78 mm Hg 11/07/2024 Height 60.50 in 11/07/2024 Blood pressure systolic 130 mm Hg 11/07/2024 Weight 164 lbs 11/07/2024 BMI 31.5 kg/m2 11/07/2024 Encounters Encounter Location Date Provider Diagnosis [facility] [address] [place], [place] [id number] 06/01/2024 Artem [place] Essential hypertensi on, hypertension with unspecified goal I10 ; Pure hypercholesterolemia E78.00 ; Acquired hypothyroidism E03.9 and Rash R21 [facility] [address] [place], [place] [id number] 11/07/2024 Artem [place] Acute UTI N39.0 ; Es sential hypertension, hypertension with unspecified goal I10 ; Acquired hypothyroidism E03.9 and Non morbid obesity, unspecified obesity type E66.9 [facility] [address] [place], [place] [id number] 11/19/2024 Artem Osborne [facility] [address] [place], [place] [id number] 11/30/2023 Artem Osborne [facility] [address] [place], [place] [id number] 06/04/2024 Artem Osborne [facility] [address] [place], [place] [id number] 11/08/2024 Artem [place] Acquired hypothyroid ism E03.9 and Essential hypertension, hypertension with unspecified goal I10 Assessments Encounter Date Diagnosis (ICD Code) Assessment Notes Treatment Notes Treatment Clinical Notes Section Notes 06/01/2024 Essential hypertensi on, hypertension with unspecified goal (ICD-10 - I10) 06/01/2024 Pure hypercholesterolemia (ICD-10 - E78.00) 11/07/2024 Acute UTI (ICD-10 - N39.0) 11/07/2024 Essential hypertensi on, hypertension with unspecified goal (ICD-10 - I10) 11/08/2024 Acquired hypothyroid ism (ICD-10 - E03.9) 11/08/2024 Essential hypertensi on, hypertension with unspecified goal (ICD-10 - I10) 11/07/2024 Acquired hypothyroid ism (ICD-10 - E03.9) 06/01/2024 Acquired hypothyroid ism (ICD-10 - E03.9) 06/01/2024 Rash (ICD-10 - R21) 11/07/2024 Non morbid obesity, unspecified obesity type (ICD-10 - E66.9) Plan Of Treatment Next Appt Details Provider Name:Artem paul, 05/13/2025 10:15:00 AM, [address], [address], [place], [place], [id number], Insurance Providers Payer Name Payer Address Payer Phone Subscriber Number Group Number Insured Name Patient Relationship to Insured Coverage Start Date Coverage End Date MEDICARE PART B [address] [address] [place] [address] [id number] Pebbles Jackson Self - patient is the insured [employer] [address] [place] [address] [id number] Jozef Jackson Spouse - patient is the spouse of the insured Medications Administered Medication Instructions Date of Administration Dosage Notes Depo- Medrol 40 mg/ml 12/29/2018 1 mL Medical (General) History Medical History History ICD Code Hypertension Graves Disease Hyperlipidemia Psorisis Cervical spine osteoarthritis Cervical Disc Disease Occipital neuralgia Colon polyps Cardiac murmur Surgical History Surgery Date(Month/Year) Ruptured Appendix 194 Adhesions 1959 cholecystectomy 1996 oophorectomy, bilateral 2005 colonoscopy 2016 colonoscopy 2018 Hospitalization History Reason Date(Month/Year)
== END 2024-11-19 23:59 | disposition home or self-care (01) ==
LOC: RT 13:40
PROVIDERS: PCP Family Medicine; Visit Provider Internal Medicine
DX: I08.8 Other rheumatic multiple valve diseases (principal); I11.9 Hypertensive heart disease without heart failure; I77.810 Thoracic aortic ectasia; I25.10 Atherosclerotic heart disease of native coronary artery without angina pectoris; E78.5 Hyperlipidemia, unspecified; R94.39 Abnormal result of other cardiovascular function study; R93.89 Abnormal findings on diagnostic imaging of other specified body structures
CPT/HCPCS: 93306

== ENCOUNTER 2024-11-22 09:45 | Inpatient (IN) | payer MEDICARE, SELFPAY ==
--- OUTSIDE RECORDS SUMMARY | 2024-04-14 17:00 | XMS_ITS ---
Author Organization [facility] Address [address] [place] [address] Care Team Providers Care Junior Software Engineer Name Role Phone Artem Osborne Primary Care Provider Loco Diggs Unavailable Migration, Provider Unavailable Unavailable REASON FOR VISIT [facility] To [facility] Conversion Encounter Medications Medication SIG (Take, Route, Frequency, Duration) Notes Start Date End Date Status Atorvastatin Calcium 20 MG 1 tab(s) orally once a day for 30 day(s) 09/07/2021 Active Gabapentin 300 MG 1 cap(s) orally once a day for 30 day(s) 09/07/2021 Active hydroCHLOROthiazide 25 MG 1 tab(s) orall y once a day for 30 day(s) 09/07/2021 Active Levothyroxine Sodium 100 MCG 1 tab(s) orally once a day for 30 day(s) 09/07/2021 Active Losartan Potassium 100 MG 1 tab(s) orall y once a day for 30 day(s) 09/07/2021 Active MODERNA COVID-19 VACCINE PF *Please review for potential replacement for e-prescription and drug interaction check* Active Encounters Encounter Location Date Provider Diagnosis [facility] [address] [place] [address] 04/14/2024 Provider Migration Plan Of Treatment No Information Progress Notes * Marlyn MARINOeDOB:1945 (79 yo F)Acc No.[id number]:04/14/2024 Patient: Pebbles MANCIA Provider: Savanah huntley Migration :1945 A ge:79 Y S ex:Female Date:04/14/2024 Address:[address] [place] [address], [place], [id number] Pcp:Artem Osborne Subjective: * Chief Complaints: * [address] [facility] [address] [facility] En[facility]. * Medical History: * Medications: T aking MODERNA COVID-19 VACCINE PF , Notes to Pharmacist: *Please review for potential replacement for e-prescription and drug interaction check*, Taking Atorvastatin Calcium 20 MG Tablet 1 tab(s) orally once a day , Taking Gabapentin 300 MG Capsule 1 cap(s) orally once a day , Taking hydroCHLOROthiazide 25 MG Tablet 1 tab(s) orally once a day , Taking Levothyroxine Sodium 100 MCG Tablet 1 tab(s) orally once a day , Taking Losartan Potassium 100 MG Tablet 1 tab(s) orally once a day Objective: * Vitals: Assessment: Plan: * Treatment: * Billing Information: * Visit Code: * Procedure Codes: * Electronic signature of Iker roy Migration on 11/23/2024 at 08:03 AM EDT Sign off status: Pending * Provider: Savanah huntley Migration Date: 06/15/2023 Generated for Valentina leblanc/Fabio/Ana on: 11/23/2024 08:03 AM EDT
--- OUTSIDE RECORDS SUMMARY | 2024-04-14 17:00 | XMS_ITS ---
Author Organization [facility] Address [address] [place] [address] Care Team Providers Care Health And Safety Director Name Role Phone Artem Osborne Primary Care Provider Loco Diggs Unavailable [phone] Migration, Provider Unavailable Unavailable REASON FOR VISIT [facility] To [facility] Conversion Encounter Medications Medication SIG (Take, Route, [...] Active Encounters Encounter Location Date Provider Diagnosis [facility] [address] [place] [address] 04/14/2024 Provider Migration Plan Of Treatment No Information Progress Notes * Marlyn MARINOeDOB:1945 (79 yo F)Acc No.[id number]:04/14/2024 Patient: Pebbles MANCIA Provider: Savanah huntley Migration :1945 A ge:79 Y S ex:Female Date:04/14/2024 Address:[address] [place] [address], [place], [id number] Pcp:Artem Osborne Subjective: * Chief Complaints: * 1 . [facility] En[facility]. * Medical History: * [...] Electronic signature of Iker roy Migration on 11/22/2024 at 10:05 AM EDT Sign off status: Pending * Provider: Savanah huntley Migration Date: 06/15/2023 Generated for Valentina leblanc/Fabio/Ana on: 11/22/2024 10:05 AM EDT
--- OUTSIDE RECORDS SUMMARY | 2024-05-18 09:30 | XMS_ITS ---
Author Organization [facility] Address [address] [place] [id number] Care Team Providers Care Mixer Runner Name Role Phone Artem Osborne Primary Care Provider [phone] REASON FOR VISIT ckup & labs Encounters Encounter Location Date Provider Diagnosis [facility] [address] [place] [id number] 05/18/2024 Artem Osborne Plan Of Treatment Next Appt Details Provider Name:Artem Garcia ry, 05/13/2025 10:15:00 AM, [address], [address], [place], [id number], Progress Notes * CORINNAMarlyn BROWNeDOB:1945 (79 yo F)Acc No.[id number]:05/18/2024 Progress Notes Patient: Pebbles MANCIA Provider: Teagan Osborne M.D. :1945 A ge:79 Y S ex:Female Date:05/18/2024 Address:[address] [id number] Subjective: * Chief Complaints: * 1 . Ckup & labs. * Medical History: Objective: * Vitals: Assessment: Plan: * Treatment: * Images: Billing Information: * Visit Code: * Procedure Codes: * Electronic signature of Yusra Osborne MD on 11/22/2024 at 10:06 AM EDT Sign off status: Pending * Provider: Teagan Osborne M.D. Date: 0 05/18/2024 Generated for Valentina leblanc/Fabio/Ana on: 0 11/22/2024 10:06 AM EDT
--- OUTSIDE RECORDS SUMMARY | 2024-05-18 09:30 | XMS_ITS ---
Author Organization [facility] Address [address] [place] [id number] Care Team Providers Care Export Sales Manager Name Role Phone Artem Osborne Primary Care Provider REASON FOR VISIT ckup & labs Encounters Encounter Location Date Provider Diagnosis [facility] [address] [place] [id number] 05/18/2024 Artem Osborne Plan Of Treatment Next Appt Details Provider Name:Artem Garcia ry, 05/13/2025 10:15:00 AM, [address], [address], [place], [id number], Progress Notes * CORINNAMarlyn BROWNeDOB:1945 (79 yo F)Acc No.[id number]:05/18/2024 Progress Notes Patient: Pebbles MANCIA Provider: Teagan Osborne M.D. :1945 A ge:79 Y S ex:Female Date:05/18/2024 Address:[address] [id number] Subjective: * Chief Complaints: * 1 . Ckup & labs. * Medical History: Objective: * Vitals: Assessment: Plan: * Treatment: * Images: Billing Information: * Visit Code: * Procedure Codes: * Electronic signature of Yusra Osborne MD on 11/23/2024 at 08:04 AM EDT Sign off status: Pending * Provider: Teagan Osborne M.D. Date: 0 05/18/2024 Generated for Valentina leblanc/Fabio/Ana on: 0 11/23/2024 08:04 AM EDT
--- OUTSIDE RECORDS SUMMARY | 2024-06-01 06:00 | XMS_ITS ---
Author Organization [facility] Address [address] [facility] [address] [place] [id number] Care Team Providers Care Powder Shoveler Name Role Phone Artem Osborne Primary Care Provider [phone] Allergies No Known Allergies Results Component Value Reference Range Notes P-Comprehensive Metabolic Pa hay (CMP) Reviewed date:06/04/2024 08:39:24 AM Interpretation:bun 25, alk phos 136 Performing Lab: Notes/Report: Test performed by [facility] [address] [place] [address] , [address], [place] [address] Kai Kaplan MD, Fitness Sales Associate CLIA: [id number] Sodium 138 135-145 mmol/L Potassium 4.2 3.5-5.3 [...] Normal Performing Lab: Notes/Report: Test performed by [facility] [address] [place] [address] , [address], [place] [address] Kai Kaplan MD, Fitness Sales Associate CLIA: [id number] Thyroxine Free (free T4) 1.56 0.86-1.76 ng/dL P-Lipid Panel Reviewed date:06/04/2024 08:39:24 AM Interpretation:non-hdl 144 Performing Lab: Notes/Report: Test performed by [facility] [address] [place] [address] , [address], [place] [address] Kai Kaplan MD, Fitness Sales Associate CLIA: [id number] Cholesterol 199 <200 mg/dL Triglycerides 90 <150 [...] Interpretation:6.44 Performing Lab: Notes/Report: Test performed by [facility] [address] [place], [place] [email or web address] [place] , [facility] [address], [place] [address] Kai Kaplan MD, Fitness Sales Associate CLIA: [id number] TSH 6.44 0.43-5.25 mU/L P-Microalbumin/Creatinine, R andom Urine Sample Reviewed date:06/04/2024 08:39:24 AM Interpretation: Normal Performing Lab: Notes/Report: Test performed by [facility] [address] [place], [place] [email or web address] [place] , [address], [place] [address] Kai Kaplan MD, Fitness Sales Associate CLIA: [id number] Albumin/Creatinine Ratio, Urine 22 0-30 ug/m g [...] W/U Status Risk Notes Problem Acquired hypothyroidism (410388389) Acquired hypothyroidism (E03.9) Active confirmed Vital Signs Blood pressure systolic 130 mm Hg 06/01/19 25 Blood pressure diastolic 78 mm Hg 025 Heart Rate 73 /min 06/01/2024 Height 60.50 in 06/01/2024 Weight 164.5 lbs 06/01/2024 BMI 31.59 kg/m2 06/01/2024 Encounters Encounter Location Date Provider Diagnosis [facility] [address] [facility] 36 [facility] [address] [place] [id number] 06/01/2024 Artem Osborne Essential hypertensi on, hypertension [...] Name:Artem Garcia ry, 05/13/2025 10:15:00 AM, [address] [facility] 36 [facility], [address], [place], [id number], Progress Notes * Satinder MARINOOB:1945 (79 yo F)Acc No.[id number]:06/01/2024 Progress Notes Patient: Kade MANCIAnie Provider: Teagan Osborne M.D. :1945 A ge:79 Y S ex:Female Date:06/01/2024 Address:[address] [place] [address] [id number] Subjective: * Chief Complaints: [...] scaling patch of skin on the right yazidi. Assessment: * Assessment: 1. E ssential hypertension, [...] * Images: Billing Information: * Visit Code: 86066 Office Visit, Est Pt., Level 4. * Procedure Codes: G2211 Complex e/m visit add on. * Electronic signature of Yusra Osborne MD on 11/22/2024 at 10:06 AM EDT Sign off status: Pending * Provider: Teagan Osborne M.D. Date: 0 06/01/2024 Generated for Valentina leblanc/Fabio/eTransmitting on: 0 11/22/2024 10:06 AM EDT History and Physical Notes * HPI [...] scaling patch of skin on the right yazidi Cardiology Lungs: clear, no rales or wheezes HEENT: unremarkable Heart sounds: RRR, normal S1, S2 Extremities: no leg edema Peripheral pulses: 2 plus bilateral General Appearance: pleasant, NAD
--- OUTSIDE RECORDS SUMMARY | 2024-06-01 06:00 | XMS_ITS ---
Author Organization [facility] Address [address] [facility] [address] [place] [id number] Care Team Providers Care Director Of Mobile Marketing Name Role Phone Artem Osborne Primary Care Provider [phone] Allergies No Known Allergies Results Component Value Reference Range Notes P-Comprehensive Metabolic Pa hay (CMP) Reviewed date:06/04/2024 08:39:24 AM Interpretation:bun 25, alk phos 136 Performing Lab: Notes/Report: Test performed by [facility] [address] [place] [address] , [address], [place] [address] Kai Kaplan MD, Science Tutor CLIA: [id number] Sodium 138 135-145 mmol/L Potassium 4.2 3.5-5.3 [...] Normal Performing Lab: Notes/Report: Test performed by [facility] [address] [place] [address] , [address], [place] [address] Kai Kaplan MD, Science Tutor CLIA: [id number] Thyroxine Free (free T4) 1.56 0.86-1.76 ng/dL P-Lipid Panel Reviewed date:06/04/2024 08:39:24 AM Interpretation:non-hdl 144 Performing Lab: Notes/Report: Test performed by [facility] [address] [place] [address] , [address], [place] [address] Kai Kaplan MD, Science Tutor CLIA: [id number] Cholesterol 199 <200 mg/dL Triglycerides 90 <150 [...] Interpretation:6.44 Performing Lab: Notes/Report: Test performed by [facility] [address] [place], [place] [address]opin[facility] [place] , [facility] [address], [place] [address] Kai Kaplan MD, Science Tutor CLIA: [id number] TSH 6.44 0.43-5.25 mU/L P-Microalbumin/Creatinine, R andom Urine Sample Reviewed date:06/04/2024 08:39:24 AM Interpretation: Normal Performing Lab: Notes/Report: Test performed by [facility] [address] [place], [place] [address]opinions[facility] [place] , [address], [place] [address] Kai Kaplan MD, Science Tutor CLIA: [id number] Albumin/Creatinine Ratio, Urine 22 0-30 ug/m g [...] W/U Status Risk Notes Problem Acquired hypothyroidism ([id number]) Acquired hypothyroidism (E03.9) Active confirmed Vital Signs Blood pressure systolic 130 mm Hg 06/01/19 25 Blood pressure diastolic 78 mm Hg 025 Heart Rate 73 /min 06/01/2024 Height 60.50 in 06/01/2024 Weight 164.5 lbs 06/01/2024 BMI 31.59 kg/m2 06/01/2024 Encounters Encounter Location Date Provider Diagnosis [facility] [address] [facility] 36 [facility] [address] [place] [id number] 06/01/2024 Artem Osborne Essential hypertensi on, hypertension [...] Name:Artem Garcia ry, 05/13/2025 10:15:00 AM, [address] [facility] 36 [facility], [address], [place], [id number], Progress Notes * Satinder MARINOOB:1945 (79 yo F)Acc No.[id number]:06/01/2024 Progress Notes Patient: Kade MANCIAnie Provider: Teagan Osborne M.D. :1945 A ge:79 Y S ex:Female Date:06/01/2024 Address:[address] [place] [address] [id number] Subjective: * Chief Complaints: [...] scaling patch of skin on the right jainism. Assessment: * Assessment: 1. E ssential hypertension, [...] 1.56 0.86-1.76 - ng/d L * Yamileth Helelr 06/04/2024 8:39: 19 AM >See phone encounter [...] * Images: Billing Information: * Visit Code: 70802 Office Visit, Est Pt., Level 4. * Procedure Codes: G2211 Complex e/m visit add on. * Electronic signature of Yusra Osborne MD on 11/23/2024 at 08:04 AM EDT Sign off status: Pending * Provider: Teagan Osborne M.D. Date: 0 06/01/2024 Generated for Valentina leblanc/Fabio/eTransmitting on: 0 11/23/2024 08:04 AM EDT History and Physical Notes * [...] scaling patch of skin on the right jainism Cardiology Lungs: clear, no rales or wheezes HEENT: unremarkable Heart sounds: RRR, normal S1, S2 Extremities: no leg edema Peripheral pulses: 2 plus bilateral General Appearance: pleasant, NAD
--- OUTSIDE RECORDS SUMMARY | 2024-11-07 06:00 | XMS_ITS ---
Author Organization [facility] Address [address] [facility] [address] [place] [id number] Care Team Providers Care Quality Assurance Manager Name Role Phone Artem Osborne Primary [...] Interpretation:Normal Performing Lab: Notes/Report: Test performed by [facility] [address] [place] [address] [place] [address] Kai Kaplan MD, Licensed Insurance Agent CLIA: [id number] Thyroxine Free (free T4) 1.49 0.86-1.76 ng/dL P-TSH Reviewed date:11/08/2024 03:16:25 PM Interpretation:7.8 Performing Lab: Notes/Report: Test performed by [facility] [address] [place] [address] [address], [place] [address] Kai Kaplan MD, Licensed Insurance Agent CLIA: [id number] TSH 7.80 0.43-5.25 mU/L TEN-UTI panel Reviewed [...] 11/07/2024 Encounters Encounter Location Date Provider Diagnosis [facility] [address] [facility] [address] [place] [id number] 11/07/2024 Artem Osborne Acute UTI N39.0 ; [...] [address], [address], [place], [id number], Progress Notes * Satinder MARINOOB:1945 (79 yo F)Acc No.[id number]:11/07/2024 Progress Notes Patient: Pebbles MANCIA Provider: Teagan Osborne M.D. :1945 A ge:79 Y S ex:Female Date:11/07/2024 Address:[address] [place] [address], [place], [id number] Subjective: * Chief Complaints: * 1 . [...] G 2211 Complex e/[place], [address] Urinalysis, no micro, 1036F TOBACCO NON- USER, G8950 PREHTN/HTN BP DOC INDCD F/U DOC, G8752 MOST RECENT SYSTOLIC BP < 140MM HG, G8754 MOST RECENT DIASTOLIC BP < 90MM HG * Follow Up: 6 Months * Images: Billing Information: * Visit Code: 50474 Office Visit, Est Pt., Level 4. * Procedure Codes: G2211 Complex e/[place]. [address] Urinalysis, no micro. 1036F TOBACCO NON-USER. G8950 PREHTN/HTN BP DOC INDCD F/U DOC. G8752 MOST RECENT SYSTOLIC BP < 140MM HG. G8754 MOST RECENT DIASTOLIC BP < 90MM HG. * Electronic signature of Yusra Osborne MD on 11/22/2024 at 10:06 AM EDT Sign off status: Pending * Provider: Teagan Osborne M.D. Date: 11/07/2024 Generated for Valentina leblanc/Fagregoriog/eTransmitting on: 11/22/2024 10:06 AM EDT History and Physical [...]
--- OUTSIDE RECORDS SUMMARY | 2024-11-07 06:00 | XMS_ITS ---
Author Organization [facility] Address [address] [facility] [address] [place] [id number] Care Team Providers Care Pulmonary Fellow Name Role Phone Artem Osborne Primary Care Provider [phone] Allergies No Known Allergies Results Component Value Reference Range Notes Urinalysis - Inhouse Reviewed date:11/07/2024 11:58:24 AM Interpretation: Performing Lab: Notes/Report: Color/Clarity Yellow/Cloudy Leuk 1+ Nitrite Pos Urobili 16 Protein Trace pH 7.5 Blood Trace-Intact Sp. Gr. 1.015 Ketone Neg Bili Neg Gluc Neg P-T4 Free (thyroxine) Reviewed date:11/08/2024 03:16:25 PM Interpretation:Normal Performing Lab: Notes/Report: Test performed by [email or web address] [address] [place] [address] [place] [address] Kai Kaplan MD, Railroad Watchman CLIA: [id number] Thyroxine Free (free T4) 1.49 0.86-1.76 ng/dL P-TSH Reviewed date:11/08/2024 03:16:25 PM Interpretation:7.8 Performing Lab: Notes/Report: Test performed by [email or web address] [address] [place] [address] [address], [place] [address] Kai Kaplan MD, Railroad Watchman CLIA: [id number] TSH 7.80 0.43-5.25 mU/L TEN-UTI panel Reviewed [...] 11/07/2024 Encounters Encounter Location Date Provider Diagnosis [facility] [address] [facility] [address] [place] [id number] 11/07/2024 Artem Osborne Acute UTI N39.0 ; [...] [address], [address], [place], [place], [phone], Progress Notes * Satinder MARINOOB:1945 (79 yo F)Acc No.[id number]:11/07/2024 Progress Notes Patient: Pebbles MANCIA Provider: Teagan Osborne M.D. :1945 A ge:79 Y S ex:Female Date:11/07/2024 Address:[address] [place] [address], [place], [id number] Subjective: * Chief Complaints: * 1 . [...] G 2211 Complex e/[place], [address] Urinalysis, no micro, 1036F TOBACCO NON- USER, G8950 PREHTN/HTN BP DOC INDCD F/U DOC, G8752 MOST RECENT SYSTOLIC BP < 140MM HG, G8754 MOST RECENT DIASTOLIC BP < 90MM HG * Follow Up: 6 Months * Images: Billing Information: * Visit Code: 26389 Office Visit, Est Pt., Level 4. * Procedure Codes: G2211 Complex e/[place]. [address] Urinalysis, no micro. 1036F TOBACCO NON-USER. G8950 PREHTN/HTN BP DOC INDCD F/U DOC. G8752 MOST RECENT SYSTOLIC BP < 140MM HG. G8754 MOST RECENT DIASTOLIC BP < 90MM HG. * Electronic signature of Yusra Osborne MD on 11/23/2024 at 08:04 AM EDT Sign off status: Pending * Provider: Teagan Osborne M.D. Date: 11/07/2024 Generated for Valentina leblanc/Fagregoriog/eTransmitting on: 11/23/2024 08:04 AM EDT History and Physical [...]
[2024-11-22] VITALS (14 sets, daily range): BP systolic 107–143; BP diastolic 42–69; PULSE 61–99; RESP 16–18; TEMP 36.6–37.9; O2SAT 91–100; BMI 30.2; BMI 32.0
--- OUTSIDE RECORDS SUMMARY | 2024-11-22 10:06 | XMS_ITS | Data Portability ---
Author Organization [facility] Address [address] [place] [address] Care Team Providers Care Envelope Sealer Operator Name Role Phone REZA POLK Referring Provider Assessment Encounter Date Assessment Date Assessment LastModified by Organization Details LastModified Time 09/23/2020 09/23/2020 HPI: Ms. Jackson is a 75yo female with history of radioactive iodine treatment for thyroid ablation and shingles on her right scalp who presents today for evaluation of neck pain with scalp and shoulder pain with new cervical CT [facility]. She says her pain is located in her neck and radiates across her trapezius to her right shoulder and to the right side of her head, accompanied by severe neck stiffness. She says it started in December and has been slowly worsening since. Also endorses burning and tingling sensation on the right side of her scalp in the same distribution that she had shingles and recurrence of shingles in the distant past. She has done physical therapy, she has tried Lyrica, Celebrex, C5-6 OMEGA 1, occipital cervical nerve block 2, and none of these interventions she says made any significant difference for her pain. She does find some small relief with ibuprofen and tramadol. Denies upper extremity symptoms aside from right shoulder pain. Denies gait issues, low back issues, lower extremity issues. PHYSICAL EXAM: No strength deficits noted. Muscles feel tight in neck and paraspinal cervical region. No hyperreflexia, negative Todd's IMAGING: I have reviewed the images personally with Dr. Mann and read the radiologist's report. Cervical CT: Degenerative changes noted at multiple levels, worst at C3-4, not quite as severe at C5-6 and C6-7. Unable to accurately assess degree of stenosis on this type of exam. ASSESSMENT: Dr. Mann also saw this patient. Patient has exhausted conservative measures. Suspect a C4 radiculopathy secondary to degenerative changes seen at C3-4. Possible that this may be a surgical issue that we can help with, need MRI to assess and possible surgical planning. Suspect her right scalp pain is reflective of a postherpetic neuralgia but seems to be not responding well to Lyrica. PLAN: Cervical MRI without contrast. Told her to call us 5 days after she gets that and we would discuss results, we would try call her. She wants to get it done in [place] where she lives and send it to us. Would also recommend having it done through [facility] so that it can be sent electronically to us. Possible keyhole foraminotomy to address right-sided cervical stenosis. Portions of this note have been dictated with voice recognition technology and may include printed circuit board designer errors. Addendum 09/30/20 Anderson Hayes PA-C after reviewing the MRI, it is clear that there is not major stenosis in her cervical spine which is likely causing her symptoms. At worst there is somewhat moderate stenosis at C3-4, and Dr. Mann does not recommend surgery since it is unclear if it would provide benefit. Recommend that she talk to Dr. Sommer about other possible pain management strategies. [email or web address] Not available 09/30/2020 16:47:39 Plan of Treatment Reminders Order Date Submit Date Provider Last Modified By Organization Details Last Modified Time Details Appointments None record ed. Lab None record ed. Referral None record ed. Procedures None record ed. Surgeries None record ed. Imaging None record ed. Medication Orders None record ed. Patient TargetsNo targets recorded. Patient InstructionsNo instructions recorded. Reason for Referral None Reported. Results Created Date Observation Date Name Description Value Unit Range Abnormal Flag Note LastModifiedBy Organization Detail LastModifiedTime 09/25/1907/29/2020 CT, cervi celia spine , w/o contr ast No observ ation record ed. BARCODE Not Available 2020 08:33:12 09/30/19 21 09/26/2020 MRI, cervi celia spine , w/o contr ast No observ ation record ed. [email or web address] [facility] [address], [place], [address], 10/07/2020 14:03:05 Result Notes None recorded. Procedures Surgical History Date Name Laterality Status Provider Name and Address Organization Details Recorded Time Removal of ovary(s) completed [facility] 09/23/2020 08:37:02 Appendectomy completed [facility] 09/23/2020 08:37:12 Cholecystectomy completed [facility] 09/23/2020 08:37:19 Thyroid Surgery completed [facility] 09/23/2020 08:37:27 Imaging Results None recorded. Procedure Notes None recorded. Medical Equipment None Reported. Allergies No known drug allergies Medications Name Sig Start Date Stop Date Status Note LastModified by Organization Details LastModified Time losartan 100 mg tablet Take 1 tablet every day by oral route. active Not Available Not Available No t Available Vanos 0.1 % topical cream Two times a day 2007 active Instructio ns: apply to affected areas bid x 2-3 weeks prn;Freque ncy: bid;Medica tion Descriptio n: fluocinoni de topical; Dosage:as directed; Route:topi celia; refills:2; Quantity:6 0gms cream Not Available Not Available Not Available pregabalin 75 mg capsule Take 1 capsule twice a day by oral route. active Not Available Not Available No t Available atorvastat in active Not Available Not Available Not Available levothyrox ine active Not Available Not Available Not Available tramadol active Not Available Not Avai lable Not Available Vitals Date Recorded Body height Body mass index (BMI) Body weight Systolic And Diastolic Provider Name and Address Organization Details Last Updated DateTime 09/23/2020 157.48 cm 32 kg/m2 64154.66 g 120/80 mm[Hg] [facility] 09/23/2020 08:40:21 Social History None recorded. Functional Status None recorded. Mental Status None recorded. Family History Relationship Description Onset Age of this Age Resolved Age Notes LastModified by Organization Details LastModified Time Unspecified Relation Malignant neoplastic disease [email or web address] Not available 09/23 08:36:27 Unspecified Relation Myocardial infarction [email or web address] Not available 09/06 08:36:37 Medical History Condition Response Hypertension Y Hyperthyroidism Y High Cholesterol Y Gynecological HistoryNo gynecological history recorded. Obstetrics History GPAL:G 0 P 0 0 0 0 Past Encounters Encounter ID Performer Location Encounter Start Date Encounter Closed Date Diagnosis/Indication Diagnosis SNOMED-CT Code Diagnosis ICD10 Code Diagnosis Note [id number] ANDERSON HAYES PA-C [facility] [address] [place] [address] 09/23/2020 08:28:56 09/25/2020 15:02:51 Cervical radiculopathy 00399888 M54.12 Health Concerns Section Related Observation LastModified by Organization Detai ls LastModified Time None Recorded Concern Status LastModified by Organization Details LastModified Time None Recorded Advance Directives Directive None Recorded Payers Insurance Date Sequence Insurance Name Policy Number Policy Land Covered Member ID Land Member ID Guarantor Name 09/20/2020 1 [place] Pebbles Jackson [id number] Pebbles Weinsteinkevin 09/23/2020 2 [employer] (MEDICARE SUPPLEMENT) Pebbles Narvaez Renetta [id number] Pebbles Jackson Notes Date Note Type Note Provider Name and Address Organization Details Recorded Time 09/23/2020 text/html Ms. Jackson is a 75yo female with history of radioactive iodine treatment for thyroid ablation and shingles on her right scalp who presents today for evaluation of neck pain with scalp and shoulder pain with new cervical CT [facility]. She says her pain is located in her neck and radiates across her trapezius to her right shoulder and to the right side of her head, accompanied by severe neck stiffness. She says it started in December and has been slowly worsening since. Also endorses burning and tingling sensation on the right side of her scalp in the same distribution that she had shingles and recurrence of shingles in the distant past. She has done physical therapy, she has tried Lyrica, Celebrex, C5-6 OMEGA 1, occipital cervical nerve block 2, and none of these interventions she says made any significant difference for her pain. She does find some small relief with ibuprofen and tramadol. Denies upper extremity symptoms aside from right shoulder pain. Denies gait issues, low back issues, lower extremity issues. ANDERSON HAYES PA-C [address] [place], [address], [facility] 09/30/2020 16:47:44 OBGyn Episode No OBEpisode recorded.
--- OUTSIDE RECORDS SUMMARY | 2024-11-22 10:06 | XMS_ITS | Patient Health Record ---
Author Organization [facility] Address [address] [place] [address] Care Team Providers Care Rest Room Attendant Name Role Phone Artem Osborne Primary Care Provider Unavailobed e Loco Bansal Unavailable [phone] Migration, Provider Unavailable Unavailable Allergies No Known [...] Status Risk Notes Problem Cervical root syndrome (561220763) Cervical root disorders, not elsewhere classified (G54.2) Active confirmed Problem Cervical spondylosis without myelopathy (442500917) Spondylosis without myelopathy or radiculopathy , cervical region (M47.812) Active confirmed Problem Thoracic spondylosis without myelopathy (062234607) Spondylosis without myelopathy or radiculopathy , thoracic region WRM (M47.814) Active confirmed Problem Occipital neuralgia (00798242) Occipital neuralgia WRM (M54.81) Active confirmed Problem 797012271 director long term care (current) drug therapy WRM (Z79.899) Active confirmed Problem 8182843 Brachial plexopathy (G54.0) Active confirmed Problem Trigeminal neuralgia (76528175) Trigeminal neuralgia (G50.0) Active confirmed Problem Brachial plexus disorder (5417361) Brachial plexopathy WRM (G54.0) Active confirmed Problem Cervical spondylosis without myelopathy (110575030) Cervical spondylosis without myelopathy (M47.812) Active confirmed [...] an emphasis on an RFA to produce senior care pain management symptoms. Problem 69584433 Cervical spinal stenosis (M48.02) Active confirmed Encounters Encounter Location Date Provider Diagnosis [facility] [address] [place] [address] 04/14/2024 Provider Migration Plan Of Treatment Pending Test Test Name Order Date CMBB - Cervical 2-Level - Right (96924-6 ) 10/20/2021 Urine Drug Testing 09/07/2021 Future Test Test Name Order Date CMBB - Cervical 2-Level - Right (08648-3 ) 09/07/2021 TMBB - Thoracic 2-Level - Right (02599-9 ) 09/11/2021 TMJ Injection w/ fluoro - Right () 09/11/2021 Insurance Providers Payer Name Payer Address Payer Phone Subscriber Number Group Number Insured Name Patient Relationship to Insured Coverage Start Date Coverage End Date [place] [address] [place] [address] [id number] Pebbles Jackson Self - patient is the insured 2 [facility] Medicare Supplement [facility] CLAIM [employer] [address] [place] [address] [id number] Pebbles Jackson Self - patient is the [...]
--- OUTSIDE RECORDS SUMMARY | 2024-11-22 10:07 | XMS_ITS | Patient Health Record ---
[facility] Address [address] [facility] [address] [place] [id number] Care Team Providers Care Seating Captain Name Role Phone [place] Artem Primary Care Provider Allergies No Known Allergies Results Component Value Reference Range Notes P-Comprehensive Metabolic Pa hay (CMP) Reviewed date:06/04/2024 08:39:24 AM Interpretation:bun 25, alk phos 136 Performing Lab: Notes/Report: Test performed by [facility] [address] , [address], [place] [address] Kai Kaplan MD, Stewardesses Teacher CLIA: [id number] Sodium 138 135-145 mmol/L Potassium 4.2 3.5-5.3 [...] Normal Performing Lab: Notes/Report: Test performed by [facility] [address] [place] [address] , [address], [place] [address] Kai Kaplan MD, Stewardesses Teacher CLIA: [id number] Thyroxine Free (free T4) 1.56 0.86-1.76 ng/dL P-Lipid Panel Reviewed date:06/04/2024 08:39:24 AM Interpretation:non-hdl 144 Performing Lab: Notes/Report: Test performed by [facility] [address] [place] [address] , [address], [place] [address] Kai Kaplan MD, Stewardesses Teacher CLIA: [id number] Cholesterol 199 <200 mg/dL Triglycerides 90 <150 [...] Interpretation:6.44 Performing Lab: Notes/Report: Test performed by [facility] [address] [place] [address] , [address], [place] [address] Kai Kaplan MD, Stewardesses Teacher CLIA: [id number] TSH 6.44 0.43-5.25 mU/L P-Microalbumin/Creatinine, R andom Urine Sample Reviewed date:06/04/2024 08:39:24 AM Interpretation: Normal Performing Lab: Notes/Report: Test performed by [facility] [address] [place] [address] , [address], [place] [address] Kai Kaplan MD, Stewardesses Teacher CLIA: [id number] Albumin/Creatinine Ratio, Urine 22 0-30 ug/mg Microalbumin, Urine, Random 1.8 Creatinine, Urine 80.1 Urinalysis - Inhouse Reviewed date:11/07/2024 11:58:24 AM Interpretation: Performing Lab: Notes/Report: Color/Clarity Yellow/Cloudy Leuk 1+ Nitrite Pos Urobili 16 Protein Trace pH 7.5 Blood Trace-Intact Sp. Gr. 1.015 Ketone Neg Bili Neg Gluc Neg P-T4 Free (thyroxine) Reviewed date:11/08/2024 03:16:25 PM Interpretation:Normal Performing Lab: Notes/Report: Test performed by [facility] [address] [place] [address] , [address], [place] [address] Kai Kaplan MD, Stewardesses Teacher CLIA: [id number] Thyroxine Free (free T4) 1.49 0.86-1.76 ng/dL P-TSH Reviewed date:11/08/2024 03:16:25 PM Interpretation:7.8 Performing Lab: Notes/Report: Test performed by [facility] [address] [place] [address] , [address], [place] [address] Kai Kaplan MD, Stewardesses Teacher CLIA: [id number] TSH 7.80 0.43-5.25 mU/L TEN-UTI panel Reviewed [...] Vaccine Route Administration Date Status Comme nts yOjzeqpw-eyugjybkd-chwzpwe e pts. IM Intramuscular 04/09/2011 Administered Prevnar (PCV20) IM Intramuscular 05/25/2022 Administered Prevnar (PCV13) IM Intramuscular 08/06/2013 Administered PNEUMOVAX 23 VACCINE IM Intramuscular 07/29/2015 Administe red Fluzone High Dose (65yr and older) Unknown 03/19/2022 Administered Fluzone High Dose (65yr and older) Unknown 02/16/2023 Administered COVID 19 Moderna Unknown 05/14/2020 Administered COVID 19 Moderna Unknown 06/11/2020 Administered COVID 19 Moderna Unknown 01/21/2021 Administered COVID 19 Moderna Unknown 08/08/2021 Administered Problems Problem Type SNOMED Code ICD Code Onset Dates Problem Status W/U Status Risk Notes Problem Solitary nodule of lung (304963753) Lung nodule (R91.1) Active confirmed Problem Cervical radiculopathy (38745324) Cervical radiculopathy (M54.12) Active confirmed Problem Pure hypercholesterolemia (319284833) Pure hypercholesterolemia (E78.0) Active confirmed Problem Occipital neuralgia (82884961) Occipital neuralgia (M54.81) Active confirmed Problem Cervical disc diseas e (726626478) Cervical disc disease (M50.90) Active confirmed Problem Acquired hypothyroidism (031320502) Acquired hypothyroidism (E03.9) Active confirmed Problem Obesity (068497250) Non morbid o besity, unspecified obesity type (E66.9) Active confirmed Problem Sacroiliitis (79748713) Sacroiliitis (M46.1) Active confirmed Problem Sciatica (21850033) Right sided sciatica (M54.31) Active confirmed Problem Postablative hypothyroidism (793736255) Postablative hypothyroidism (E89.0) Active confirmed Problem Disorder of neck (366644321) Disorder of neck (M53.82) Active confirmed Problem Essential hypertension (18863705) Essential hypertension, hypertension with unspecified goal (I10) Active confirmed Problem Pharyngeal dysphagia (47064617006038) Pharyngeal dysphagia (R13.13) Active confirmed Problem Pure hypercholesterolemia (967109338) Pure hypercholesterolemia (E78.00) Active confirmed Problem Arthropathy of cervical spine facet joint (disorder) (821138250) Facet arthropathy, cervical (M47.812) Active confirmed Vital Signs Heart Rate 74 /min 11/07/2024 Blood pressure diastolic 78 mm Hg 11/07/2024 Height 60.50 in 11/07/2024 Blood pressure systolic 130 mm Hg 11/07/2024 Weight 164 lbs 11/07/2024 BMI 31.5 kg/m2 11/07/2024 Encounters Encounter Location Date Provider Diagnosis [facility] [address] [place], [place] [id number] 06/01/2024 Artem Arbuckle Essential hypertensi on, hypertension with unspecified goal I10 ; Pure hypercholesterolemia E78.00 ; Acquired hypothyroidism E03.9 and Rash R21 [facility] [address] [place], [place] [id number] 11/07/2024 Artem Arbuckle Acute UTI N39.0 ; Es sential hypertension, hypertension with unspecified goal I10 ; Acquired hypothyroidism E03.9 and Non morbid obesity, unspecified obesity type E66.9 [facility] [address] [place], [place] [id number] 11/19/2024 Artem Osborne [facility] [address] [place], [place] [id number] 11/30/2023 Artem Osborne [facility] [address] [place], [place] [id number] 06/04/2024 Artem Osborne [facility] [address] [place], [place] [id number] 11/08/2024 Artem Osborne Acquired hypothyroid ism E03.9 [...] 11/08/2024 Acquired hypothyroid ism (ICD-10 - E03.9) 06/01/2024 Acquired hypothyroid ism (ICD-10 - E03.9) 11/08/2024 Essential hypertensi on, hypertension with unspecified goal (ICD-10 - I10) 11/07/2024 Acquired hypothyroid ism (ICD-10 - E03.9) 11/07/2024 Non morbid obesity, unspecified obesity type (ICD-10 - E66.9) 06/01/2024 Rash (ICD-10 - R21) Plan Of Treatment Next Appt Details Provider Name:Artem paul, 05/13/2025 10:15:00 AM, [address] [facility], [address], [place], [place], [id number], Insurance Providers Payer Name Payer Address Payer Phone Subscriber Number Group Number Insured Name Patient Relationship to Insured Coverage Start Date Coverage End Date MEDICARE PART B [address] [address] [place] [address] [id number] Pebbles Jackson Self - patient is the insured [employer] [address] [place] [address] [phone] [id number] Jozef Jackson Spouse - patient is the [...]
--- NOTE | 2024-11-22 10:17 | CT_ITS ---
FINAL REPORT TECHNIQUE: Noncontrast exam This study was performed with techniques to keep radiation doses as low as reasonably achievable, (ALARA). Individualized dose reduction techniques using automated exposure control or adjustment of mA and/or kV according to the patient's size were employed. CLINICAL HISTORY: severe headache COMPARISON: 03/13/2023 FINDINGS: CT HEAD: Mild global atrophy is noted as well as mild chronic microvascular changes. There are chronic lacunar infarcts in the left basal ganglia, stable since the prior exam. No acute intracranial abnormality is identified. Bone windows show no evidence of fracture. IMPRESSION: No acute findings Reviewed, Interpreted and Dictated by Ann-Marie Lazaro MD Transcribed by Adriana Thapa Authenticated and [facility]
--- NOTE | 2024-11-22 10:17 | CT_ITS ---
FINAL REPORT TECHNIQUE: Oral and IV contrast enhanced exam This study was performed with techniques to keep radiation doses as low as reasonably achievable, (ALARA). Individualized dose reduction techniques using automated exposure control or adjustment of mA and/or kV according to the patient's size were employed. CLINICAL HISTORY: Generalized abdominal pain, fever COMPARISON: 04/30/2023 FINDINGS: CT ABDOMEN PELVIS: Abdomen: Lung bases are clear. The gallbladder is surgically absent. Liver contains a small hepatic cyst. The spleen, pancreas and adrenal glands are unremarkable. There is a lobular hypodense lesion in the posterior left kidney, likely a complex cyst, slightly improved in size measuring 18 mm, was previously 22 mm. There is a stable nonobstructing left renal stone. No bowel obstruction or fluid collection is seen. Pelvis: The appendix is not visualized. Pelvic bowel loops are unremarkable. No fluid collection or adenopathy is seen. There is mild diverticulosis of the descending colon. Pelvic floor prolapse is noted. The bladder is unremarkable. IMPRESSION: 1. No acute findings. 2. Stable left renal stone disease. Reviewed, Interpreted and Dictated by Ann-Marie Lazaro MD Transcribed by Adriana Thapa Authenticated and [facility]
[2024-11-22 10:23] LABS: Hematocrit 37.3 % (37.0-47.0); Hemoglobin 13.0 g/dL (12.2-16.2); Immature Granulocytes % 0.7 %; Mean Corpuscular HGB Conc 34.9 g/dL (31.8-35.4); Mean Corpuscular Hemoglobin 31.3 pg (27.0-31.2); Mean Corpuscular Volume 89.9 fl (81-99); Nucleated Red Blood Cells % 0 %; Platelet Count 228 K/mm3 (142-424); Red Blood Count 4.15 M/mm3 (4.20-5.40); Red Cell Distribution Width-SD 45.5 fL; White Blood Count 17.6 K/mm3 (4.8-10.8)
[2024-11-22 10:23] LABS: Microscopic, Urine URINE MICROSCOPIC (MICROSCOPIC)
[2024-11-22] MEDS: ONDANSETRON 4MG/2ML VIAL 4 MG IV (10:24)
[2024-11-22] MEDS: ACETAMINOPHEN 500MG TAB 1000 MG PO ×2 (10:24→16:17)
[2024-11-22 10:26] LABS: Chloride 99 mmol/L (98-107)
[2024-11-22 10:27] LABS: Albumin Level 4.4 g/dl (3.5-5.0); Potassium 3.7 mmoL/L (3.5-5.1); Sodium 134 mmol/L (136-145)
[2024-11-22 10:27] LABS: Adenovirus,PCR Not Detected (NotDetected); Chlamydophila Pneumoniae, PCR Not Detected (NotDetected); Coronavirus 19, PCR Not Detected (NotDetected); Coronovirus HKU1,PCR Not Detected (NotDetected); Influenza A, PCR Not Detected (NotDetected); Influenza AH1, 2009 Not Detected (NotDetected); Influenza AH1, PCR Not Detected (NotDetected); Influenza AH3,PCR Not Detected (NotDetected); Influenza B, PCR Not Detected (NotDetected); Mycoplasma Pneumoniae, PCR Not Detected (NotDetected); Parainfluenza 1, PCR Not Detected (NotDetected); Parainfluenza 2, PCR Not Detected (NotDetected); Parainfluenza 3, PCR Not Detected (NotDetected); Parainfluenza 4, PCR Not Detected (NotDetected)
[2024-11-22 10:28] LABS: Bilirubin,Urine Negative (Negative); Color,Urine YELLOW (Yellow); Glucose,Urine (UA) Negative (Negative); Ketones,Urine Negative (Negative); Leukocyte Esterase,Urine 3+ (Negative); PH,Urine 8.5 (5.0-8.5); Protein,Urine 2+ (Negative); Specific Gravity, Urine 1.010 (1.005-1.030); Urobilinogen,Urine 0.2 EU/dl (0.2)
[2024-11-22 10:29] LABS: Lactate Venous 2.0 mmol/L (0.4-2.0); VBG HCO3 25.2 mmol/L (23-30); VBG PCO2 38.1 mmol/L (35-51); VBG PH 7.44 mmol/L (7.31-7.41); VBG PO2 71.6 mmol/L (28-40)
[2024-11-22 10:30] LABS: Alanine Aminotransferase 17 U/L (12-78); Albumin/Globulin Ratio 1.5 (1.1-1.8); Alkaline Phosphatase 108 U/L (38-126); Anion Gap 11.7 mEq/L (5-15); Aspartate Amino Transferase 32 U/L (14-36); Bilirubin,Total 1.7 mg/dl (0.2-1.3); Blood Urea Nitrogen 19 mg/dl (7-17); Calcium 8.8 mg/dl (8.4-10.2); Carbon Dioxide 27 mmol/L (22.0-30.0); Creatinine Clearance Estimated 53 mL/min (50-200); Creatinine,Serum 0.80 mg/dl (0.52-1.04); Estimated Glomerular Filt Rate 69 ml/min (>60); GFR (African American) 84 ML/MIN (>60); Globulin 3.0 g/dL (1.3-3.2); Glucose 136 mg/dl (74-100); Lipase 46 U/L (23-300); Magnesium 1.3 mg/dl (1.6-2.3); Total Protein,Serum 7.4 g/dl (6.3-8.2)
[2024-11-22 10:36] LABS: C-Reactive Protein 39.9 mg/L (0-4)
[2024-11-22 10:44] LABS: Bacteria,Urine 3+ /lpf; RBC,Urine Occasional #/hpf (0-3); WBC,Urine 20-50 #/hpf (0-3)
[2024-11-22] MEDS: MAGNESIUM SULFATE IN WATER 2 GM/50 ML PIGGYBACK IV (10:45)
[2024-11-22] MEDS: SODIUM CHLORIDE 0.9% 10ML SYR (RAD ONLY) 10 ML IV (11:09)
[2024-11-22] MEDS: IOPAMIDOL-370 (76%);100ML BOTTLE 75 ML IV (11:09)
--- NOTE | 2024-11-22 11:14 | HMH.EDGENADL ---
Discharge Plan Disposition Patient Disposition: Admitted Prescriptions Prescriptions: No Action atorvastatin 20 mg tablet 20 mg PO DAILY levothyroxine 75 mcg tablet 75 mcg PO DAILY losartan 100 mg tablet 100 mg PO DAILY hydrochlorothiazide 25 mg tablet 25 mg PO DAILY Referrals Follow up/Referrals: Artem Osborne MD [Primary Care Provider, Medical] - See instructions Clinical Impressions Clinical Impression: Sepsis, Acute UTI, Hypomagnesemia Instructions Patient Instructions: DI for Acute Abdominal Pain Print Language Print Language: Tunisian Discharge ED Provider: Angelo Vazquez General Adult HPI General Chief complaint: Abdominal Pain Stated complaint: fever, headache, feels like UTI Time Seen by Provider: 11/22/24 10:07 Mode of Arrival: Ambulatory Source of Information: Patient Description of Symptoms (Recalled from ER Triage Doc. by RN): patient states she has had a headache abdominal pain and nausea since lastnight. recently on antibiotic for uti just got off antibitoic 3 days ago History of Present Illness HPI narrative: Pebbles Jackson is a 79-year-old male with a history of hypertension, hyperlipidemia, mitral stenosis burning with urination, abdominal pain who presents to the emergency department for complaints of burning with urination, abdominal pain, fever, headache. Patient states that 2 weeks ago, she was treated for urinary tract infection and has had a total of 2 rounds of antibiotics, however she is still having significant burning with urination. She states that today, she was woken from sleep from severe headache and states that she normally does not get headaches. She describes a headache is in her forehead but denies any nasal congestion or runny nose. She denies any cough or chest pain. She reports some mild suprapubic abdominal pain. She is concerned that she still has a kidney infection. She has not taken any medications prior to arrival. She reports subjective fevers at home. Related Data Home Medications ?Medication ?Instructions ?Recorded ?Confirmed hydrochlorothiazide 25 mg tablet 25 mg PO DAILY Fluid 04/29/21 11/05/24 losartan 100 mg tablet 100 mg PO DAILY BLOOD PRESSURE 04/29/21 11/05/24 atorvastatin 20 mg tablet 20 mg PO DAILY 11/30/23 11/05/24 levothyroxine 75 mcg tablet 75 mcg PO DAILY 11/30/23 11/05/24 Allergies Allergy/AdvReac Type Severity Reaction Status Date / Time No Known Allergies Allergy Verified 11/05/24 13:18 [facility] Disclaimer: The information contained in this section may have been updated after the patient was seen, as this information can be updated by other users. Medical History UTI (urinary tract infection) Myocardial ischemia of inferior surface of left ventricle Coronary artery disease Coronary artery calcification seen on ct chest Coronary artery calcification seen on CT scan Abnormal myocardial perfusion study Mitral regurgitation Mitral stenosis Aortic regurgitation Aortic stenosis Abnormal MRI Hx of thyroid irradiation Hypothyroid Hyperlipidemia Hypertension Surgical History History of esophagogastroduodenoscopy (EGD) History of colonoscopy Hx of laparoscopy appendectomy lesions removed X2 Hx of bilateral oophorectomy History of cholecystectomy History of appendectomy Family History Other Family history of acute heart failure Family history of cancer Family history of hypertension Family history of myocardial infarction Social History Smoking Status: Never smoker alcohol intake: never substance use type: denies use current occupational status: retired Travel in the last 8 weeks?: Inside the [employer] household members: spouse housing: house lives independently: Yes marital status: education level: college current occupational exposures/hazards: No caffeine: Yes special lawson needs: No agree to transfusion: No do you feel safe at home: Yes victim of physical abuse: No victim of emotional abuse: No victim of sexual abuse: No would you like helpful sources: No Have you lived/traveled outside [place] in past 30 days?: No Contact w/someone who lives/traveled outside [place] past 30 days?: No Exposure to someone with infectious disease in past 14 days?: No Do you have a fever (greater than 100.4 F or 38 C)?: No Have you tested positive for COVID-19?: No Exposed to someone with COVID-19 in past 14 days?: No Do you have a sore throat?: No Do you have a cough?: No Do you have any weakness?: No Do you have any diarrhea?: No Are you experiencing any unusual bleeding?: No Do you have any muscle aches/pain?: No Do you have any abdominal pain?: No Are you experiencing loss of taste or smell?: No Other Medical History Have you received the Flu Vaccine for this season: Yes Have you received the Pneumonia Vaccine: Yes ROS Obtained: Yes Systems reviewed as appropriate & no additional complaints except as documented Physical Exam General General appearance: alert and in no apparent distress Comment: Ill but nontoxic-appearing Head Head exam: atraumatic Eye Eye exam: Present normal appearance and PERRL ENT ENT exam: Present normal external ear exam Neck Neck exam: Present full ROM Chest Chest inspection: Present symmetric chest wall rise Respiratory Respiratory exam: Present normal lung sounds bilaterally; Absent respiratory distress, wheezes or stridor Cardiovascular Cardiovascular exam: Present normal rhythm and tachycardia Abdominal Exam Abdominal exam: Present soft and tenderness (Suprapubic, left upper quadrant); Absent guarding Extremities Exam Extremities exam: Present normal inspection Back Exam Back exam: Present normal inspection Neurological Exam Neurological exam: Present alert, oriented X3 and other (No focal neurological deficits) Psychiatric Psychiatric exam: Present normal affect Skin Skin exam: Present warm and dry Medical Decision Making Medical Records Screening: Per USPSTF and CDC recommendations, given the prevalence of disease in our region, it is our hospital?s policy to screen for HIV and viral Hepatitis for all patients aged 18 and over and those with ongoing risk factors. Yung Inquiry Pt receiving controlled substance: No Vital Signs: 11/22/24 09:57 11/22/24 10:00 11/22/24 10:30 Temperature 100.1 F H Temperature Source Oral Pulse Rate 91 H 96 H Pulse Rate [Right Radial] 99 H Respiratory Rate 18 Blood Pressure 125/62 124/51 L Blood Pressure [Right Arm] 143/64 H Blood Pressure Mean [Right Arm] 90 Blood Pressure Source [Right Arm] Automatic Cuff Blood Pressure Position [Right Arm] Supine 02 Sat by Pulse Oximetry 96 95 96 Oxygen Delivery Method Room Air Room Air Room Air 11/22/24 11:24 11/22/24 11:30 11/22/24 12:00 Temperature Temperature Source Pulse Rate 76 73 77 Pulse Rate [Right Radial] Respiratory Rate Blood Pressure 117/48 L 119/49 L 121/52 L Blood Pressure [Right Arm] Blood Pressure Mean [Right Arm] Blood Pressure Source [Right Arm] Blood Pressure Position [Right Arm] 02 Sat by Pulse Oximetry 97 91 L 100 Oxygen Delivery Method Room Air Room Air Lab Data Lab Results 11/22/24 09:48: Urine Color Yellow, Urine Appearance Cloudy, Urine pH 8.5, Ur Specific [place] 1.010, Urine Protein 2+ A, Urine Glucose (UA) Negative, Urine Ketones Negative, Urine Blood 1+ A, Urine Nitrate Positive A, Urine Bilirubin Negative, Urine Urobilinogen 0.2, Ur Leukocyte Esterase 3+ A, Urine RBC Occasional, Urine WBC 20-50, Ur Squamous Epith Cells 3-5, Urine Bacteria 3+ 11/22/24 10:10: WBC 17.6 H, RBC 4.15 L, Hgb 13.0, Hct 37.3, MCV 89.9, MCH 31.3 H, MCHC 34.9, RDW 13.8, Plt Count 228, MPV 9.4, Neut % (Auto) 91.9 H, Lymph % (Auto) 4.7 L, [place] % (Auto) 2.5, Eos % (Auto) 0.0 L, Baso % (Auto) 0.2, Neut # (Auto) 16.2 H, Lymph # (Auto) 0.8, [place] # (Auto) 0.4, Eos # (Auto) 0.0, Baso # (Auto) 0.0, VBG pH 7.44 H, VBG pCO2 38.1, VBG pO2 71.6 H, VBG HCO3 25.2, VBG Total CO2 26.4, VBG O2 Saturation 94.6 H, VBG Base Excess 1.0, VBG Lactic Acid 2.0, Sodium 134 L, Potassium 3.7, Chloride 99, Carbon Dioxide 27, Anion Gap 11.7, BUN 19 H, Creatinine 0.80, Estimated Creat Clear 53, Estimated GFR 69, Est GFR ( Amer) 84, Glucose 136 H, Calcium 8.8, Magnesium 1.3 L, Total Bilirubin 1.7 H, AST 32, ALT 17, Alkaline Phosphatase 108, C-Reactive Protein 39.9 H, Total Protein 7.4, Albumin 4.4, Globulin 3.0, Albumin/Globulin Ratio 1.5, Lipase 46, HCV Ab FRANKY w/Rflx PCR Qn Negative, HIV Ag/Ab Combo Qual Negative 11/22/24 10:10 11/22/24 10:10 Orders (Tests/Meds): ED MEDICATIONS Generic Name Dose Route Start Last Admin Trade Name Freq PRN Reason Stop Dose Admin Sodium Chloride 2,180 mls @ 1,090 mls/hr 11/22/24 11:15 11/22/24 11:21 Sod Chlor 0.9% 1000ml Bag 30 ml/kg infuse over 2 hr (2180 ml) 11/22/24 13:14 1,090 mls/hr IV Administration .Q2H ONE Levofloxacin/Dextrose 750 mg in 150 mls @ 100 mls/hr 11/22/24 13:00 Levofloxacin 750mg/150ml Premix IV 12/02/24 12:59 Q24H GAURAV Discontinued Medications Generic Name Dose Route Start Last Admin Trade Name Marcos PRN Reason Stop Dose Admin Acetaminophen 1,000 mg 11/22/24 10:18 11/22/24 10:24 Acetaminophen 500mg Tab PO 11/22/24 10:19 1,000 mg ONCE ONE Administration Magnesium Sulfate 2 gm in 50 mls @ 50 mls/hr 11/22/24 10:33 11/22/24 10:45 Magnesium Sulfate 2gm/50ml Premix IV 11/22/24 11:32 50 mls/hr ONCE ONE Administration Ceftriaxone Sodium 2 gm/ 100 mls @ 200 mls/hr 11/22/24 11:00 11/22/24 11:10 Sodium Chloride IV 12/02/24 10:59 200 mls/hr Q24H GAURAV Administration Iopamidol 75 ml 11/22/24 11:08 11/22/24 11:09 Iopamidol-370 (76%);100ml Bottle IV 11/22/24 11:09 75 ml ONCE ONE Administration Ondansetron HCl 4 mg 11/22/24 10:19 11/22/24 10:24 Ondansetron 4mg/2ml Vial IV 11/22/24 10:20 4 mg ONCE ONE Administration Sodium Chloride 10 ml 11/22/24 11:08 11/22/24 11:09 Sodium Chloride 0.9% 10ml Syr (Rad Only) IV 11/22/24 11:09 10 ml ONCE ONE Administration ORDERS Category Date Time Status CT abdomen pelvis w con Stat Cat Scan 11/22/24 10:[address] head/brain wo con Stat Cat Scan 11/22/24 10:17 Completed CBC w/Auto Diff [Complete Blood Count Auto Diff] Stat Lab 11/22/24 10:10 Completed CMP [Comprehensive Metabolic Panel] Stat Lab 11/22/24 10:10 Completed CRP [C-Reactive Protein] Stat Lab 11/22/24 10:10 Completed Full Resp Panel w/COVID ([facility]) Routine Lab 11/22/24 10:24 Received HIV Combo Stat Lab 11/22/24 10:10 Completed Hepatitis C Ab Qual. W/ RFX Stat Lab 11/22/24 10:10 Completed Lipase Stat Lab 11/22/24 10:10 Completed Magnesium Stat Lab 11/22/24 10:10 Completed UA [Urinalysis and Microscopic] Stat Lab 11/22/24 09:48 Completed Blood Culture Stat Micro 11/22/24 10:56 Received Urine Culture Stat Micro 11/22/24 09:48 Received VBG [Venous Blood Gas] Stat RT 11/22/24 10:10 Completed Medical Decision Narrative: Pebbles Jackson is a 79-year-old male with a history of hypertension, hyperlipidemia, mitral stenosis burning with urination, abdominal pain who presents to the emergency department for complaints of burning with urination, abdominal pain, fever, headache. Patient states that 2 weeks ago, she was treated for urinary tract infection and has had a total of 2 rounds of antibiotics, however she is still having significant burning with urination. She states that today, she was woken from sleep from severe headache and states that she normally does not get headaches. She describes a headache is in her forehead but denies any nasal congestion or runny nose. She denies any cough or chest pain. She reports some mild suprapubic abdominal pain. She is concerned that she still has a kidney infection. She has not taken any medications prior to arrival. She reports objective fevers at home. On arrival, patient with elevated temperature of 100.1 ?F, maintaining appropriate oxygen saturation on room air. Mildly elevated heart rate, mildly hypertensive. Physical exam, as stated above, revealed an ill but nontoxic-appearing female in no acute distress. Cardiopulmonary exam is unremarkable. She has suprapubic abdominal tenderness as well as some left upper quadrant abdominal tenderness. No CVA tenderness. Abdomen is otherwise soft and nonperitoneal neck. She appears mildly dehydrated with mildly dry mucous membranes. Differential diagnosis includes, but is not limited to: Sepsis, urinary tract infection/pyelonephritis, ureterolithiasis, electrolyte derangement, metabolic derangement, intracranial hemorrhage, intracranial mass, tension headache, migraine headache, among others. The most morbid conditions were considered and workup was based on these. Workup in the Emergency Department included: CT abdomen pelvis with IV contrast, CT head without contrast, CBC with differential, VBG with lactic acid, CMP, magnesium level, CRP, lipase, urinalysis with culture, blood culture x 2. Patient was given CT head interpreted by me personally. No intracranial hemorrhage, mass or midline shift. See radiology report for details. CT abdomen pelvis also interpreted by me prior to official radiology report. Thickening of the urinary bladder wall but no evidence of obstructing ureterolithiasis. No hydronephrosis. Potentially some mild perinephric fat stranding to the left kidney. No other acute findings within the abdomen or pelvis. See final radiology report for details. Lab work interpreted by me personally. Leukocytosis with white blood cell count of 17.6 with 91.9% absolute neutrophils. No significant anemia. No significant abnormalities on VBG with normal lactate. Electrolytes with mildly low sodium of 134 but otherwise unremarkable nonactionable. No ALMA. Magnesium low at 1.3 (will replace with 2 g IV magnesium sulfate), bilirubin is elevated at 1.7, however no evidence of biliary obstruction on my interpretation of CT imaging. Liver enzymes Within normal limits. CRP is mildly elevated at 39.. Lipase normal at 46. Urinalysis appears grossly infected with 20-50 white blood cells, 3+ leukocyte Estrace, nitrate positive, 1+ blood and 3+ bacteria. Patient's findings are concerning for urosepsis at this time. Previous cultures were reviewed by me. No recent cultures were noted. She did have a culture in the past that was E. coli sensitive to cephalosporins. Started patient on 2 g IV Rocephin at this time. Patient is followed by Dr. Osborne, who I spoke with over the phone for admission given her urosepsis. He agreed with admission at this time. He was able to look back on recent urine cultures and stated that he had recently put her on cefuroxime and cultures came back positive for Proteus. Given she has been on cefuroxime, he recommended IV Levaquin. Will give IV Levaquin at this time. Will place admit orders at this time per request of Dr. Osborne. Patient is agreeable to admission at this time. Critical Care Critical Care Time Critical Care Time: Yes Attestation: On 11/22/24, the high probability of a clinically significant, sudden or life threatening deterioration of the following system(s) required my full and direct attention, intervention and personal management. The time I documented below is in addition to time spent performing reported procedures but includes the following listed in this critical care notation. Total Time Total Critical Care Time: 35
[2024-11-22] MEDS: 0.9 % SODIUM CHLORIDE 1000ML 2,180 ML 1090 ML IV (11:21)
[2024-11-22 11:29] LABS: Hepatitis C Ab Qual. W/ RFX NEGATIVE (Negative)
--- NOTE | 2024-11-22 12:41 | PC.NURSE ---
is speaking with about potential admission.
--- NOTE | 2024-11-22 12:51 | PC.NURSE ---
at bedside talking with patient at this time.
--- NOTE | 2024-11-22 12:52 | PC.NURSE ---
I notified HS of the need for a bed to admit for urosepsis to .
--- NOTE | 2024-11-22 12:56 | HMH.PHAINT1 ---
Pharmacy Intervention Comments: MEDICATION RECONCILIATION COMPLETED ON PATIENT USING EXTERNAL FILL HISTORY FROM PHARMACY. -JAMARI ANGULO, ALMITAD
[2024-11-22] MEDS: LEVOFLOXACIN/D5W 750 MG/150 ML 750 MG/150 ML PIGGYBACK 100 MG IV (12:59)
--- NOTE | 2024-11-22 13:54 | PC.NURSE ---
report given [id number]
--- NOTE | 2024-11-22 15:48 | EXP.HP ---
History of Present Illness *Admission Date: 11/22/24 *Reason for visit:: UTI *History of present illness: Pebbles Jackson is a 79-year-old male with a history of hypertension, hyperlipidemia, mitral stenosis burning with urination, abdominal pain who presents to the emergency department for complaints of burning with urination, abdominal pain, fever, headache. Patient states that 2 weeks ago, she was treated for urinary tract infection and has had a total of 2 rounds of antibiotics, however she is still having significant burning with urination. She states that today, she was woken from sleep from severe headache and states that she normally does not get headaches. She describes a headache is in her forehead but denies any nasal congestion or runny nose. She denies any cough or chest pain. She reports some mild suprapubic abdominal pain. She is concerned that she still has a kidney infection. She has not taken any medications prior to arrival. She reports subjective fevers at home. (above as per ER Physician) She has failed macrobid and cefuroxime. She will be admitted and started on levaquin. [facility] Disclaimer: The information contained in this section may have been updated after the patient was seen, as this information can be updated by other users. Medical History UTI (urinary tract infection) Myocardial ischemia of inferior surface of left ventricle Coronary artery disease Coronary artery calcification seen on CT scan Abnormal myocardial perfusion study Mitral regurgitation Mitral stenosis Aortic regurgitation Aortic stenosis Abnormal MRI Hx of thyroid irradiation Hypothyroid Hyperlipidemia Hypertension Surgical History History of esophagogastroduodenoscopy (EGD) History of colonoscopy Hx of laparoscopy Hx of bilateral oophorectomy History of cholecystectomy History of appendectomy Family History Family history of acute heart failure Family history of cancer Family history of hypertension Family history of myocardial infarction Social History Smoking Status: Never smoker alcohol intake: never substance use type: denies use current occupational status: retired Travel in the last 8 weeks?: None household members: spouse housing: house lives independently: Yes marital status: education level: college current occupational exposures/hazards: No caffeine: Yes special lawson needs: No agree to transfusion: No do you feel safe at home: Yes victim of physical abuse: No victim of emotional abuse: No victim of sexual abuse: No would you like helpful sources: No Have you lived/traveled outside [place] in past 30 days?: No Contact w/someone who lives/traveled outside US past 30 days?: No Exposure to someone with infectious disease in past 14 days?: No Do you have a fever (greater than 100.4 F or 38 C)?: No Have you tested positive for COVID-19?: No Exposed to someone with COVID-19 in past 14 days?: No Do you have a sore throat?: No Do you have a cough?: No Do you have any weakness?: No Are you experiencing any nausea/vomitting?: No Do you have any diarrhea?: No Are you experiencing any unusual bleeding?: No Do you have any muscle aches/pain?: No Do you have any abdominal pain?: No Are you experiencing loss of taste or smell?: No Other Medical History Have you received the Flu Vaccine for this season: Yes Have you received the Pneumonia Vaccine: Yes Review of Systems Constitutional Constitutional: Reports body ache(s), Reports fatigue, Reports fever(s), Reports headache(s), Reports poor appetite, Reports malaise and Reports weakness Eyes Eyes: Denies blurry vision and Denies diplopia ENT Ears, Nose, Mouth, and Throat: Reports headache(s), Denies nasal congestion and Denies vertigo *Cardiovascular Cardiovascular: Denies chest pain and Denies dyspnea *Respiratory Respiratory: Denies cough and Denies dyspnea *Gastrointestinal Gastrointestinal: Reports abdominal pain, Denies constipation, Denies loose stools, Reports nausea and Denies vomiting *Genitourinary Genitourinary: Reports dysuria *Musculoskeletal Musculoskeletal: Reports myalgias *Neurologic Neurologic: Reports headache(s), Denies vertigo and Reports weakness Endocrine Endocrine: Reports fatigue Meds Home Medications and Allergies Home Medications ?Medication ?Instructions ?Recorded ?Confirmed ?Type hydrochlorothiazide 25 mg tablet 25 mg PO DAILY 04/29/21 11/22/24 History losartan 100 mg tablet 100 mg PO DAILY 04/29/21 11/22/24 History atorvastatin 20 mg tablet 20 mg PO DAILY 11/30/23 11/22/24 History levothyroxine 75 mcg tablet 75 mcg PO DAILY 11/30/23 11/22/24 History New Prescriptions to Start Prescriptions: Allergies Allergy/AdvReac Type Severity Reaction Status Date / Time No Known Allergies Allergy Verified 11/05/24 13:18 Exam Data for Last 24 hours Vital signs and Labs for Last 24 Hours: Temp Pulse Resp BP Pulse Ox O2 Del Method 97.9 F 69 16 107/57 L 98 Room Air 11/22/24 14:04 11/22/24 14:04 11/22/24 14:04 11/22/24 14:04 11/22/24 14:54 11/22/24 14:54 Laboratory Results - last 24 hr 11/22/24 09:48: Urine Color Yellow, Urine Appearance Cloudy, Urine pH 8.5, Ur Specific [place] 1.010, Urine Protein 2+ A, Urine Glucose (UA) Negative, Urine Ketones Negative, Urine Blood 1+ A, Urine Nitrate Positive A, Urine Bilirubin Negative, Urine Urobilinogen 0.2, Ur Leukocyte Esterase 3+ A, Urine RBC Occasional, Urine WBC 20-50, Ur Squamous Epith Cells 3-5, Urine Bacteria 3+ 11/22/24 10:10: WBC 17.6 H, RBC 4.15 L, Hgb 13.0, Hct 37.3, MCV 89.9, MCH 31.3 H, MCHC 34.9, RDW 13.8, Plt Count 228, MPV 9.4, Neut % (Auto) 91.9 H, Lymph % (Auto) 4.7 L, Walker % (Auto) 2.5, Eos % (Auto) 0.0 L, Baso % (Auto) 0.2, Neut # (Auto) 16.2 H, Lymph # (Auto) 0.8, Walker # (Auto) 0.4, Eos # (Auto) 0.0, Baso # (Auto) 0.0, VBG pH 7.44 H, VBG pCO2 38.1, VBG pO2 71.6 H, VBG HCO3 25.2, VBG Total CO2 26.4, VBG O2 Saturation 94.6 H, VBG Base Excess 1.0, VBG Lactic Acid 2.0, Sodium 134 L, Potassium 3.7, Chloride 99, Carbon Dioxide 27, Anion Gap 11.7, BUN 19 H, Creatinine 0.80, Estimated Creat Clear 53, Estimated GFR 69, Est GFR ( Amer) 84, Glucose 136 H, Calcium 8.8, Magnesium 1.3 L, Total Bilirubin 1.7 H, AST 32, ALT 17, Alkaline Phosphatase 108, C-Reactive Protein 39.9 H, Total Protein 7.4, Albumin 4.4, Globulin 3.0, Albumin/Globulin Ratio 1.5, Lipase 46, HCV Ab FRANKY w/Rflx PCR Qn Negative, HIV Ag/Ab Combo Qual Negative 11/22/24 10:24: Chlamy pneumoniae PCR Not detected, Adenovirus (PCR) Not detected, B. pertussis DNA (PCR) Not detected, Coronavirus OC43 (PCR) Not detected, Coronavirus HKU1 (PCR) Not detected, Coronavirus 229E (PCR) Not detected, SARS-CoV-2 (PCR) Not detected, Coronavirus NL63 (PCR) Not detected, Human Metapneumovir PCR Not detected, Influenza A (H1) PCR Not detected, Influ A (H1N1/09) PCR Not detected, Influenza A (H3) PCR Not detected, Influenza Type A (PCR) Not detected, Influenza Type B (PCR) Not detected, M. pneumoniae (PCR) Not detected, Parainfluenza 1 (PCR) Not detected, Parainfluenza 2 (PCR) Not detected, Parainfluenza 3 (PCR) Not detected, Parainfluenza 4 (PCR) Not detected, RSV (PCR) Not detected, Entero/Rhino (PCR) Not detected I & O for Last 24 hours: Intake & Output 11/20/24 11/21/24 11/22/24 11/23/24 11:59 11:59 11:59 11:59 Output Total 100 / 100 Balance -100 / -100 Weight 160 lb 169 lb 7 oz Constitutional Constitutional: no acute distress *Routine HEENT Exam Head: Present normocephalic and atraumatic Eye: Present EOMI and PERRL ENT: Present mucous membranes dry *Routine Neck Exam Neck: Present supple and full ROM *Routine Respiratory Exam Respiratory: Present CTA bilaterally *Routine Cardiovascular Exam Cardiovascular: Present RRR *Routine Abdominal Exam Abdominal: Present soft, normoactive bowel sounds and tenderness (diffuse) *Routine Rectal Exam Rectal:: deferred *Routine Genitalia Exam Genitalia:: deferred *Routine Extremities Exam Extremities: Absent cyanosis, clubbing or edema *Routine Skin Exam Skin: Present intact; Absent erythema *Routine Neurological Exam Neurological: Present alert and oriented X3 H&P: Result Impressions Abdomen/Pelvis CT 1. No acute findings. 2. Stable left renal stone disease. Head CT - nothing acute Assessment and Plan *Assessment and plan (1) Acute UTI: Status: Acute Category: Medical Code(s): N39.0 - Urinary tract infection, site not specified (2) Sepsis: Status: Acute Category: Medical Code(s): A41.9 - Sepsis, unspecified organism (3) Hypomagnesemia: Status: Acute Category: Medical Code(s): E83.42 - Hypomagnesemia (4) Hypertension: Status: Acute Category: Medical Code(s): I10 - Essential (primary) hypertension (5) Hyperlipidemia: Status: Acute Category: Medical Code(s): E78.5 - Hyperlipidemia, unspecified Plan Patient will be admitted and start on IVF's, antiemetics, and Levaquin. Dr. Osborne saw the patient with me in the ER. Dr. Osborne entry - Saw patient in ER, agree with above note.
[2024-11-22] MEDS: 0.9 % SODIUM CHLORIDE 1000ML 1,000 ML 75 ML IV (16:19)
[2024-11-23 04:00] VITALS: BP 136/76; PULSE 67; RESP 16; TEMP 36.9; O2SAT 98; BMI 31.6
[2024-11-23] MEDS: 0.9 % SODIUM CHLORIDE 1000ML 1,000 ML 75 ML IV (05:20)
--- NOTE | 2024-11-23 05:37 | PC.NURSE ---
v/s, ox4, RA. No acute events to report. Plan of care ongoing.
[2024-11-23] MEDS: ACETAMINOPHEN 500MG TAB 1000 MG PO ×2 (07:26→22:20)
[2024-11-23 08:00] VITALS: BP 136/80; PULSE 71; RESP 16; TEMP 36.9; O2SAT 94
--- OUTSIDE RECORDS SUMMARY | 2024-11-23 08:04 | XMS_ITS | Patient Health Record ---
Author Organization [facility] Address [address] [place] [address] Care Team Providers Care Color Print Inspector Name Role Phone Artem Osborne Primary Care Provider Unavailobed e Loco Bansal Unavailable [phone] Migration, Provider Unavailable Unavailable Allergies No [...] Status Risk Notes Problem Cervical root syndrome (328840729) Cervical root disorders, not elsewhere classified (G54.2) Active confirmed Problem Cervical spondylosis without myelopathy (340648255) Spondylosis without myelopathy or radiculopathy , cervical region (M47.812) Active confirmed Problem Thoracic spondylosis without myelopathy (070718105) Spondylosis without myelopathy or radiculopathy , thoracic region WRM (M47.814) Active confirmed Problem Occipital neuralgia (56965604) Occipital neuralgia WRM (M54.81) Active confirmed Problem [id number] 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 Problem 22473769 Cervical spinal stenosis (M48.02) Active confirmed Encounters Encounter Location Date Provider Diagnosis [facility] [address] [place] [address] 04/14/2024 Provider Migration Plan Of Treatment Pending Test Test Name Order Date CMBB - Cervical 2-Level - Right (05088-7 ) 10/20/2021 Urine Drug Testing 09/07/2021 Future Test Test Name Order Date CMBB - Cervical 2-Level - Right (75978-4 ) 09/07/2021 TMBB - Thoracic 2-Level - Right (97626-9 ) 09/11/2021 TMJ Injection w/ fluoro - Right () 09/11/2021 Insurance Providers Payer Name Payer Address Payer Phone Subscriber Number Group Number Insured Name Patient Relationship to Insured Coverage Start Date Coverage End Date [place] [address] [place] [address] [id number] Pebbles Jackson Self - patient is the insured 2 [facility] Medicare Supplement [facility] CLAIM DIVISION [address] [place] [address] [id number] Pebbles Jackson Self - patient is the [...]
--- OUTSIDE RECORDS SUMMARY | 2024-11-23 08:05 | XMS_ITS | Patient Health Record ---
[facility] Organization [facility] Address [address] [facility] [address] [place] [id number] Care Team Providers Care Cleaner Laboratory Equipment Name Role Phone [place] Artem Primary Care Provider Allergies No Known Allergies Results Component Value Reference Range Notes P-Comprehensive Metabolic Pa hay (CMP) Reviewed date:06/04/2024 08:39:24 AM Interpretation:bun 25, alk phos 136 Performing Lab: Notes/Report: Test performed by [facility] [address] , [address], [place] [address] Kai Kaplan MD, Professional Services Consultant CLIA: [id number] Sodium 138 135-145 mmol/L Potassium 4.2 3.5-5.3 [...] Normal Performing Lab: Notes/Report: Test performed by [facility] [address] [place] [address] , [address], [place] [address] Kai Kaplan MD, Professional Services Consultant CLIA: [id number] Thyroxine Free (free T4) 1.56 0.86-1.76 ng/dL P-Lipid Panel Reviewed date:06/04/2024 08:39:24 AM Interpretation:non-hdl 144 Performing Lab: Notes/Report: Test performed by [facility] [address] [place] [address] , [address], [place] [address] Kai Kaplan MD, Professional Services Consultant CLIA: [id number] Cholesterol 199 <200 mg/dL Triglycerides 90 <150 [...] Interpretation:6.44 Performing Lab: Notes/Report: Test performed by [facility] [address] [place] [address] , [address], [place] [address] Kai Kaplan MD, Professional Services Consultant CLIA: [id number] TSH 6.44 0.43-5.25 mU/L P-Microalbumin/Creatinine, R andom Urine Sample Reviewed date:06/04/2024 08:39:24 AM Interpretation: Normal Performing Lab: Notes/Report: Test performed by [facility] [address] [place] [address] , [address], [place] [address] Kai Kaplan MD, Professional Services Consultant CLIA: [id number] Albumin/Creatinine Ratio, Urine 22 0-30 ug/mg Microalbumin, Urine, Random 1.8 Creatinine, Urine 80.1 Urinalysis - Inhouse Reviewed date:11/07/2024 11:58:24 AM Interpretation: Performing Lab: Notes/Report: Color/Clarity Yellow/Cloudy Leuk 1+ Nitrite Pos Urobili 16 Protein Trace pH 7.5 Blood Trace-Intact Sp. Gr. 1.015 Ketone Neg Bili Neg Gluc Neg P-T4 Free (thyroxine) Reviewed date:11/08/2024 03:16:25 PM Interpretation:Normal Performing Lab: Notes/Report: Test performed by [facility] [address] [place] [address] , [address], [place] [address] Kai Kaplan MD, Professional Services Consultant CLIA: [id number] Thyroxine Free (free T4) 1.49 0.86-1.76 ng/dL P-TSH Reviewed date:11/08/2024 03:16:25 PM Interpretation:7.8 Performing Lab: Notes/Report: Test performed by [facility] [address] [place] [address] , [address], [place] [address] Kai Kaplan MD, Professional Services Consultant CLIA: [id number] TSH 7.80 0.43-5.25 mU/L TEN-UTI panel Reviewed [...] Administered Prevnar (PCV20) IM Intramuscular 05/25/2022 Administered aVhyurvi-pszzwpikp-pnhwecj e pts. IM Intramuscular 04/09/2011 Administered Problems Problem Type SNOMED Code ICD Code Onset Dates Problem Status W/U Status Risk Notes Problem Solitary nodule of lung (969507154) Lung nodule (R91.1) Active confirmed Problem Cervical radiculopathy (54041612) Cervical radiculopathy (M54.12) Active confirmed Problem Pure hypercholesterolemia (185150022) Pure hypercholesterolemia (E78.0) Active confirmed Problem Occipital neuralgia (19377453) Occipital neuralgia (M54.81) Active confirmed Problem Cervical disc diseas e (204769170) Cervical disc disease (M50.90) Active confirmed Problem Acquired hypothyroidism (659416014) Acquired hypothyroidism (E03.9) Active confirmed Problem Obesity (999877389) Non morbid o besity, unspecified obesity type (E66.9) Active confirmed Problem Sacroiliitis (22220162) Sacroiliitis (M46.1) Active confirmed Problem Sciatica (04042887) Right sided sciatica (M54.31) Active confirmed Problem Postablative hypothyroidism (627744780) Postablative hypothyroidism (E89.0) Active confirmed Problem Disorder of neck (410298261) Disorder of neck (M53.82) Active confirmed Problem Essential hypertension (09875631) Essential hypertension, hypertension with unspecified goal (I10) Active confirmed Problem Pharyngeal dysphagia (60069655170455) Pharyngeal dysphagia (R13.13) Active confirmed Problem Pure hypercholesterolemia (635925269) Pure hypercholesterolemia (E78.00) Active confirmed Problem Arthropathy of cervical spine facet joint (disorder) (371418692) Facet arthropathy, cervical (M47.812) Active confirmed Vital Signs Heart Rate 74 /min 11/07/2024 Blood pressure diastolic 78 mm Hg 11/07/2024 Height 60.50 in 11/07/2024 Blood pressure systolic 130 mm Hg 11/07/2024 Weight 164 lbs 11/07/2024 BMI 31.5 kg/m2 11/07/2024 Encounters Encounter Location Date Provider Diagnosis [facility] [address] [place], [place] [id number] 06/01/2024 Artem Cedar Essential hypertensi on, hypertension with unspecified goal I10 ; Pure hypercholesterolemia E78.00 ; Acquired hypothyroidism E03.9 and Rash R21 [facility] [address] [place], [place] [id number] 11/07/2024 Artem Cedar Acute UTI N39.0 ; Es sential hypertension, hypertension with unspecified goal I10 ; Acquired hypothyroidism E03.9 and Non morbid obesity, unspecified obesity type E66.9 [facility] [address] [place], [place] [id number] 11/19/2024 Artem Osborne [facility] [address] [place], [place] [id number] 11/30/2023 Artem Osborne [facility] [address] [place], [place] [id number] 06/04/2024 Artem Osborne [facility] [address] [place], [place] [id number] 11/08/2024 Artem Osborne Acquired hypothyroid ism E03.9 and Essential hypertension, hypertension with unspecified goal I10 Assessments Encounter Date Diagnosis (ICD Code) Assessment Notes Treatment Notes Treatment Clinical Notes Section Notes 11/07/2024 Acute UTI (ICD-10 - N39.0) 11/07/2024 Essential hypertensi on, hypertension with unspecified goal (ICD-10 - I10) 11/08/2024 Acquired hypothyroid ism (ICD-10 - E03.9) 06/01/2024 Essential hypertensi on, hypertension with unspecified [...] 05/13/2025 10:15:00 AM, [address] [facility], [address], [place], [place], [id number], Insurance Providers Payer Name Payer Address Payer Phone Subscriber Number Group Number Insured Name Patient Relationship to Insured Coverage Start Date Coverage End Date MEDICARE PART B [address] [address] [place] [address] [id number] Pebbles Jackson Self - patient is the insured [employer] INSUR[address] [place] [address] [id number] Jozef Jackson Spouse - patient is the [...]
[2024-11-23 08:20] LABS: Hematocrit 34.3 % (37.0-47.0); Immature Granulocytes % 0.4 %; Mean Corpuscular HGB Conc 33.5 g/dL (31.8-35.4); Mean Corpuscular Hemoglobin 30.7 pg (27.0-31.2); Mean Corpuscular Volume 91.7 fl (81-99); Nucleated Red Blood Cells % 0 %; Platelet Count 175 K/mm3 (142-424); Red Blood Count 3.74 M/mm3 (4.20-5.40); Red Cell Distribution Width-SD 47.3 fL; White Blood Count 9.2 K/mm3 (4.8-10.8)
[2024-11-23 08:30] LABS: Alanine Aminotransferase 13 U/L (12-78); Albumin Level 3.5 g/dl (3.5-5.0); Albumin/Globulin Ratio 1.3 (1.1-1.8); Alkaline Phosphatase 91 U/L (38-126); Anion Gap 12.9 mEq/L (5-15); Aspartate Amino Transferase 26 U/L (14-36); Bilirubin,Total 0.7 mg/dl (0.2-1.3); Blood Urea Nitrogen 14 mg/dl (7-17); Calcium 8.2 mg/dl (8.4-10.2); Carbon Dioxide 27 mmol/L (22.0-30.0); Chloride 101 mmol/L (98-107); Creatinine Clearance Estimated 56 mL/min (50-200); Creatinine,Serum 0.90 mg/dl (0.52-1.04); Estimated Glomerular Filt Rate 61 ml/min (>60); GFR (African American) 73 ML/MIN (>60); Globulin 2.6 g/dL (1.3-3.2); Glucose 115 mg/dl (74-100); Sodium 138 mmol/L (136-145); Total Protein,Serum 6.1 g/dl (6.3-8.2)
[2024-11-23 08:32] LABS: Potassium 2.9 mmoL/L (3.5-5.1)
[2024-11-23 08:35] LABS: Hemoglobin 11.5 g/dL (12.2-16.2)
--- NOTE | 2024-11-23 08:40 | P.PN_ITS ---
Subjective *Date: 11/23/24 *Time: 08:56 Interval history: Patient is still not feeling well this am. She is still nauseated and having diarrhea now. Her abdomen is still sore and she still has a headache. Medical Exam Vital signs and Labs for Last 24 Hours: Vital Signs Temp Pulse Pulse Resp BP BP Pulse Ox 11/23/24 06:52 11/23/24 05:00 11/23/24 04:00 98.5 F 67 16 136/76 98 11/23/24 02:52 11/23/24 01:00 11/22/24 23:00 11/22/24 21:00 11/22/24 20:00 11/22/24 19:54 97.8 F 61 16 110/42 L 93 L 11/22/24 16:45 11/22/24 16:00 100.3 F H 75 18 130/63 97 11/22/24 14:54 98 11/22/24 14:50 11/22/24 14:04 97.9 F 69 16 107/57 L 94 L 11/22/24 13:55 99.4 F 73 16 133/59 L 11/22/24 13:30 68 133/59 L 95 11/22/24 13:01 71 137/69 97 11/22/24 12:30 74 108/53 L 97 11/22/24 12:00 77 121/52 L 100 11/22/24 11:30 73 119/49 L 91 L 11/22/24 11:24 76 117/48 L 97 11/22/24 10:30 96 H 124/51 L 96 11/22/24 10:00 91 H 125/62 95 11/22/24 09:57 100.1 F H 99 H 18 143/64 H 96 O2 Del Method 11/23/24 06:52 Room Air 11/23/24 05:00 Room Air 11/23/24 04:00 Room Air 11/23/24 02:52 Room Air 11/23/24 01:00 Room Air 11/22/24 23:00 Room Air 11/22/24 21:00 Room Air 11/22/24 20:00 Room Air 11/22/24 19:54 Room Air 11/22/24 16:45 Room Air 11/22/24 16:00 Room Air 11/22/24 14:54 Room Air 11/22/24 14:50 Room Air 11/22/24 14:04 Room Air 11/22/24 13:55 Room Air 11/22/24 13:30 Room Air 11/22/24 13:01 11/22/24 12:30 11/22/24 12:00 Room Air 11/22/24 11:30 11/22/24 11:24 Room Air 11/22/24 10:30 Room Air 11/22/24 10:00 Room Air 11/22/24 09:57 Room Air Intake and Output 11/22/24 11/23/24 11/23/24 19:59 03:59 11:59 Intake Total 120 / 120 Output Total 100 / 100 Balance -100 / 20 120 / 20 Intake: Intake, Oral Amount 120 / 120 Output: Output, Urine Amount 100 / 100 Other: Number of Unmeasured Voids 1 Weight 169 lb 7 oz 167 lb 8 oz Patient Weight 11/23/24 11:59 Weight 167 lb 8 oz Laboratory Results - last 24 hr 11/22/24 09:48: Urine Color Yellow, Urine Appearance Cloudy, Urine pH 8.5, Ur Specific [place] 1.010, Urine Protein 2+ A, Urine Glucose (UA) Negative, Urine Ketones Negative, Urine Blood 1+ A, Urine Nitrate Positive A, Urine Bilirubin Negative, Urine Urobilinogen 0.2, Ur Leukocyte Esterase 3+ A, Urine RBC Occasional, Urine WBC 20-50, Ur Squamous Epith Cells 3-5, Urine Bacteria 3+ 11/22/24 10:10: WBC 17.6 H, RBC 4.15 L, Hgb 13.0, Hct 37.3, MCV 89.9, MCH 31.3 H , MCHC 34.9, RDW 13.8, Plt Count 228, MPV 9.4, Neut % (Auto) 91.9 H, Lymph % (Auto) 4.7 L, [place] % (Auto) 2.5, Eos % (Auto) 0.0 L, Baso % (Auto) 0.2, Neut # (Auto) 16.2 H, Lymph # (Auto) 0.8, [place] # (Auto) 0.4, Eos # (Auto) 0.0, Baso # (Auto) 0.0, VBG pH 7.44 H, VBG pCO2 38.1, VBG pO2 71.6 H, VBG HCO3 25.2, VBG Total CO2 26.4, VBG O2 Saturation 94.6 H, VBG Base Excess 1.0, VBG Lactic Acid 2.0, Sodium 134 L, Potassium 3.7, Chloride 99, Carbon Dioxide 27, Anion Gap 11.7, BUN 19 H, Creatinine 0.80, Estimated Creat Clear 53, Estimated GFR 69, Est GFR ( Amer) 84, Glucose 136 H, Calcium 8.8, Magnesium 1.3 L, Total Bilirubin 1.7 H, AST 32, ALT 17, Alkaline Phosphatase 108, C-Reactive Protein 39.9 H, Total Protein 7.4, Albumin 4.4, Globulin 3.0, Albumin/Globulin Ratio 1.5, Lipase 46, HCV Ab FRANKY w/Rflx PCR Qn Negative, HIV Ag/Ab Combo Qual Negative 11/22/24 10:24: Chlamy pneumoniae PCR Not detected, Adenovirus (PCR) Not detected, B. pertussis DNA (PCR) Not detected, Coronavirus OC43 (PCR) Not detected, Coronavirus HKU1 (PCR) Not detected, Coronavirus 229E (PCR) Not detected, SARS-CoV-2 (PCR) Not detected, Coronavirus NL63 (PCR) Not detected, Human Metapneumovir PCR Not detected, Influenza A (H1) PCR Not detected, Influ A (H1N1/09) PCR Not detected, Influenza A (H3) PCR Not detected, Influenza Type A (PCR) Not detected, Influenza Type B (PCR) Not detected, M. pneumoniae (PCR) Not detected, Parainfluenza 1 (PCR) Not detected, Parainfluenza 2 (PCR) Not detected, Parainfluenza 3 (PCR) Not detected, Parainfluenza 4 (PCR) Not detected, RSV (PCR) Not detected, Entero/Rhino (PCR) Not detected 11/23/24 08:15: WBC 9.2 D, RBC 3.74 L, Hgb 11.5 L D, Hct 34.3 L, MCV 91.7, MCH 30.7, MCHC 33.5, RDW 14.0, Plt Count 175, MPV 8.8, Neut % (Auto) 81.6 H, Lymph % (Auto) 12.0, [place] % (Auto) 4.3, Eos % (Auto) 1.4, Baso % (Auto) 0.3, Neut # (Auto) 7.5, Lymph # (Auto) 1.1, [place] # (Auto) 0.4, Eos # (Auto) 0.1, Baso # ( Auto) 0.0, Sodium 138, Potassium 2.9 L* D, Chloride 101, Carbon Dioxide 27, Anion Gap 12.9, BUN 14 D, Creatinine 0.90, Estimated Creat Clear 56, Estimated GFR 61, Est GFR ( Amer) 73, Glucose 115 H, Calcium 8.2 L, Total Bilirubin 0.7, AST 26, ALT 13, Alkaline Phosphatase 91, Total Protein 6.1 L, Albumin 3.5 D, Globulin 2.6, Albumin/Globulin Ratio 1.3 I & O for Labs for Last 24 Hours: Intake & Output 11/20/24 11/21/24 11/22/24 11/23/24 11:59 11:59 11:59 11:59 Intake Total 120 / 120 Output Total 100 / 100 Balance Weight 160 lb 167 lb 8 oz Microbiology Reports for the Last 24 Hours: Microbiology 11/22/24 09:48 Urine,Clean Catch Urine Culture - Preliminary Gram Negative Rods Constitutional: Present no acute distress Respiratory: Present CTA bilaterally Cardiac: Present Reg Rate and Rhythm GI: Present soft, tenderness (diffuse) and normal bowel sounds; Absent distention Extremities: Absent edema, clubbing or cyanosis Skin: Present intact Neuro: Present alert and awake Assessment and Plan *Assessment and plan (1) Acute UTI: Status: Acute Category: Medical Code(s): N39.0 - Urinary tract infection, site not specified (2) Sepsis: Status: Acute Category: Medical Code(s): A41.9 - Sepsis, unspecified organism (3) Hypomagnesemia: Status: Acute Category: Medical Code(s): E83.42 - Hypomagnesemia (4) Hypertension: Status: Acute Category: Medical Code(s): I10 - Essential (primary) hypertension (5) Hyperlipidemia: Status: Acute Category: Medical Code(s): E78.5 - Hyperlipidemia, unspecified (6) Diarrhea: Status: Acute Category: Medical Code(s): R19.7 - Diarrhea, unspecified (7) Hypokalemia: Status: Acute Category: Medical Code(s): E87.6 - Hypokalemia Plan Will continue IVF's and IV abx. Dr. Osborne entry - Saw patient, agree with above note. She developed diarrhea overnight, will check stool for C. diff today due to recent antibiotic use. Plan to replace potassium and magnesium today. Urine culture has growth of a gram negative wallace. Continue Levaquin.
[2024-11-23] MEDS: D5W/0.45% NaCl w/40mEq KCl 1,000 ML 75 ML IV (09:45)
[2024-11-23] MEDS: POTASSIUM CHLORIDE 20MEQ TAB 20 MEQ PO (09:51)
[2024-11-23] MEDS: MAGNESIUM SULFATE IN WATER 2 GM/50 ML PIGGYBACK IV (09:57)
[2024-11-23] MEDS: LEVOTHYROXINE 75MCG (0.075MG) TAB 75 MCG PO (09:59)
[2024-11-23 10:12] LABS: Adenovirus F 40/41, stool Not Detected (NotDetected); Clostridium Difficile A/B, PCR Not Detected (NotDetected); Cyclospora Cayetanesis Not Detected (NotDetected); Plesimonas Shigalloides, PCR Not Detected (NotDetected); Salmonella, PCR Not Detected (NotDetected); Shiga-like toxin E coli Not Detected (NotDetected); Shigella Enterovasive E coli Not Detected (NotDetected); Vibrio, PCR Not Detected (NotDetected); Yersinia Entercolitica, PCR Not Detected (NotDetected)
[2024-11-23] MEDS: LEVOFLOXACIN/D5W 750 MG/150 ML 750 MG/150 ML PIGGYBACK 100 MG IV (13:59)
[2024-11-23 16:00] VITALS: BP 144/77; PULSE 63; RESP 16; TEMP 36.7; O2SAT 92
--- NOTE | 2024-11-23 19:38 | PC.NURSE ---
PATIENT REMAINS ALERT AND ORIENTED, C/O HEADACHE THIS MORNING, TREATED PER JUL. STOOL SAMPLE SENT FOR DIARRHEA PANEL, RESULTS RECEIVED FROM LAB: CAMPYLOBACTOR AND ENTEROPATHOGENIC E.COLI, NOTIFIED OF RESULTS, NEW ORDERS RECEIVED.
[2024-11-23 19:51] VITALS: BP 144/59; PULSE 65; RESP 18; TEMP 36.9; O2SAT 95
[2024-11-23] MEDS: ATORVASTATIN 20MG TABLET 20 MG PO (20:35)
[2024-11-24] MEDS: D5W/0.45% NaCl w/40mEq KCl 1,000 ML 75 ML IV (02:22)
[2024-11-24 04:00] VITALS: BP 143/66; PULSE 70; RESP 18; TEMP 37; O2SAT 94; BMI 31.1
[2024-11-24] MEDS: LEVOTHYROXINE 75MCG (0.075MG) TAB 75 MCG PO (06:03)
[2024-11-24 07:35] LABS: Hematocrit 35.0 % (37.0-47.0); Hemoglobin 11.4 g/dL (12.2-16.2); Immature Granulocytes % 0.6 %; Mean Corpuscular HGB Conc 32.6 g/dL (31.8-35.4); Mean Corpuscular Hemoglobin 30.1 pg (27.0-31.2); Mean Corpuscular Volume 92.3 fl (81-99); Nucleated Red Blood Cells % 0 %; Platelet Count 183 K/mm3 (142-424); Red Blood Count 3.79 M/mm3 (4.20-5.40); Red Cell Distribution Width-SD 47.2 fL; White Blood Count 10.0 K/mm3 (4.8-10.8)
[2024-11-24 08:00] VITALS: BP 148/73; PULSE 60; RESP 18; TEMP 37; O2SAT 92
[2024-11-24 08:19] LABS: Alanine Aminotransferase 14 U/L (12-78); Albumin Level 3.6 g/dl (3.5-5.0); Albumin/Globulin Ratio 1.5 (1.1-1.8); Alkaline Phosphatase 109 U/L (38-126); Anion Gap 8.8 mEq/L (5-15); Aspartate Amino Transferase 32 U/L (14-36); Bilirubin,Total 0.7 mg/dl (0.2-1.3); Blood Urea Nitrogen 14 mg/dl (7-17); Calcium 8.2 mg/dl (8.4-10.2); Carbon Dioxide 22 mmol/L (22.0-30.0); Chloride 109 mmol/L (98-107); Creatinine Clearance Estimated 55 mL/min (50-200); Creatinine,Serum 0.80 mg/dl (0.52-1.04); Estimated Glomerular Filt Rate 69 ml/min (>60); GFR (African American) 84 ML/MIN (>60); Globulin 2.4 g/dL (1.3-3.2); Glucose 95 mg/dl (74-100); Magnesium 1.9 mg/dl (1.6-2.3); Potassium 3.8 mmoL/L (3.5-5.1); Sodium 136 mmol/L (136-145); Total Protein,Serum 6.0 g/dl (6.3-8.2)
[2024-11-24] MEDS: ONDANSETRON 4MG/2ML VIAL 4 MG IV (08:29)
[2024-11-24] MEDS: ACETAMINOPHEN 500MG TAB 1000 MG PO (08:29)
--- NOTE | 2024-11-24 08:54 | EXP.ACUTE.PN ---
Subjective *Date: 11/24/24 *Time: 08:54 Interval history: Patient feels a little better today, still has some headache, fewer bowel movements today Medical Exam Vital signs and Labs for Last 24 Hours: Vital Signs Temp Pulse Resp BP Pulse Ox O2 Del Method 11/24/24 08:00 Room Air 11/24/24 08:00 98.6 F 60 18 148/73 H 92 L Room Air 11/24/24 06:50 Room Air 11/24/24 04:51 Room Air 11/24/24 04:00 98.6 F 70 18 143/66 H 94 L Room Air 11/24/24 03:00 Room Air 11/24/24 01:00 Room Air 11/23/24 23:00 Room Air 11/23/24 21:00 Room Air 11/23/24 20:00 Room Air 11/23/24 19:51 98.4 F 65 18 144/59 H 95 Room Air 11/23/24 18:49 Room Air 11/23/24 17:00 Room Air 11/23/24 16:00 98.0 F 63 16 144/77 H 92 L Room Air 11/23/24 14:54 Room Air 11/23/24 13:00 Room Air 11/23/24 11:00 Room Air 11/23/24 09:00 Room Air Intake and Output 11/23/24 11/24/24 11/24/24 23:59 07:59 15:59 Intake Total 340 / 1635 615 / 1095 480 / 1095 Output Total 100 / 100 Balance 240 / 1535 615 / 1095 480 / 1095 Intake: Intake, Oral Amount 340 / 1260 240 / 720 480 / 720 Intake, Total IV Amount 375 / 375 D5W/0.45% NaCl w/40mEq KCl 1, 375 / 375 000 ml @ 75 mls/hr IV .[id number] [facility] Rx#:[id number] Output: Output, Urine Amount 100 / 100 Other: Number of Unmeasured Voids 0 Number of Bowel Movements 1 Weight 165 lb Patient Weight 11/24/24 23:59 Weight 165 lb Laboratory Results - last 24 hr 11/23/24 10:08: Stl C. cayetanensis PCR Not detected, Stool Rotavirus (PCR) Not detected, Stl Adenov F 40/41 PCR Not detected, Stool Astrovirus (PCR) Not detected, Stool Campylobacter PCR Detected A, Stl C.difficile Tox PCR Not detected, Stool Cryptosporidium PCR Not detected, Stl E.coli Shiga Tox PCR Not detected, Stool E coli O157 PCR Not detected, Stl Enterotoxigenic E PCR Not detected, Stool EPEC (PCR) Detected A, Stool EAEC (PCR) Not detected, Stl E. histolytica PCR Not detected, Stool Giardia Lamblia PCR Not detected, Stool Salmonella PCR Not detected, Stool Sapovirus (PCR) Not detected, Stl P. shigelloides PCR Not detected, Stl Shigella/EIEC PCR Not detected, St Y.enterocolitica PCR Not detected, Stool Vibrio (PCR) Not detected, Stl Vibrio cholerae PCR Not detected, Stl Norovirus GI/GII PCR Not detected 11/24/24 07:10: WBC 10.0, RBC 3.79 L, Hgb 11.4 L, Hct 35.0 L, MCV 92.3, MCH 30.1, MCHC 32.6, RDW 13.9, Plt Count 183, MPV 9.6, Neut % (Auto) 76.8, Lymph % (Auto) 14.6, [place] % (Auto) 5.0, Eos % (Auto) 2.5, Baso % (Auto) 0.5, Neut # (Auto) 7.7, Lymph # (Auto) 1.5, [place] # (Auto) 0.5, Eos # (Auto) 0.3, Baso # (Auto) 0.1, Sodium 136, Potassium 3.8 D, Chloride 109 H, Carbon Dioxide 22, Anion Gap 8.8, BUN 14, Creatinine 0.80, Estimated Creat Clear 55, Estimated GFR 69, Est GFR ( Amer) 84, Glucose 95, Calcium 8.2 L, Magnesium 1.9 D, Total Bilirubin 0.7, AST 32, ALT 14, Alkaline Phosphatase 109, Total Protein 6.0 L, Albumin 3.6, Globulin 2.4, Albumin/Globulin Ratio 1.5 I & O for Labs for Last 24 Hours: Intake & Output 11/21/24 11/22/24 11/23/24 11/24/24 23:59 23:59 23:59 23:59 Intake Total 1020 / 1635 1095 / 1095 Output Total 100 / 100 100 / 100 Balance -100 / 20 920 / 1535 1095 / 1095 Weight 169 lb 7 oz 167 lb 8 oz 165 lb Microbiology Reports for the Last 24 Hours: Microbiology 11/22/24 10:56 Blood Blood Culture - Preliminary NO GROWTH AFTER 24 HOURS 11/22/24 10:50 Blood Blood Culture - Preliminary NO GROWTH AFTER 24 HOURS 11/22/24 09:48 Urine,Clean Catch Urine Culture - Preliminary Gram Negative Rods Constitutional: Present no acute distress Respiratory: Present CTA bilaterally Cardiac: Present Reg Rate and Rhythm GI: Present soft, tenderness (diffuse) and normal bowel sounds; Absent distention Extremities: Absent edema, clubbing or cyanosis Skin: Present intact Neuro: Present alert and awake Assessment and Plan *Assessment and plan (1) Acute UTI: Status: Acute Category: Medical Code(s): N39.0 - Urinary tract infection, site not specified (2) Sepsis: Status: Acute Category: Medical Code(s): A41.9 - Sepsis, unspecified organism (3) Hypomagnesemia: Status: Acute Category: Medical Code(s): E83.42 - Hypomagnesemia (4) Hypertension: Status: Acute Category: Medical Code(s): I10 - Essential (primary) hypertension (5) Hyperlipidemia: Status: Acute Category: Medical Code(s): E78.5 - Hyperlipidemia, unspecified (6) Diarrhea: Status: Acute Category: Medical Code(s): R19.7 - Diarrhea, unspecified (7) Hypokalemia: Status: Acute Category: Medical Code(s): E87.6 - Hypokalemia (8) Campylobacter diarrhea: Status: Acute Category: Medical Code(s): A04.5 - Campylobacter enteritis (9) Enteropathogenic Escherichia coli infection: Status: Acute Category: Medical Code(s): A04.0 - Enteropathogenic Escherichia coli infection Plan Patient feels a little better this morning, stool results reviewed, urine culture is still pending, potassium and magnesium are normal now. Possible discharge home later today.
--- NOTE | 2024-11-25 12:01 | PC.NURSE ---
Pts final urine culture result forwarded to the hospitalist as she was admitted.
--- NOTE | 2024-11-26 10:59 | SW/DCPLANNER ---
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
--- NOTE | 2024-11-27 00:03 | EXP.DC.SUM ---
General Admission date:: 11/22/24 Discharge date: 11/24/24 HPI HPI HPI: Pebbles Jackson is a 79-year-old male with a history of hypertension, hyperlipidemia, mitral stenosis burning with urination, abdominal pain who presents to the emergency department for complaints of burning with urination, abdominal pain, fever, headache. Patient states that 2 weeks ago, she was treated for urinary tract infection and has had a total of 2 rounds of antibiotics, however she is still having significant burning with urination. She states that today, she was woken from sleep from severe headache and states that she normally does not get headaches. She describes a headache is in her forehead but denies any nasal congestion or runny nose. She denies any cough or chest pain. She reports some mild suprapubic abdominal pain. She is concerned that she still has a kidney infection. She has not taken any medications prior to arrival. She reports subjective fevers at home. (above as per ER Physician) She has failed macrobid and cefuroxime. She will be admitted and started on levaquin. Hospital Course Hospital Course Hospital Course: The patient's abdominal and pelvic CT showed nothing acute. Her head CT showed nothing acute. She was admitted and started on IV fluids, antiemetics, and Levaquin. By 11/23/2024 she was still not feeling well and had developed diarrhea. Her abdomen was sore and she had a headache. A stool panel was ordered and was positive for Campylobacter and EPEC. Her potassium was low and was replaced. By 11/24/2024 she was feeling better and had fewer bowel movements. Her potassium and magnesium normalized and she was stable to be discharged home. Of note, her blood cultures showed no growth and her urine was positive for Proteus which was sensitive to Levaquin. Exam Data for Last 24 hours Vital signs and Labs for Last 24 Hours: Temp Pulse Resp BP Pulse Ox O2 Del Method 98.6 F 60 18 148/73 H 92 L Room Air 11/24/24 08:00 11/24/24 08:00 11/24/24 08:00 11/24/24 08:00 11/24/24 08:00 11/24/24 11:00 I & O for Last 24 hours: Intake & Output 11/24/24 11/25/24 11/26/24 11/27/24 11:59 11:59 11:59 11:59 Intake Total 1635 / 1635 Output Total 100 / 100 Balance 1535 / 1535 Weight 165 lb Microbiology Reports for the Last 24 Hours: Microbiology 11/22/24 10:56 Blood Blood Culture - Preliminary NO GROWTH AFTER 4 DAYS 11/22/24 10:50 Blood Blood Culture - Preliminary NO GROWTH AFTER 4 DAYS Narrative: Constitutional Constitutional: no acute distress *Routine HEENT Exam Head: Present normocephalic and atraumatic Eye: Present EOMI and PERRL ENT: Present mucous membranes dry *Routine Neck Exam Neck: Present supple and full ROM *Routine Respiratory Exam Respiratory: Present CTA bilaterally *Routine Cardiovascular Exam Cardiovascular: Present RRR *Routine Abdominal Exam Abdominal: Present soft, normoactive bowel sounds and tenderness (diffuse) *Routine Rectal Exam Rectal:: deferred *Routine Genitalia Exam Genitalia:: deferred *Routine Extremities Exam Extremities: Absent cyanosis, clubbing or edema *Routine Skin Exam Skin: Present intact; Absent erythema *Routine Neurological Exam Neurological: Present alert and oriented X3 Results Data Completed and Pending Labs on day of discharge: Preliminary micro results at discharge 11/22/24 10:56 Blood Culture - Preliminary Blood NO GROWTH AFTER 4 DAYS 11/22/24 10:50 Blood Culture - Preliminary Blood NO GROWTH AFTER 4 DAYS DS: Diagnosis Discharge Diagnosis (1) Acute UTI: Status: Acute Code(s): N39.0 - Urinary tract infection, site not specified (2) Sepsis: Status: Acute Code(s): A41.9 - Sepsis, unspecified organism (3) Hypomagnesemia: Status: Acute Code(s): E83.42 - Hypomagnesemia (4) Hypertension: Status: Acute Code(s): I10 - Essential (primary) hypertension (5) Hyperlipidemia: Status: Acute Code(s): E78.5 - Hyperlipidemia, unspecified (6) Diarrhea: Status: Acute Code(s): R19.7 - Diarrhea, unspecified (7) Hypokalemia: Status: Acute Code(s): E87.6 - Hypokalemia (8) Campylobacter diarrhea: Status: Acute Code(s): A04.5 - Campylobacter enteritis (9) Enteropathogenic Escherichia coli infection: Status: Acute Code(s): A04.0 - Enteropathogenic Escherichia coli infection Meds Home Medications and Allergies Home Medications ?Medication ?Instructions ?Recorded ?Confirmed ?Type hydrochlorothiazide 25 mg tablet 25 mg PO DAILY 04/29/21 11/22/24 History losartan 100 mg tablet 100 mg PO DAILY 04/29/21 11/22/24 History atorvastatin 20 mg tablet 20 mg PO DAILY 11/30/23 11/22/24 History levothyroxine 75 mcg tablet 75 mcg PO DAILY 11/30/23 11/22/24 History levofloxacin 500 mg tablet 500 mg PO DAILY #7 tabs 11/24/24 Rx New Prescriptions to Start Prescriptions: levofloxacin Artem Osborne Allergies Allergy/AdvReac Type Severity Reaction Status Date / Time No Known Allergies Allergy Verified 11/05/24 13:18 Discharge Plan Disposition Patient Disposition: Home, Self-Care Condition: Fair Discharge Order Discharge Orders: Discharge Order (Routine); Ordered 11/24/24 Ordered By: Artem Osborne Follow up Plan Follow up with: Artem Osborne MD [Primary Care Provider, Medical] - 12/03/24 Referral Note: Please call for a time. Prescriptions/Medication Reconciliation: New levofloxacin 500 mg tablet 500 mg PO DAILY Qty: 7 0RF Continued atorvastatin 20 mg tablet 20 mg PO DAILY levothyroxine 75 mcg tablet 75 mcg PO DAILY losartan 100 mg tablet 100 mg PO DAILY hydrochlorothiazide 25 mg tablet 25 mg PO DAILY Problem Reconciliation Problems Reviewed?: Yes Patient Discharge Instructions ACTIVITY: Limited activity DIET: continue same diet Patient Instructions: DI for Urinary Tract Infection (UTI), DI for Sepsis -- Adult, DI for Hypomagnesemia Print Language: Khmer Providers Primary Care Provider: Artem Osborne Admit Provider: Artem Osborne Attending Provider: Artem Osborne
--- NOTE | 2024-11-29 08:33 | PC.NURSE ---
pts final urine culture forwarded to the hospitalist as she was admitted.
== END 2024-11-24 12:31 | disposition home or self-care (01) | DRG 872 ==
LOC: ER 12:57 → 2ND 13:35
PROVIDERS: Physician Assistant; Admitting Provider Family Medicine; Emergency Provider Student in an Organized Health Care Education/Training Program; PCP Family Medicine; Visit Provider Family Medicine
DX: A41.51 Sepsis due to Escherichia coli [E. coli] (principal); N39.0 Urinary tract infection, site not specified; A04.5 Campylobacter enteritis; E83.42 Hypomagnesemia; E78.5 Hyperlipidemia, unspecified; I08.8 Other rheumatic multiple valve diseases; E87.6 Hypokalemia; I11.9 Hypertensive heart disease without heart failure; I77.810 Thoracic aortic ectasia; I25.10 Atherosclerotic heart disease of native coronary artery without angina pectoris; R94.39 Abnormal result of other cardiovascular function study; R93.89 Abnormal findings on diagnostic imaging of other specified body structures; Z79.890 Hormone replacement therapy; Z79.899 Other long term (current) drug therapy
CPT/HCPCS: 36415; 70450; 74177; 80053; 81001; 82803; 83690; 83735; 85025; 86140; 86803; 87040; 87086; 87088; 87186; 87389; 87506; 87633; J0696; J1650; J1956; J2405; J3475; J3480; J7030; Q9967

== ENCOUNTER 2024-12-26 09:24 | Outpatient (CLI) | payer MEDICARE, SELFPAY ==
--- OUTSIDE RECORDS SUMMARY | 2024-04-14 17:00 | XMS_ITS ---
Author Organization [facility] Address [address] [place] [address] Care Team Providers Care Visual Developer Name Role Phone Artem Osborne Primary Care Provider Loco Diggs Unavailable [phone] Migration, Provider Unavailable Unavailable REASON FOR VISIT [facility] To [facility] Conversion Encounter Medications Medication SIG (Take, Route, Frequency, Duration) Notes Start Date End Date Status Atorvastatin Calcium 20 MG Tablet 1 tab(s) orally once a day; Duration: 30 day(s) 09/07/2021 Active Gabapentin 300 MG Capsule 1 cap(s) orall y once a day; Duration: 30 day(s) 09/07/2021 Active hydroCHLOROthiazide 25 MG Tablet 1 tab(s) orally once a day; Duration: 30 day(s) 09/07/2021 Active Levothyroxine Sodium 100 MCG Tablet 1 tab(s) orally once a day; Duration: 30 day(s) 09/07/2021 Active Losartan Potassium 100 MG Tablet 1 tab(s) orally once a day; Duration: 30 day(s) 09/07/2021 Active MODERNA COVID-19 VACCINE PF *Please review for potential replacement for e-prescription and drug interaction check* Active Encounters Encounter Location Date Provider Diagnosis [facility] [address] [place] [address] 04/14/2024 Provider Migration Plan Of Treatment No Information Progress Notes * Satinder MARINOOB:1945 (79 yo F)Acc No.[id number]:04/14/2024 Patient: Pebbles Cast Provider: Savanah huntley Migration :1945 A ge:79 Y S ex:Female Date:04/14/2024 Address:[address] [place] [address] [place], [place], [id number] Pcp:Artem Osborne Subjective: * Chief Complaints: * M ultum To [facility] Conversion Encounter * Medications: T akingMODERNA COVID-19 VACCINE PF , Notes to Pharmacist: *Please review for potential replacement for e-prescription and drug interaction check*Atorvastatin Calcium 20 MG Tablet 1 tab(s) orally once a day Gabapentin 300 MG Capsule 1 cap(s) orally once a day hydroCHLOROthiazide 25 MG Tablet 1 tab(s) orally once a day Levothyroxine Sodium 100 MCG Tablet 1 tab(s) orally once a day Losartan Potassium 100 MG Tablet 1 tab(s) orally once a day Taking MODERNA COVID-19 VACCINE PF , Notes to Pharmacist: *Please review for potential replacement for e-prescription and drug interaction check*Taking Atorvastatin Calcium 20 MG Tablet 1 tab(s) orally once a day Taking Gabapentin 300 MG Capsule 1 cap(s) orally once a day Taking hydroCHLOROthiazide 25 MG Tablet 1 tab(s) orally once a day Taking Levothyroxine Sodium 100 MCG Tablet 1 tab(s) orally once a day Taking Losartan Potassium 100 MG Tablet 1 tab(s) orally once a day * Electronic signature of Prov andrewr Migration on 12/26/2024 at 09:28 AM EDT Sign off status: Pending * Provider: Savanah Arce Date: 1 06/15/2023 Generated for Valentina leblanc/Fabio/Ana on: 0 12/26/2024 09:28 AM EDT
--- OUTSIDE RECORDS SUMMARY | 2024-11-07 06:00 | XMS_ITS ---
Author Organization [facility] Address [address] [facility] [address] [place] [id number] Care Team Providers Care Classification Case Manager Name Role Phone Artem Osborne Primary Care Provider [phone] Allergies No Known Allergies Results Component Value Reference Range Notes Urinalysis - Inhouse Reviewed date:11/07/2024 11:58:24 AM Interpretation: Performing Lab: Notes/Report: Color/Clarity Yellow/Cloudy Leuk 1+ Nitrite Pos Urobili 16 Protein Trace pH 7.5 Blood Trace-Intact Sp. Gr. 1.015 Ketone Neg Bili Neg Gluc Neg P-T4 Free (thyroxine) Reviewed date:11/08/2024 03:16:25 PM Interpretation:Normal Performing Lab: Notes/Report: Test performed by [facility] [address] [place] [address] [place] [address] Kai Kaplan MD, Manual Tester CLIA: [id number] Thyroxine Free (free T4) 1.49 0.86-1.76 ng/dL P-TSH Reviewed date:11/08/2024 03:16:25 PM Interpretation:7.8 Performing Lab: Notes/Report: Test performed by [facility] [address] [place] [address] [address], [place] [address] Kai Kaplan MD, Manual Tester CLIA: [id number] TSH 7.80 0.43-5.25 mU/L TEN-UTI panel Reviewed date:11/11/2024 01:21:48 PM Interpretation:Abnormal Performing Lab: Notes/Report: Abnormal REASON FOR VISIT poss UTI Medications Medication SIG (Take, Route, Frequency, Duration) Notes Start Date End Date Status Nitrofurantoin Monohyd Macro 100 MG 1 capsule with food Orally every 12 hrs; Duration: 5 day(s) 11/07/2024 Active Levothyroxine Sodium 75 MCG 1 tablet in the morning on an empty stomach Orally Once a day Active Losartan Potassium 100 MG 1 tablet Orall y Once a day Active Atorvastatin Calcium 20 MG 1 tablet Oral ly Once a day; Duration: 90 days Active Triamcinolone Acetonide 0.1 % 1 applicat ion Externally Twice a day 06/01/2024 Active hydroCHLOROthiazide 25 MG 1 tab(s) orall y once a day Active Vital Signs Blood pressure systolic 130 mm Hg 11/08/19 25 Blood pressure diastolic 78 mm Hg 025 Heart Rate 74 /min 11/07/2024 Height 60.50 in 11/07/2024 Weight 164 lbs 11/07/2024 BMI 31.5 kg/m2 11/07/2024 Encounters Encounter Location Date Provider Diagnosis [facility] [address] [facility] [address] [place] [id number] 11/07/2024 Artem Osborne Acute UTI N39.0 ; Essential hypertension, hypertension with unspecified goal I10 ; Acquired hypothyroidism E03.9 and Non morbid obesity, unspecified obesity type E66.9 Assessments Encounter Date Diagnosis (ICD Code) Assessment Notes Treatment Notes Treatment Clinical Notes Section Notes 11/07/2024 Acute UTI (ICD-10 - N39.0) 11/07/2024 Essential hypertension, hypertension with unspecified goal (ICD-10 - I10) 11/07/2024 Acquired hypothyroidism (ICD-10 - E03.9) 11/07/2024 Non morbid obesity, unspecified obesity type (ICD-10 - E66.9) Plan Of Treatment Medication Medication Name Sig Start Date Stop Date Notes Nitrofurantoin Monohyd Macro 100 MG 1 ca psule with food Orally every 12 hrs; Duration: 5 day(s) 11/07/2024 Levothyroxine Sodium 75 MCG 1 tablet in the morning on an empty stomach Orally Once a day Losartan Potassium 100 MG 1 tablet Orall y Once a day hydroCHLOROthiazide 25 MG 1 tab(s) orall y once a day Next Appt Details Follow Up: 6 Months, Reason: Provider Name:Artem paul, 05/13/2025 10:15:00 AM, [address], [address], [place], [place], [id number], Progress Notes * Satinder MARINOOB:1945 (79 yo F)Acc No.[id number]:11/07/2024 Progress Notes Patient: Pebbles MANCIA Provider: Teagan Osborne M.D. :1945 A ge:79 Y S ex:Female Date:11/07/2024 Address:[address] [place] [address], [place], [id number] Subjective: * Chief Complaints: * 1 . poss UTI. * HPI: U rology: 79 year old female presents with c/o burning sensation P t complains of burning with urination for about 3 days. * ROS: C ARDIOLOGY: no D izziness. n o C hest pain. D ERMATOLOGY: no R adam. n o H kuldeep. G ASTROENTEROLOGY: no N ausea. n o V omiting. * Medical History: H ypertension , Graves Disease , Hyperlipidemia, Psorisis, Cervical spine osteoarthritis, Cervical Disc Disease, Occipital neuralgia, Colon polyps, Cardiac murmur. * Surgical History: R uptured Appendix 1947, Adhesions 1959, cholecystectomy 1996, oophorectomy, bilateral 2004, colonoscopy 2015, colonoscopy 2018. * Hospitalization/Major Diagno stic Procedure: D enies Past Hospitalization. * Family History: F ather: , Testicular Cancer. M other: , Heart Attack. S iblings: One brother Heart Attack & Heart Transplant. 3 brother(s) . 2 son(s) , 1 daughter(s) - healthy. . * Social History: C URRENT TOBACCO USE: No . C affeine: yes, frequency: 1 cup a day. Exercise: yes, Curves. Marital Status: . Past smoking status: no. * Medications: T aking Atorvastatin Calcium 20 MG Tablet 1 tablet Orally Once a day , Taking Triamcinolone Acetonide 0.1 % Cream 1 application Externally Twice a day , Taking hydroCHLOROthiazide 25 MG Tablet 1 tab(s) orally once a day , Taking Levothyroxine Sodium 75 MCG Tablet 1 tablet in the morning on an empty stomach Orally Once a day , Taking Losartan Potassium 100 MG Tablet 1 tablet Orally Once a day , Discontinued Aspirin 81 MG ENTERIC COATED TABLET 1 TAB(S) ORALLY ONCE A DAY , Medication List reviewed and reconciled with the patient * Allergies: N .K.D.A. Objective: * Vitals: W t: 164, Temp: 98.0, BP: 130/78, HR: 74, Nurse: tomasa, Ht: 60.50, BMI:31.5. * Examination: G eneral Examination: General Appearance: N AD. H eart: R SR. L ungs:?clear to auscultation. P eripheral pulses: n ormal (2+) bilaterally. E xtremities:?no leg edema. Assessment: * Assessment: 1. A cute UTI - N39.0 (Primary) 2 . E ssential hypertension, hypertension with unspecified goal - I10 3 . A cquired hypothyroidism - E03.9 4 . N on morbid obesity, unspecified obesity type - E66.9 Plan: * Treatment: Value Reference Range C olor/Clarity Yellow/Cloudy * L euk 1+ * N itrite Pos * U robili 16 * P rotein Trace * p H 7.5 * B lood Trace-Intact * S p. Gr. 1.015 * K etone Neg * B nini Neg * G abhi Neg * Katherine Vazquez 11/07/2024 10:26:4 9 AM EDT > Provider reviewed results while patient in office. ?LAB: TEN-UTI panel (Collection Date & Time - 11/07/2024)?Abnormal* Yamileth Heller 11/11/2024 01:21 :40 PM EDT > See phone encounter 2.?Essential hypertension, hypertension with unspecified goal? Continue hydroCHLOROthiazide Tablet, 25 MG, 1 tab(s), orally, once a day;?Continue Losartan Potassium Tablet, 100 MG, 1 tablet, Orally, Once a day.?? 3.?Acquired hypothyroidism? Continue Levothyroxine Sodium Tablet, 75 MCG, 1 tablet in the morning on an empty stomach, Orally, Once a day.?LAB: P-T4 Free (thyroxine) (Collection Date & Time - 11/07/2024 09:19 AM)? Normal* Value Reference Range T hyroxine Free (free T4) 1.49 0.86-1.76 - ng/d L * Yamileth Heller 11/08/2024 03:16 :18 PM EDT > See phone encounter ?LAB: P-TSH (Collection Date & Time - 11/07/2024 09:19 AM)?7.8* Value Reference Range T SH 7.80 H 0.43-5.25 - mU/L * Yamileth Heller 11/08/2024 03:16 :18 PM EDT > See phone encounter * Procedure Codes: G 2211 Complex e/[place], [address] Urinalysis, no micro, 1036F TOBACCO NON- USER, G8950 PREHTN/HTN BP DOC INDCD F/U DOC, G8752 MOST RECENT SYSTOLIC BP < 140MM HG, G8754 MOST RECENT DIASTOLIC BP < 90MM HG * Follow Up: 6 Months * Images: Billing Information: * Visit Code: 82375 Office Visit, Est Pt., Level 4. * Procedure Codes: G2211 Complex e/[place]. [address] Urinalysis, no micro. 1036F TOBACCO NON-USER. G8950 PREHTN/HTN BP DOC INDCD F/U DOC. G8752 MOST RECENT SYSTOLIC BP < 140MM HG. G8754 MOST RECENT DIASTOLIC BP < 90MM HG. * Electronic signature of Yusra Osborne MD on 12/26/2024 at 09:28 AM EDT Sign off status: Pending * Provider: Teagan Osborne M.D. Date: 11/07/2024 Generated for Valentina leblanc/Fagregoriog/eTransmitting on: 0 12/26/2024 09:28 AM EDT History and Physical Notes * HPI (History of Present Illness) Category Sub-Category Detail Notes Category Not es Urology burning sensation Pt complains o f burning with urination for about 3 days Examination Category Sub-Category Detail Notes Category Not es General Examination Heart: RSR Lungs: clear to auscultatio n Extremities: no leg edema General Appearance: NAD Peripheral pulses: normal (2+) bilatera lly
--- OUTSIDE RECORDS SUMMARY | 2024-11-19 05:39 | XMS_ITS ---
Author [facility] [address] [facility] 36 [facility] [address] [place] [id number] Care Team Providers Care Still Operator Helper Name Role Phone Artem Osborne Primary Care Provider [phone] REASON FOR VISIT due bone density Encounters Encounter Location Date Provider Diagnosis [facility] [address] [place] [id number] 11/19/2024 Artem Osborne Screening for osteoporosis Z13.820 Assessments Encounter Date Diagnosis (ICD Code) Assessment Notes Treatment Notes Treatment Clinical Notes Section Notes 11/19/2024 Screening for osteoporosis (ICD-10 - Z13.820) Plan Of Treatment Pending Test Test Name Order Date Bone density 11/19/2024 Next Appt Details Provider Name:Artem Garcia ry, 05/13/2025 10:15:00 AM, [address] [facility], [address], [place], [phone], Progress Notes * Satinder MARINOOB:1945 (79 yo F)Acc No.[id number]:11/19/2024 Patient: Pebbles MANCIA :1945 A ge:79 Y S ex:Female Address:[address] [place], [address] Subjective: * Chief Complaints: * D ue bone density * Medical History: * Surgical History: * Hospitalization/Major Diagno stic Procedure: * Medications: Objective: * Vitals: * Physical Examination: Assessment: * Assessment: 1. S creening for osteoporosis - Z13.820 (Primary) Plan: * Treatment: * Procedure Codes: * true * Date: Generated for Valentina leblanc/Fabio/Ana on: 0 12/26/2024 09:28 AM EDT
--- OUTSIDE RECORDS SUMMARY | 2024-12-03 06:15 | XMS_ITS ---
Author Organization [facility] Address [address] [facility] [address] [place] [id number] Care Team Providers Care Irrigator Gravity Flow Name Role Phone Artem Osborne Primary Care Provider Allergies No Known Allergies Results Component Value Reference Range Notes Urinalysis - Inhouse Reviewed date:12/03/2024 09:58:56 PM Interpretation: Performing Lab: Notes/Report: Leuk Trace Nitrite Neg Urobili 3.2 Protein Neg pH 7.0 Blood Neg Sp. Gr. 1.015 Ketone Neg Bili Neg Gluc Neg CBC Venipuncture (in house) Reviewed date:12/03/2024 09:58:29 PM Interpretation: Performing Lab: Notes/Report: wbc 6.6 3.5 - 10 lymph 22.1% 15 - 50 mid 6.6% 2 - 15 gran 71.3% 35 - 80 rbc 4.76 3.5 - 5.5 hgb 14.5 11.5 - 16.5 hct 43.4 35 - 55 mcv 91.2 75 - 100 mch 30.4 25 - 35 mchc 33.4 31 - 38 platlet 305 100 - 400 P-Comprehensive Metabolic Pa hay (CMP) Reviewed date:12/04/2024 11:24:04 AM Interpretation:Normal Performing Lab: Notes/Report: Test performed by [facility], [address] [place] [address] , [address], [place] [address] Kai Kaplan MD, Internet Researcher CLIA: [id number] Sodium 139 135-145 mmol/L Potassium 3.7 3.5-5.3 mmol/L Chloride 102 97-108 mmol/L CO2 25 20-32 mmol/L Glucose 92 65-99 mg/dL BUN 22 8-23 mg/dL Creatinine 0.97 0.50-1.00 mg/dL Calcium 9.1 8.6-10.4 mg/dL eGFR by Creatinine 60 >59 mL/min/1.73m2 Protein 6.5 6.0-8.3 g/dL Albumin 4.1 3.5-5.3 g/dL Alkaline Phosphatase 121 35-121 IU/L ALT (SGPT) 16 <5-47 IU/L AST (SGOT) 20 <5-40 IU/L Bilirubin, Total 1.1 <0.2-1.2 mg/dL A/G Ratio 1.7 1.1-2.5 P-Culture, Urine Reviewed date:12/05/2024 04:10:17 PM Interpretation:No Significant Growth Performing Lab: Notes/Report: Test performed by [facility] [address] [place] [address] [address], [place] [address] Kai Kaplan MD, Internet Researcher CLIA: [id number] Specimen Source Urine - Void Culture, Urine See Below Final Report : No Significant Growth P-Magnesium Reviewed date:12/04/2024 11:24:04 AM Interpretation:Normal Performing Lab: Notes/Report: Test performed by [facility] [address] [place] [address] [address], [place] [address] Kai Kaplan MD, Internet Researcher CLIA: [id number] Magnesium 1.9 1.6-2.4 mg/dL P-Phosphorus Reviewed date:12/04/2024 11:24:04 AM Interpretation:Normal Performing Lab: Notes/Report: Test performed by [facility] [address] [place] [address] [address], [place] [address] Kai Kaplan MD, Internet Researcher CLIA: [id number] Phosphorus 3.6 2.5-4.5 mg/dL REASON FOR VISIT [facility] f/u Medications Medication SIG (Take, Route, Frequency, Duration) Notes Start Date End Date Status Triamcinolone Acetonide 0.1 % 1 applicat ion Externally Twice a day 06/01/2024 Active hydroCHLOROthiazide 25 MG 1 tab(s) orall y once a day; Duration: 90 days Active Atorvastatin Calcium 20 MG 1 tablet Oral ly Once a day; Duration: 90 days Active Levothyroxine Sodium 75 MCG 1 tablet in the morning on an empty stomach Orally Once a day; Duration: 90 days Active Losartan Potassium 100 MG 1 tablet Orall y Once a day; Duration: 90 days Active Vital Signs Blood pressure systolic 130 mm Hg 12/04/19 25 Blood pressure diastolic 80 mm Hg 025 Heart Rate 83 /min 12/03/2024 Height 60.50 in 12/03/2024 Weight 163.2 lbs 12/03/2024 BMI 31.34 kg/m2 12/03/2024 Encounters Encounter Location Date Provider Diagnosis [facility] [address] [place] [id number] 12/03/2024 Artem Osborne Acute UTI N39.0 ; Ac renée diarrhea R19.7 ; Recurrent headache R51.9 and Generalized weakness R53.1 Assessments Encounter Date Diagnosis (ICD Code) Assessment Notes Treatment Notes Treatment Clinical Notes Section Notes 12/03/2024 Acute UTI (ICD-10 - N39.0) 12/03/2024 Acute diarrhea (ICD-10 - R19.7) 12/03/2024 Recurrent headache (ICD-10 - R51.9) 12/03/2024 Generalized weakness (ICD-10 - R53.1) 12/03/2024 Other Discharge summary with available lab/diagnostic imaging results obtained and reviewed. Discharge medication list reconciled. Appropriate counseling provided. Moderate Complexity Plan Of Treatment Treatment Notes Assessment Notes Other Discharge summary wi available lab/diagnostic imaging results obtained and reviewed. Discharge medication list reconciled. Appropriate counseling provided. Moderate Complexity Next Appt Details Follow Up: via phone to repo rt test results, Reason: Provider Name:Artem Garcia ry, 05/13/2025 10:15:00 AM, [address], [address], [place], [id number], Progress Notes * Satinder MARINOOB:1945 (79 yo F)Acc No.[id number]:12/03/2024 Progress Notes Patient: Pebbles MANCIA Provider: Teagan Osborne M.D. :1945 A ge:79 Y S ex:Female Date:12/03/2024 Address:[address], [place], [id number] Subjective: * Chief Complaints: * 1 . H f/u. * HPI: H PI: Patient is here today for a Transition of Care Visit. Discharge from the following Facility: [facility] following admission for acute UTI and sepsis , Discharge date: Tuesday11/24/2024 ,Date of phone contact following discharge: 11/27/2024. Pt was admitted for UTI and Colitis due to C ampylobacter and EPEC. Pt states she has completed abx and all symptoms have improved. Pt states she does not have any concerns today. * ROS: D ERMATOLOGY: no R adam. [...] Adhesions 1959, cholecystectomy 1996, oophorectomy, bilateral 2004, Colonoscopy 2015, colonoscopy 2017. * Hospitalization/Major Diagno stic [...] smoking status: no. * Medications: T aking Triamcinolone Acetonide 0.1 % Cream 1 application Externally Twice a day , Taking Atorvastatin Calcium 20 MG Tablet 1 tablet Orally Once a day , Taking Levothyroxine Sodium 75 MCG Tablet 1 tablet in the morning on an empty stomach Orally Once a day , Taking Losartan Potassium 100 MG Tablet 1 tablet Orally Once a day , Taking hydroCHLOROthiazide 25 MG Tablet 1 tab(s) orally once a day , Discontinued Nitrofurantoin Monohyd Macro 100 MG Capsule 1 capsule with food Orally every 12 hrs , Discontinued Cefuroxime Axetil 500 MG Tablet 1 tablet Orally every 12 hrs , Medication List reviewed and reconciled with the patient * Allergies: N .K.D.A. Objective: * Vitals: W t: 163.2, Temp: 97.7, BP: 130/80, HR: 83, Nurse: tomasa, Ht: 60.50, BMI:31.34. * Examination: G eneral Examination: General Appearance: N AD. H eart: R SR. L ungs:?clear to auscultation. A bdomen: b owel sounds present, soft, minimal LLQ tenderness to palpation. Assessment: * Assessment: 1. A cute UTI - N39.0 (Primary) 2 . A cute diarrhea - R19.7 ?3. R ecurrent headache - R51.9 4 . G eneralized weakness - R53.1 ? Plan: * Treatment: Value Reference Range C ulture, Urine See Below - * S pecimen Source Urine - Void - * Katherine Vazquez 12/05/2024 04:05: 47 PM EDT > LM for pt to return Aric Katherine 12/05/2024 04:09:15 PM EDT > Pt notified ?LAB: Urinalysis - Inhouse (Collection Date & Time - 12/03/2024)* Value Reference Range L euk Trace * N itrite Neg * U robili 3.2 * P rotein Neg * p H 7.0 * B lood Neg * S p. Gr. 1.015 * K etone Neg * B nini Neg * G abhi Neg * Katherine Vazquez 12/03/2024 10:36: 07 AM EDT > Provider reviewed results while patient in office.Artem Osborne 12/03/2024 09:58:48 PM EDT > 2.?Acute diarrhea?LAB: P-Comprehensive Metabolic Panel (CMP) (Collection Date & Time - 12/03/2024 09:55 AM)?Normal* Value Reference Range A /G Ratio 1.7 1.1-2.5 - * A lbumin 4.1 3.5-5.3 - g/dL * A lkaline Phosphatase 121 35-121 - IU/L * A LT (SGPT) 16 <5-47 - IU/L * A ST (SGOT) 20 <5-40 - IU/L * B ilirubin, Total 1.1 <0.2-1.2 - mg/dL * B UN 22 8-23 - mg/dL * C alcium 9.1 8.6-10.4 - mg/dL * C hloride 102 97-108 - mmol/L * C O2 25 20-32 - mmol/L * C reatinine 0.97 0.50-1.00 - mg/dL * G lucose 92 65-99 - mg/dL * P otassium 3.7 3.5-5.3 - mmol/L * S odium 139 135-145 - mmol/L * P rotein 6.5 6.0-8.3 - g/dL * e GFR by Creatinine 60 >59 - mL/min/1.73m2 * Sheila Larios 12/04/2024 11: 17:46 AM EDT > blood work is all normal, urine culture is still pending. Katherine Vazquez 12/04/2024 11:22:52 AM EDT > Pt informed ?LAB: CBC Venipuncture (in house) (Collection Date & Time - 12/03/2024)* Value Reference Range w bc 6.6 3.5 - 10 * l ymph 22.1% 15 - 50 * m id 6.6% 2 - 15 * g ran 71.3% 35 - 80 * r bc 4.76 3.5 - 5.5 * h gb 14.5 11.5 - 16.5 * h ct 43.4 35 - 55 * m cv 91.2 75 - 100 * m ch 30.4 25 - 35 * m chc 33.4 31 - 38 * p latlet 305 100 - 400 * Katherine Vazquez 12/03/2024 01:53: 15 PM EDT >Artem Osborne 12/03/2024 09:58:24 PM EDT > 3.?Generalized weakness?LAB: P-Comprehensive Metabolic Panel (CMP) (Collection Date & Time - 12/03/2024 09:55 AM)?Normal* Value Reference Range A /G Ratio 1.7 1.1-2.5 - * A lbumin 4.1 3.5-5.3 - g/dL * A lkaline Phosphatase 121 35-121 - IU/L * A LT (SGPT) 16 <5-47 - IU/L * A ST (SGOT) 20 <5-40 - IU/L * B ilirubin, Total 1.1 <0.2-1.2 - mg/dL * B UN 22 8-23 - mg/dL * C alcium 9.1 8.6-10.4 - mg/dL * C hloride 102 97-108 - mmol/L * C O2 25 20-32 - mmol/L * C reatinine 0.97 0.50-1.00 - mg/dL * G lucose 92 65-99 - mg/dL * P otassium 3.7 3.5-5.3 - mmol/L * S odium 139 135-145 - mmol/L * P rotein 6.5 6.0-8.3 - g/dL * e GFR by Creatinine 60 >59 - mL/min/1.73m2 * Sheila Larios 12/04/2024 11: 17:46 AM EDT > blood work is all normal, urine culture is still pending. Katherine Vazquez 12/04/2024 11:22:52 AM EDT > Pt informed ?LAB: P-Magnesium (Collection Date & Time - 12/03/2024 09:55 AM)?Normal* Value Reference Range M agnesium 1.9 1.6-2.4 - mg/dL * Sheila Larios 12/04/2024 11: 17:46 AM EDT > blood work is all normal, urine culture is still pending. Katherine Vazquez 12/04/2024 11:22:52 AM EDT > Pt informed ?LAB: P-Phosphorus (Collection Date & Time - 12/03/2024 09:55 AM)?Normal* Value Reference Range P hosphorus 3.6 2.5-4.5 - mg/dL * Sheila Larios 12/04/2024 11: 17:46 AM EDT > blood work is all normal, urine culture is still pending. Katherine Vazquez 12/04/2024 11:22:52 AM EDT > Pt informed 4.?Others? Notes: Discharge summary with available lab/diagnostic imaging results obtained and reviewed. Discharge medication list reconciled. Appropriate counseling provided. Moderate Complexity?? * Procedure Codes: G 2211 Complex e/[place], [address] TRANS CARE MGMT 14 DAY DISCH, 1111F DSCHR MED/CURENT MED MERGE, 76240 Urinalysis, no micro, 18506 CBC WITH AUTO DIFF, 1036F TOBACCO NON-USER, G8783 BP SCR PRFRM RCMDD DEFIND SCR INTVL, G8752 MOST RECENT SYSTOLIC BP < 140MM HG, G8754 MOST RECENT DIASTOLIC BP < 90MM HG * Follow Up: v ia phone to report test results * Images: Billing Information: * Visit Code: 78657 Office Visit, Est Pt., Level 4. * Procedure Codes: G2211 Complex e/[place]. [address] TRANS CARE MGMT 14 DAY DISCH. 1111F DSCHR MED/CURENT MED MERGE. 68903 Urinalysis, no micro. 83111 CBC WITH AUTO DIFF. 1036F TOBACCO NON-USER. G8783 BP SCR PRFRM RCMDD DEFIND SCR INTVL. G8752 MOST RECENT SYSTOLIC BP < 140MM HG. G8754 MOST RECENT DIASTOLIC BP < 90MM HG. * Electronic signature of Yusra Osborne MD on 12/26/2024 at 09:28 AM EDT Sign off status: Pending * Provider: Teagan Osborne M.D. Date: 12/03/2024 Generated for Valentina leblanc/Fabio/eTransmitting on: 12/26/2024 09:28 AM EDT History and Physical Notes * HPI (History of Present Illness) Category Sub-Category Detail Notes Category Not es HPI [facility] Discharge from the following Facility: [facility] following admission for acute UTI and sepsis ,Discharge date: Tuesday11/24/2024 ,Date of phone contact following discharge: 11/27/2024. Pt was admitted for UTI and Colitis due to Campylobacter and EPEC. Pt states she has completed abx and all symptoms have improved. Pt states she does not have any concerns today Examination Category Sub-Category Detail Notes Category Not es General Examination Heart: RSR Lungs: clear to auscultatio n Abdomen: bowel sounds present , soft, minimal LLQ tenderness to palpation General Appearance: NAD
--- NOTE | 2024-12-26 09:27 | XR_ITS ---
FINAL REPORT TECHNIQUE: Bone densitometry calculations of the lumbar spine and bilateral hips were obtained. CLINICAL HISTORY: SCREENING COMPARISON: None FINDINGS: Using L1-4, the bone mineral density of the spine is 1.104 g/cm2, corresponding to T-score of 0.5. Using the left hip, the bone mineral density of the femoral neck is 0.669 g/cm2, corresponding to a T-score of -2.2. Using the right hip, the bone mineral density of the femoral neck is 0.770 g/cm2, corresponding to a T-score of -1.4. NOTE: T-score: Standard deviation compared with peak bone mass of young adult mean. *Following the recommendations of the International Society of Bone densitometry, classification of hip BMD is based on the lower of two T-scores; total hip or femoral neck. IMPRESSION: Diminished bone mineral density of the bilateral hips consistent with osteopenia. Normal bone mineral density of the lumbar spine, although this may impart be secondary to hypertrophic changes of the lumbar spine. Reviewed, Interpreted and Dictated by Steve Guadarrama MD Transcribed by Adriana Thapa Authenticated and . [facility]
--- OUTSIDE RECORDS SUMMARY | 2024-12-26 09:28 | XMS_ITS | Patient Health Record ---
Author Organization [facility] Address [address] [place] [address] Care Team Providers Care Senior Sous Chef Name Role Phone Artem Osborne Primary Care Provider Loco Diggs Unavailable Migration, Provider Unavailable Unavailable Allergies No [...] interaction check* Active Losartan Potassium 100 MG Tablet 1 tab(s) orally once a day; Duration: 30 day(s) 09/07/2021 Active Social History Social History General Social Info Question Answer Notes Personal History Marital status / Partnered (p ortal) Do you have a partner or loved one who provides emotional support or feels safe to talk to? Yes (portal) Do you have a partner or loved one who can help with physical tasks (driving, cooking, helping to move) if you are unable to do so for yourself? Yes (portal) What is your highest level of education? Some college (portal) What is your work status? 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 No (portal) Do you drink soda, pop, or sweet drinks (eg coffee) more than 2-3 times per week? Yes (portal) Problems Problem Type SNOMED Code ICD Code Onset Dates Problem Status W/U Status Risk Notes Problem Cervical root syndrome (664076924) Cervical root disorders, not elsewhere classified (G54.2) Active confirmed Problem Cervical spondylosis without myelopathy (559982621) Spondylosis without myelopathy or radiculopathy , cervical region (M47.812) Active confirmed Problem Thoracic spondylosis without myelopathy (659454309) Spondylosis without myelopathy or radiculopathy , thoracic region WRM (M47.814) Active confirmed Problem Occipital neuralgia (06227470) Occipital neuralgia WRM (M54.81) Active confirmed Problem Long-term current use of drug therapy (510691866) MCC (current) drug therapy WRM (Z79.899) Active confirmed Problem Brachial plexus disorder (4203383) Brachial plexopathy (G54.0) Active confirmed Problem Trigeminal neuralgia (36440720) Trigeminal neuralgia (G50.0) Active confirmed Problem Brachial plexus disorder (8112562) Brachial plexopathy WRM (G54.0) Active confirmed Problem Cervical spondylosis without myelopathy (170029982) Cervical spondylosis without myelopathy (M47.812) Active confirmed [...] an emphasis on an RFA to produce care home pain management symptoms. Problem Cervical spinal stenosis (32994481) Cervical spinal stenosis (M48.02) Active confirmed Encounters Encounter Location Date Provider Diagnosis [facility] [address] [place] [address] 04/14/2024 Provider Migration Plan Of Treatment Pending Test Test Name Order Date CMBB - Cervical 2-Level - Right (91831-5 ) 10/20/2021 Urine Drug Testing 09/07/2021 Future Test Test Name Order Date CMBB - Cervical 2-Level - Right (92797-1 ) 09/07/2021 TMBB - Thoracic 2-Level - Right (58746-2 ) 09/11/2021 TMJ Injection w/ fluoro - Right () 09/11/2021 Insurance Providers Payer Name Payer Address Payer Phone Subscriber Number Group Number Insured Name Patient Relationship to Insured Coverage Start Date Coverage End Date [place] [address] [place] [address] [id number] Pebbles Jackson Self - patient is the insured 2 [facility] Medicare Supplement [facility] [employer] [address] [place] [address] [id number] Pebbles Jackson Self - patient is the insured 2 Medical (General) History Medical History History ICD Code Headaches: Yes(portal) Thyroid disease: Yes(portal) Hypertension Dyslipidemia shingles - left forehead about 2017 shingles - possible on right forehead ab out 2019 Surgical History Surgery Date(Month/Year) Appendectomy addhesions gallbladder ovary removal thyroid removal with radation Hospitalization History Reason Date(Month/Year) Child Kidney Stones
--- OUTSIDE RECORDS SUMMARY | 2024-12-26 09:28 | XMS_ITS | Patient Health Record ---
[facility] [address] [facility] [address] [place] [id number] Care Team Providers Care Medical Collector Name Role Phone Artem Osborne Primary Care [...] Interpretation:Normal Performing Lab: Notes/Report: Test performed by [facility] [address] [place], [place] [address] [place] , [place] [address] Kai Kaplan MD, Production Sound Mixer CLIA: [id number] Thyroxine Free (free T4) 1.49 0.86-1.76 ng/dL P-TSH Reviewed date:11/08/2024 03:16:25 PM Interpretation:7.8 Performing Lab: Notes/Report: Test performed by [facility] [address] [place] [address] , [address], [place] [address] Kai Kaplan MD, Production Sound [employer]er CLIA: [id number] TSH 7.80 0.43-5.25 mU/L TEN-UTI panel Reviewed date:11/11/2024 01:21:48 PM Interpretation:Abnormal Performing Lab: Notes/Report: Abnormal Urinalysis - Inhouse Reviewed date:12/03/2024 09:58:56 PM [...] Interpretation:Normal Performing Lab: Notes/Report: Test performed by [facility] [address] [place] [address] , [address], [place] [address] Kai Kaplan MD, Production [employer] CLIA: [id number] Sodium 139 135-145 mmol/L Potassium 3.7 3.5-5.3 [...] Growth Performing Lab: Notes/Report: Test performed by [facility] [address] [place], [place] [address] [address] , [address], [place] [address] Kai Kaplan MD, Production Sound [employer] CLIA: [id number] Specimen Source Urine - Void Culture, Urine See Below Final Report : No Significant Growth P-Magnesium Reviewed date:12/04/2024 11:24:04 AM Interpretation:Normal Performing Lab: Notes/Report: Test performed by [facility] , [address], [place] [address] Kai Kaplan MD, Production Sound [employer]er CLIA: [id number] Magnesium 1.9 1.6-2.4 mg/dL P-Phosphorus Reviewed date:12/04/2024 11:24:04 AM Interpretation:Normal Performing Lab: Notes/Report: [facility] , [address], [place] [address] Kai Kaplan MD, Production Sound [employer]er CLIA: [id number] Phosphorus 3.6 2.5-4.5 mg/dL P-Microalbumin/Creatinine, R andom Urine Sample Reviewed date:06/04/2024 08:39:24 AM Interpretation: Normal Performing Lab: Notes/Report: Test performed by [facility] [address] , [address], [place] [address] Kai Kaplan MD, Production [employer]er CLIA: [id number] Albumin/Creatinine Ratio, Urine 22 0-30 ug/mg Microalbumin, Urine, Random 1.8 Creatinine, Urine 80.1 P-TSH Reviewed date:06/04/2024 08:39:24 AM Interpretation:6.44 Performing Lab: Notes/Report: Test performed by [facility] , [address], [place] [address] Kai Kaplan MD, Production [employer]er CLIA: [id number] TSH 6.44 0.43-5.25 mU/L P-Lipid Panel Reviewed date:06/04/2024 08:39:24 AM Interpretation:non-hdl 144 Performing Lab: Notes/Report: Test performed by [facility] [address] , [address], [place] [address] Kai Kaplan MD, Production [employer] CLIA: [id number] Cholesterol 199 <200 mg/dL Triglycerides 90 <150 [...] Results: 126 Units: mg/dL % Change: +57% P-T4 Free (thyroxine) Reviewed date:06/04/2024 08:39:24 AM Interpretation: Normal Performing Lab: Notes/Report: Test performed by [facility], [address], [place] [address] Kai Kaplan MD, Production Sound Mixer CLIA: [id number] Thyroxine Free (free T4) 1.56 0.86-1.76 ng/dL P-Comprehensive Metabolic Pa hay (CMP) Reviewed date:06/04/2024 08:39:24 AM Interpretation:bun 25, alk phos 136 Performing Lab: Notes/Report: Test performed by [facility], [address] , [address], [place] [address] Kai Kaplan MD, Production [employer]er CLIA: [id number] Sodium 138 135-145 mmol/L Potassium 4.2 3.5-5.3 [...] 1.0 <0.2-1.2 mg/dL A/G Ratio 1.7 1.1-2.5 H-Magnesium Reviewed date:11/26/2024 04:51:28 PM Interpretation: Performing Lab: Notes/Report: MG 1.9 1.6-2.3 mg/dl Delta: 1.3 on 11/22/24-1010 H-CMP Reviewed date:11/26/2024 04:51:28 PM Interpretation: Performing Lab: Notes/Report: NA 136 136-145 mmol/L K 3.8 3.5-5.1 mmoL/L Delta: 2.9 on 11/23/24-15 CL 109 98-107 mmol/L CO2 22 22.0-30.0 mmol/L GAP 8.8 5-15 mEq/L BUN 14 7-17 mg/dl CREATT 0.80 0.52-1.04 mg/dl CRCLE 55 50-200 mL/min GFRAA 84 >60 ML/MIN EGFR 69 >60 ml/min GLU 95 74-100 mg/dl CA 8.2 8.4-10.2 mg/dl BILIT 0.7 0.2-1.3 mg/dl AST 32 14-36 U/L ALT 14 12-78 U/L TP 6.0 6.3-8.2 g/dl ALB 3.6 3.5-5.0 g/dl GLOB 2.4 1.3-3.2 g/dL AGRATIO 1.5 1.1-1.8 ALP 109 38-126 U/L H-CBC Reviewed date:11/26/2024 04:51:28 PM Interpretation: Performing Lab: Notes/Report: WBC 10.0 4.8-10.8 K/mm3 RBC 3.79 4.20-5.40 M/mm3 HGB 11.4 12.2-16.2 g/dL HCT 35.0 37.0-47.0 % MCV 92.3 81-99 fl MCH 30.1 27.0-31.2 pg MCHC 32.6 31.8-35.4 g/dL RDW-SD 47.2 RDW 13.9 11.5-17.5 % PLT 183 142-424 K/mm3 MPV 9.6 7.4-10.4 fl NE% 76.8 37.0-80.0 % LY% 14.6 10-50 % MO% 5.0 1.7-9.3 % EO% 2.5 0.1-12.0 % BA% 0.5 0.1-2.0 % NRBC% 0 IG% 0.6 NE# 7.7 1.8-7.8 K/mm3 LY# 1.5 0.7-4.5 K/mm3 MO# 0.5 0.1-1.0 K/mm3 EO# 0.3 0.0-0.4 Kmm3 BA# 0.1 0-0.2 K/mm3 NRBC# 0 IG# 0.06 H-Diarrhea 6-11 Panel, Cdiff PCR Reviewed date:11/26/2024 04:51:28 PM Interpretation: Performing Lab: Notes/Report: CAMPYLOBACTER Detected NotDetected NOTIFICATION RESULT Results called to: Tisha CARVER on 11/23/24 at 1510 By Adam Roca, MYRON CLOSTR DIFFICIL Not Detected NotDetected PLESIOMONAS Not Detected NotDetected SALMONELLA, PCR Not Detected NotDetected YERSINIA Not Detected NotDetected VIBRIO, PCR Not Detected NotDetected VIBRIO CHOLERAE Not Detected NotDetected ECOLI (EAEC) Not Detected NotDetected ECOLI (EPEC) Detected NotDetected NOTIFICATION RESULT Results called to: Tisha CARVER on 11/23/24 at 1512 By Adam Roca MLT ECOLI (ETEC) Not Detected NotDetected SHIGATOXIN Not Detected NotDetected ECOLI O157 Not Detected NotDetected SHIG-INVAS ECOL Not Detected NotDetected CRYPTO Not Detected NotDetected CYCLOSPORA Not Detected NotDetected EHISTOLYTICA Not Detected NotDetected GIARDIA Not Detected NotDetected ADENO STOOL Not Detected NotDetected ASTROVIRUS Not Detected NotDetected NOROVIRUS Not Detected NotDetected ROTOVIRUS A Not Detected NotDetected SAPOVIRUS Not Detected NotDetected H-CMP Reviewed date:11/26/2024 04:51:28 PM Interpretation: Performing Lab: Notes/Report: NA 138 136-145 mmol/L K 2.9 3.5-5.1 mmoL/L Delta: 3.7 on 11/22/24-1010 CRITICAL RESULT Results called and read back/verified to: Tisha CARVER on 11/23/24 at 0831 By Anjali Elkins CL 101 98-107 mmol/L CO2 27 22.0-30.0 mmol/L GAP 12.9 5-15 mEq/L BUN 14 7-17 mg/dl Delta: 19 on -1010 CREATT 0.90 0.52-1.04 mg/dl CRCLE 56 50-200 mL/min GFRAA 73 >60 ML/MIN EGFR 61 >60 ml/min GLU 115 74-100 mg/dl CA 8.2 8.4-10.2 mg/dl BILIT 0.7 0.2-1.3 mg/dl AST 26 14-36 U/L ALT 13 12-78 U/L TP 6.1 6.3-8.2 g/dl ALB 3.5 3.5-5.0 g/dl Delta: 4.4 on 11/22/24 GLOB 2.6 1.3-3.2 g/dL AGRATIO 1.3 1.1-1.8 ALP 91 38-126 U/L H-CBC Reviewed date:11/26/2024 04:51:28 PM Interpretation: Performing Lab: Notes/Report: WBC 9.2 4.8-10.8 K/mm3 Delta: 17.6 o n 11/22/24 RBC 3.74 4.20-5.40 M/mm3 HGB 11.5 12.2-16.2 g/dL Delta: 13.0 o n 11/22/24 HCT 34.3 37.0-47.0 % MCV 91.7 81-99 fl MCH 30.7 27.0-31.2 pg MCHC 33.5 31.8-35.4 g/dL RDW-SD 47.3 RDW 14.0 11.5-17.5 % PLT 175 142-424 K/mm3 MPV 8.8 7.4-10.4 fl NE% 81.6 37.0-80.0 % LY% 12.0 10-50 % MO% 4.3 1.7-9.3 % EO% 1.4 0.1-12.0 % BA% 0.3 0.1-2.0 % NRBC% 0 IG% 0.4 NE# 7.5 1.8-7.8 K/mm3 LY# 1.1 0.7-4.5 K/mm3 MO# 0.4 0.1-1.0 K/mm3 EO# 0.1 0.0-0.4 Kmm3 BA# 0.0 0-0.2 K/mm3 NRBC# 0 IG# 0.04 Reason For Referral No Information Medications Medication [...] Once a day; Duration: 90 days Active Immunizations Vaccine Route Administration Date Status Comme nts yIelrzjs-etqovuyqi-ddibaku e pts. IM Intramuscular 04/09/2011 Administered Prevnar [...] Risk Notes Problem Solitary nodule of lung (595762990) Lung nodule (R91.1) Active confirmed Problem Cervical radiculopathy (64323431) Cervical radiculopathy (M54.12) Active confirmed Problem Pure hypercholesterolemia (429490640) Pure hypercholesterolemia (E78.0) Active confirmed Problem Hypomagnesemia (742664409) Hypomagnesemia (E83.42) Active confirmed Problem Occipital neuralgia (74807032) Occipital neuralgia (M54.81) Active confirmed Problem Cervical disc diseas e (739023142) Cervical disc disease (M50.90) Active confirmed Problem Acquired hypothyroidism (262600189) Acquired hypothyroidism (E03.9) Active confirmed Problem Obesity (153809552) Non morbid o besity, unspecified obesity type (E66.9) Active confirmed Problem Sacroiliitis (67793321) Sacroiliitis (M46.1) Active confirmed Problem Sciatica (19419929) Right sided sciatica (M54.31) Active confirmed Problem Postablative hypothyroidism (367112130) Postablative hypothyroidism (E89.0) Active confirmed Problem Disorder of neck (762959305) Disorder of neck (M53.82) Active confirmed Problem Essential hypertension (75882386) Essential hypertension, hypertension with unspecified goal (I10) Active confirmed Problem Pharyngeal dysphagia (12135340870876) Pharyngeal dysphagia (R13.13) Active confirmed Problem Pure hypercholesterolemia (883246858) Pure hypercholesterolemia (E78.00) Active confirmed Problem Arthropathy of cervical spine facet joint (disorder) (933971478) Facet arthropathy, cervical (M47.812) Active confirmed Vital Signs Heart Rate 83 /min 12/03/2024 Blood pressure diastolic 80 mm Hg 12/03/2024 Height 60.50 in 12/03/2024 Blood pressure systolic 130 mm Hg 12/03/2024 Weight 163.2 lbs 12/03/2024 BMI 31.34 kg/m2 12/03/2024 Encounters Encounter Location Date Provider Diagnosis [facility] [address] [place], [place] [id number] 06/01/2024 Artem Moraga Essential hypertensi on, hypertension with unspecified goal I10 ; Pure hypercholesterolemia E78.00 ; Acquired hypothyroidism E03.9 and Rash R21 [facility] [address] [place], [place] [id number] 11/07/2024 Artem Moraga Acute UTI N39.0 ; Es sential hypertension, hypertension with unspecified goal I10 ; Acquired hypothyroidism E03.9 and Non morbid obesity, unspecified obesity type E66.9 [facility] [address] [place], [place] [id number] 12/03/2024 Artem Moraga Acute UTI N39.0 ; Ac [place] diarrhea R19.7 ; Recurrent headache R51.9 and Generalized weakness R53.1 [facility] [address] [facility] [address] [place], [place] [id number] 06/04/2024 Artem Moraga [facility] [address] [facility] [address] [place], [place] [id number] 11/08/2024 Artem Moraga Acquired hypothyroid ism E03.9 and Essential hypertension, hypertension with unspecified goal I10 [facility] [address] [facility] [address] [place], [place] [id number] 11/19/2024 Artem Moraga Screening for osteop orosis Z13.820 [facility] [address] [place] [id number] 11/27/2024 Artem Osborne Assessments Encounter Date Diagnosis (ICD Code) Assessment Notes Treatment Notes Treatment Clinical Notes Section Notes 06/01/2024 Essential hypertensi on, hypertension with unspecified goal (ICD-10 - I10) 06/01/2024 Pure hypercholesterolemia (ICD-10 - E78.00) 11/07/2024 Acute UTI (ICD-10 - N39.0) 11/07/2024 Essential hypertensi on, hypertension with unspecified goal (ICD-10 - I10) 11/08/2024 Acquired hypothyroid ism (ICD-10 - E03.9) 11/19/2024 Screening for osteoporosis (ICD-10 - Z13.820) 12/03/2024 Acute diarrhea (ICD- 10 - R19.7) 12/03/2024 Acute UTI (ICD-10 - N39.0) 12/03/2024 Recurrent headache (ICD-10 - R51.9) 06/01/2024 Acquired hypothyroid ism (ICD-10 - E03.9) 11/08/2024 Essential hypertensi on, hypertension with unspecified goal (ICD-10 - I10) 11/07/2024 Acquired hypothyroid ism (ICD-10 - E03.9) 11/07/2024 Non morbid obesity, unspecified obesity type (ICD-10 - E66.9) 12/03/2024 Generalized weakness (ICD-10 - R53.1) 06/01/2024 Rash (ICD-10 - R21) 12/03/2024 Other Discharge summary with available lab/diagnostic imaging results obtained and reviewed. Discharge medication list reconciled. Appropriate counseling provided. Moderate Complexity Plan Of Treatment Pending Test Test Name Order Date Bone density 11/19/2024 Next Appt Details Provider Name:Artem paul, 05/13/2025 10:15:00 AM, [address], [address], [place], [id number], Insurance Providers Payer Name Payer Address Payer Phone Subscriber Number Group Number Insured Name Patient Relationship to Insured Coverage Start Date Coverage End Date MEDICARE PART B [address] [address] [place] [address] [id number] Pebbles Jackson Self - patient is the insured [employer] INSURANCE [address] [place] [address] [id number] Jozef Jackson Spouse - patient is the [...] Adhesions 1959 cholecystectomy 1996 oophorectomy, bilateral 2005 Colonoscopy 2016 colonoscopy 2018 Hospitalization History Reason Date(Month/Year)
== END 2024-12-26 23:59 | disposition home or self-care (01) ==
LOC: RAD 09:25
PROVIDERS: PCP Family Medicine; Visit Provider Family Medicine
DX: M85.852 Other specified disorders of bone density and structure, left thigh (principal); M85.851 Other specified disorders of bone density and structure, right thigh; M81.0 Age-related osteoporosis without current pathological fracture
CPT/HCPCS: 77080